=== PATIENT | female | born 1945 | race Caucasian/White ===

== ENCOUNTER → 2016-06-12 | Day surgery (SDC) | payer OTHER ==
[~2016-06-12] VITALS: Ht 162.6 cm; Wt 90.7 kg
[~2016-06-12] MED LIST: ASPIRIN EC81 M1 PO; BYSTOLIC10 M1 PO; DAILY MULTIPLE1 EACH PO; ELIQUIS5 M1 PO; ELIQUIS5 M2 PO; ESCITALOPRAM OX20 MG PO; FLEXERIL 5MG TAB5 MG PO; MELOXICAM15 M1 PO; METFORMIN HCL1000 M1 PO; METFORMIN HCL500 M2 PO; METFORMIN HCL500 M3 PO; SAVELLA PO; SAVELLA50 M1 PO; SIMVASTATIN40 M1 PO; VALSARTAN160 M1 PO; ZOLPIDEM TARTRAT5 M1 PO
--- NOTE | 2016-06-12 11:53 | Operative Report ---
Operative/Inv Procedure Report Surgery Date: 06/12/16 Name of Procedure: Left partial mastectomy with wire localization and sentinel lymph node biopsy Pre-Operative Diagnosis: Left breast cancer, status post neoadjuvant chemotherapy Post-Operative Diagnosis: Same Estimated Blood Loss: less than 50ml Surgeon/Off Track Betting Manager: ANITA ZHAO MD Anesthesia: laryngeal mask airway Specimens: [place] lymph node 1, left lumpectomy, cranial margin, caudal margin, medial margin, lateral margin, deep margin, anterior margin Operative/Procedure Note Note: Patient was brought to the operating room on 06/12/2016 and placed supine on the table. Preoperative lymphoscintigraphy and needle localization were performed and those films were reviewed. She was given 2 g of Ancef in the left breast was prepped and draped in a sterile fashion using ChloraPrep. 3 mL of methylene blue diluted with 2 mL saline was injected in the retroareolar fashion. Local anesthesia 1% lidocaine mixed half percent Marcaine was given and the axilla was approached first. A transverse incision was made in the lower axilla. The axilla was entered and a single hot lymph node was identified and excised. There were no other hot, blue, or palpable lymph nodes in the axilla. Hemostasis adequate, clavipectoral fascia was closed using interrupted Vicryl sutures, and the skin was closed using a running Biosyn subcutaneous color stitch. The breast was then approached. After ministering local anesthesia, a curvilinear incision was made in the periareolar region. The wire was dissected and brought into the incision. The area of concern was grasped using an Allis clamp and dissected. The specimen was removed and marked for orientation using margin map. Intraoperative x-ray confirmed the presence of the clip in the specimen. Margins were taken in the cranial, caudal, medial, lateral, deep, and anterior positions. This was adequate. A 2 x 2 BioSorb Marker was placed area and this was fastened to the adjacent tissue using Maxon sutures. Deep tissue was proximal made using Vicryl sutures. Was closed using running Biosyn subcuticular stitch. Stretchers and sterile dressings were applied, the patient 's transferred to the recovery room in satisfactory condition having tolerated the procedure well.
--- NOTE | 2016-06-12 14:20 | MAMMOGRAPHY REPORT ---
EXAMINATION: MM PREOPERATIVE LOCALIZATION BREAST, LEFT CLINICAL INFORMATION: A 70-year-old female with invasive ductal carcinoma, diagnosed on ultrasound-guided biopsy done on 01/13/2016. Preoperative needle localization is requested. TECHNIQUE: After the details of the procedure, as well as the risks, benefits and alternatives to the procedure, were explained to the patient in detail, and all of her questions were answered, preoperative needle localization was performed. Mammographic imaging of the left breast in the LM projection confirms the presence of a tissue marker (ribbon-shaped metallic clip) at the site of the prior ultrasound-guided biopsy at 1:00, 6 cm from the nipple. The skin of the left breast was then cleansed with sterile solution. Using mammographic guidance, aseptic technique and 2% 6 mL lidocaine for local anesthesia, a 5 cm Vow To Be Chic needle-wire system was advanced into the breast from a lateral approach. Orthogonal views were then obtained. Final adjustments of the needle tip position were made, and the wire deployed. The needle was taken out. The patient tolerated the procedure well, and was discharged from the department of radiology in good stable condition. The images were appropriately labelled. A worksheet was appropriately filled out and was sent with the patient to the OR. IMPRESSION: Successful mammographically-guided preoperative needle localization of the clinically known, biopsy proved invasive ductal carcinoma at 1:00, 6 cm from the nipple within the left breast. EXAMINATION: MM NEEDLE LOCALIZATION SPECIMEN FROM BREAST, LEFT TECHNIQUE: Single radiograph of the excised breast tissue is performed. FINDINGS: The specimen shows the hookwire is delivered intact. The biopsy clip marker and the underlying mass are identified in the specimen IMPRESSION: Successful needle localization of the biopsy-proven invasive ductal carcinoma at 1:00, 6 cm from the nipple within the left breast. Results were called to Dr. Gomez in the operating room at the time of imaging. The histology report is pending.
== END ==
LOC: STS 01:51 → CBW.IIU 08:00 → STS 08:00 → CBW.MAMMO 08:30
DX: C50.912 Malignant neoplasm of unspecified site of left female breast (principal); Z17.1 Estrogen receptor negative status [ER-]; E11.9 Type 2 diabetes mellitus without complications; Z79.84 Long term (current) use of oral hypoglycemic drugs; I10 Essential (primary) hypertension
CPT/HCPCS: 88305; 88307; C9728; J0131; J0690; J2001; J2250

== ENCOUNTER 2016-09-01 13:52 | Inpatient (IN) | payer OTHER ==
[~2016-09-01] VITALS: Ht 162.6 cm; Wt 88.5 kg
[~2016-09-01 13:52] MED LIST changes: -BYSTOLIC10 M1 PO; -ELIQUIS5 M1 PO; -ELIQUIS5 M2 PO; -MELOXICAM15 M1 PO; -METFORMIN HCL1000 M1 PO; -METFORMIN HCL500 M3 PO; -SAVELLA PO
--- NOTE | 2016-09-01 14:00 | NUR ---
70 YEAR OLD FEMALE STATES THAT SHE IS UNDERGOING TREATMENTS FOR L BREAST CANCER AND THAT LAST TREATMENT WAS WEDNESDAY. STARTED NOT FEELING WELL WEDNESDAY, EXERTIONAL SOB, O2 SAT 100% ON RA, COMPLAINS OF FACIAL SWELLING AND SLEEPING ALOT . ALSO COMPLAINS OF L SIDE NECK AND EAR PAIN THAT STARTED SATUDAY. DENIES CP.
--- NOTE | 2016-09-01 14:59 | NUR ---
DR. SCHMIDT TO BEDSIDE FOR EVALUATION.
--- NOTE | 2016-09-01 15:20 | NUR ---
PROVIDING URINE SPEC.
--- NOTE | 2016-09-01 15:44 | RADIOLOGY REPORT ---
EXAMINATION: XR CHEST CLINICAL INFORMATION: Shortness of breath. COMPARISON: Chest x-ray 09/01/2016. CTA of chest 05/07/2016 TECHNIQUE: 2 views of the chest were obtained. FINDINGS: No change position Central port catheter tip in superior vena cava. Lungs are clear. No pulmonary vascular congestion. No infiltrate or pleural effusion. Cardiac and mediastinal contours are normal. Heart size is normal. Multilevel endplate degenerative spurring of dorsal spine. Surgical clips in left anterior chest wall. IMPRESSION: No acute abnormality of chest.
[2016-09-01 16:00] LABS: ABSOLUTE BASOPHIL COUNT 0 /CUMM (0.0-0.2); ABSOLUTE EOSINOPHIL COUNT 0 /CUMM (0.0-0.7); ABSOLUTE GRANULOCYTE CT 7.1 /CUMM (1.4-6.5); ABSOLUTE LYMPH COUNT 0.9 /CUMM (1.2-3.4); ABSOLUTE MONOCYTE COUNT 0.2 /CUMM (0.10-0.60); BASOPHIL % 0.2 % (0.0-2.0); EOSINOPHIL % 0.5 % (0-5); GRANULOCYTE % 85.9 % (42.2-75.2); MEAN CORPUSCULAR HGB CONC 33.5 G/DL (33.0-37.0); MEAN CORPUSCULAR VOLUME 86.6 FL (81.0-99.0); MEAN PLATELET VOLUME 8.6 FL (7.4-10.4); PLATELET COUNT 334 /CUMM (130-400); RBC DISTRIBUTION WIDTH 17.1 % (11.5-14.5); RED BLOOD CELL CT 3.11 /CUMM (4.20-5.40); WHITE BLOOD CELL COUNT 8.3 /CUMM (4.8-10.8)
[2016-09-01] MEDS ORDERED: METFORMIN HCL500 M3 PO (16:31)
[2016-09-01] MEDS ORDERED: SAVELLA PO (16:32)
[2016-09-01] MEDS ORDERED: BYSTOLIC10 M1 PO (16:32)
[2016-09-01] MEDS ORDERED: MELOXICAM15 M1 PO (16:33)
--- NOTE | 2016-09-01 17:02 | ED DYSPNEA/ASTHMA COMPLAINT ---
History of Present Illness General Chief Complaint: General Adult Stated Complaint: SOB, FACIAL SWELLING, BEING TREATED FOR BREAST CA Source: patient, friend Exam Limitations: no limitations Vital Signs & Intake/Output Vital Signs & Intake/Output Vital Signs Date Time Temp Pulse Resp B/P B/P Pulse O2 O2 Flow FiO2 Mean Ox Delivery Rate 09/01 1642 100 18 132/64 97 Room Air 09/01 1357 97.5 106 20 116/78 100 Room Air Allergies Coded Allergies: No Known Allergies (06/08/16) Reconcile Medications Aspirin (Ecotrin*) 81 MG TABLET.DR 1 TAB PO DAILY PROPHO (Reported) Escitalopram Oxalate 20 MG TABLET 1 TAB PO DAILY ANXIETY / DEPRESSION ( Reported) Meloxicam 15 MG TABLET 1 TAB PO DAILY PAIN/INFLAMMATION (Reported) Metformin HCl 500 MG TABLET 1 TAB PO BID DM (Reported) Metformin HCl (Metformin HCl ER) 500 MG TAB.ER.24 1 TAB PO DAILY DM II ( Reported) Milnacipran HCl (Savella) 25 MG TABLET 1 TAB PO BID PAIN (Reported) Multivitamin (Daily Multiple Vitamin) 1 EACH TABLET 1 TAB PO DAILY PROPHO ( Reported) Nebivolol HCl (Bystolic) 10 MG TABLET 1 TAB PO DAILY BP (Reported) Simvastatin (Simvastatin*) 40 MG TABLET 1 TAB PO QPM CHOLESTEROL (Reported) Valsartan 160 MG TABLET 1 TAB PO DAILY HTN (Reported) Zolpidem Tartrate 5 MG TABLET 1 TAB PO QPMP INSOMNIA (Reported) Triage Note: 70 YEAR OLD FEMALE STATES THAT SHE IS UNDERGOING TREATMENTS FOR L BREAST CANCER AND THAT LAST TREATMENT WAS WEDNESDAY. STARTED NOT FEELING WELL WEDNESDAY, EXERTIONAL SOB, O2 SAT 100% ON RA, COMPLAINS OF FACIAL SWELLING AND SLEEPING ALOT . ALSO COMPLAINS OF L SIDE NECK AND EAR PAIN THAT STARTED SATUDAY. DENIES CP. Triage Nurses Notes Reviewed? yes HPI: 70 yo F PMH HTN, HLD, BCA (on chemotherapy) presenting with shortness of breath. Acute onset shortness of breath starting this afternoon while patient was walking/exercising with her friend, safely worse with exertion. ROS (+) for some right upper back pain for the last 3-4 days (worse with movement of neck and right shoulder, nonpleuritic) and intemittent urinary Sx with dysuria and increased frequency for the last month. Denies fevers, chills, chest pain, palpitations, lower extremity swelling or pain, recent immobility or hospitalization hospitalization, abdominal pain, nausea, vomiting, diarrhea, melena, hematochezia, headaches, neck pain, she'll changes or other focal neurologic symptoms. Patient receives chemotherapy for breast cancer once a week on , patient has not had these symptoms previously related to chemotherapy. (LILIAM BRADFORD MD) Past History Travel History Traveled to [place] past 21 day No Medical History Any Pertinent Medical History? see below for history Neurological: NONE EENT: NONE Cardiovascular: NONE Respiratory: NONE Gastrointestinal: NONE Hepatic: NONE Renal: NONE Musculoskeletal: FIBROMYALGIA Psychiatric: NONE Endocrine: NONE Blood Disorders: NONE Cancer(s): breast cancer HEATER HELPER/Reproductive: NONE Surgical History Surgical History: non-contributory Psychosocial History What is your primary language Nepali Tobacco Use: Never used ETOH Use: denies use Illicit Drug Use: denies illicit drug use Family History Hx Contributory? Yes (LILIAM BRADFORD MD) Review of Systems Review of Systems Constitutional: Reports: no symptoms. EENTM: Reports: no symptoms. Respiratory: Reports: short of breath. Denies: cough, stridor, wheezing. Cardiovascular: Denies: chest pain, palpitations, peripheral edema, syncope. GI: Reports: no symptoms. Genitourinary: Reports: no symptoms. Musculoskeletal: Reports: back pain, muscle pain, muscle stiffness. Skin: Reports: no symptoms. Neurological/Psychological: Reports: no symptoms. Hematologic/Endocrine: Reports: no symptoms. Immunologic/Allergic: Reports: no symptoms. All Other Systems: Reviewed and Negative (LILIAM BRADFORD MD) Physical Exam Physical Exam General Appearance: well developed/nourished, no apparent distress, alert, awake Head: atraumatic Eyes: Bilateral: PERRL, EOMI. Ears, Nose, Throat: normal pharynx, normal ENT inspection Neck: normal inspection, full range of motion Respiratory: normal breath sounds, no respiratory distress, lungs clear Cardiovascular: normal peripheral pulses, Tachycardic Peripheral Pulses: 2+ radial (R), 2+ radial (L), 2+ dorsalis pedis (R), 2+ dorsalis pedis (L) Gastrointestinal: normal bowel sounds, soft, non-tender Comments: Pulmonary: Lungs clear to auscultation throughout without adventitious lung sounds, normal work of breathing without respiratory distress Extremities: No appreciable lower extremity edema or tenderness to palpation. Core Measures ACS in differential dx? Yes Severe Sepsis Present: No Septic Shock Present: No (SUZETTE GO,LILIAM) Progress Differential Diagnosis: asthma, AMI, altitude sickness, bronchitis, costochondritis, CHF, COPD, musculoskeletal pain, pericarditis, pulmonary embolism, pneumonia, pneumothorax, rib fracture, unstable angina Plan of Care: Orders Procedure Date/time Status Regular Diet 09/02 B Active Add-on Test (ER Only) 09/01 2137 Active ED Holding Orders 09/01 2129 Active Vital Signs 09/01 2129 Active Code Status 09/01 2129 Active PARTIAL THROMBOPLASTIN TIME 09/01 2056 Complete PROTHROMBIN TIME 09/01 2056 Complete Patient Data 09/01 2050 Active Weight 09/02 2039 Active Admit to inpatient 09/01 2030 Active CULTURE,URINE 09/01 163 Active EKG 09/01 1559 Active URINALYSIS 09/01 1508 Complete TROPONIN LEVEL 09/01 1508 Complete HEPATIC FUNCTION PANEL 09/01 1508 Complete CBC WITHOUT DIFFERENTIAL 09/01 1508 Complete BASIC METABOLIC PANEL 09/01 1508 Complete Intake & Output 09/01 1506 Active Current Medications Sig/Estephania Start time Last Medication Dose Stop Time Status Admin Heparin Sodium 5,000 UNIT .Q1M 09/01 2014 AC 09/01 (Porcine) 2114 N/A 1 UNIT (No Carrier) Heparin Sodium 25,000 UNIT Q24H 09/01 2014 AC 09/01 (Porcine) 2114 (Heparin) Sodium Chloride 500 ML Trimethoprim/ 1 TAB ONCE ONE 09/01 1515 CAN Sulfamethoxazole 09/01 1516 (Bactrim DS) Laboratory Tests 09/01/162058: PT 13.3 H, INR 1.27 H, APTT 26 09/01/16 1630: Urine Color YEL, Urine Clarity HAZY H, Urine pH 5.5, Ur Specific [place] 1.025, Urine Protein 100 H, Urine Ketones NEG, Urine Nitrite NEG, Urine Bilirubin NEG, Urine Urobilinogen 0.2, Ur Leukocyte Esterase SMALL H, Ur Microscopic SEDIMENT EXAMINED, Urine RBC 15-25 H, Urine WBC 15-25 H, Ur Epithelial Cells FEW, Urine Bacteria FEW H, Hyaline Casts RARE H, Urine Mucus FEW, Urine Hemoglobin MOD H , Urine Glucose 250 H 09/01/16 1518: Anion Gap 12, Estimated GFR > 60, BUN/Creatinine Ratio 30.0 H, Glucose 223 H, Calcium 9.6, Total Bilirubin 0.6, Direct Bilirubin 0.3, AST 37 H, ALT 80 H, Alkaline Phosphatase 132 H, Troponin I 0.03, Total Protein 6.0 L, Albumin 3.7, CBC w Diff NO MAN DIFF REQ, RBC 3.11 L, MCV 86.6, MCH 29.0, RDW 17.1 H, MPV 8.6, Gran % 85.9 H, Lymphocytes % 11.2 L, Monocytes % 2.2, Eosinophils % 0.5, Basophils % 0.2, Absolute Granulocytes 7.1 H, Absolute Lymphocytes 0.9 L, Absolute Monocytes 0.2, Absolute Eosinophils 0, Absolute Basophils 0, PUBS MCHC 33.5 Microbiology 09/01 1630 URINE ROUT: Urine Culture - RECD Physician MDM: 70 yo F PMH BCA presenting with acute onset shortness of breath. Tachycardic in the low 100s, otherwise VSS, afebrile, cardiopulmonary exam as above. DDx: Pneumonia, pneumothorax, pleural effusion, pericardial effusion, PE, ACS, chemotherapy therapy side effect. ECG sinus tachycardia, non-ischemic. Troponin negative. BMP with mild hyponatremia 134, BUN minimally elevated, mildly low bicarb at 21, glucose 246, normal anion gap, low concern for DKA. CBC with anemia Hgb 9.1 around baseline, normal platelets, no leukocytosis. Chest x-ray without focal consolidation or airspace disease. UA with 15-20 RBCs and WBCs, some bacteria, given urinary symptoms will treat with ceftriaxone in ED, Keflex if discharged. 1 L normal saline for dehydration on labs, elevated glucose, tachycardia. CTA PE with "Adequate contrast opacification of the pulmonary arterial vasculature, with small emboli identified within segmental and subsegmental branches of the right upper, right lower and left lower lobes. " Given normal BP with no evidence of right heart strain on labs or CT chest, patient stable for treatment at [facility] without transfer to higher level of care. Heparin GTT started after discussion of risks and benefits the patient. Admit to Dr. Hughes. (SUZETTE GO,LILIAM) Initial ED EKG: normal axis (SUZETTE GO,LILIAM) Diagnostic Imaging: Viewed by Me: CT Scan. Discussed w/RAD: CT Scan. Comments: PATIENT: NATALEE SWENSON PRESENT AGE: 70 PATIENT ACCOUNT NO: [id number] : 46 LOCATION: [facility] ORDERING PHYSICIAN: LILIAM BRADFORD MD SERVICE DATE: 09/01/16 EXAM TYPE: CAT - CTA CHEST-PULMONARY EMBOLISM EXAMINATION: CT ANGIOGRAM OF THE CHEST WITH AND WITHOUT CONTRAST (CT PULMONARY ANGIOGRAM FOR PE) CLINICAL INFORMATION: Chest pain. Evaluate for pulmonary embolism. COMPARISON: CTA chest 05/07/2016. CTA chest 11/22/2014. TECHNIQUE: Prior to contrast administration, noncontrast localization images were obtained. Subsequently, multidetector volumetric imaging was performed from the thoracic inlet to below the diaphragms following the administration of 95 mL Optiray 350 intravenous contrast. No contrast reaction reported. Sagittal, coronal, and MIP oblique sagittal reformatted images were obtained on the CT workstation, uploaded to PACS, and reviewed. Total exam dose-length product 557 mGy-cm. FINDINGS: QUALITY OF STUDY/CONTRAST BOLUS: Adequate contrast opacification of the pulmonary arterial vasculature. PULMONARY ARTERIES: Small intraluminal filling defects within segmental and subsegmental branches of the right upper, right lower and left lower lobes, indicative of pulmonary emboli. No large central pulmonary emboli. The pulmonary arteries are normal in caliber. THORACIC AORTA: Normal caliber of the thoracic aorta, without aneurysmal dilatation. LUNG: No focal consolidation, nodules or masses. PLEURA: No pleural effusion or pneumothorax. MEDIASTINUM: Normal heart size. No pericardial effusion. Prominent soft tissue mass within the anterior mediastinum measuring 1.5 x 1.6 cm, not significantly changed relative to a prior examination dated 11/22/2014. No significant hilar adenopathy. No evidence of septal bowing or right heart strain. CHEST WALL/AXILLA: No axillary or internal mammary lymphadenopathy. There are surgical clips within the left breast which may be related to recent left breast biopsy. OSSEOUS STRUCTURES: No acute osseous abnormality. Normal alignment of the thoracolumbar spine. No visible destructive osseous lesions. UPPER ABDOMEN: No acute findings within the upper abdomen. There is reflux of contrast into the hepatic veins and IVC. However, the right atrium and right ventricle are not dilated. IMPRESSION: 1. Adequate contrast opacification of the pulmonary arterial vasculature, with small emboli identified within segmental and subsegmental branches of the right upper, right lower and left lower lobes. Contrast is visualized within the hepatic veins as well as within the IVC. However, there is no dilatation of the right atrium and right ventricle and no straightening of the intraventricular septum to suggest right heart strain. 2. Redemonstrated is a soft tissue mass within the anterior mediastinum measuring 1.5 x 1.6 cm. This nodule does not appear significantly changed relative to a prior examination dated 11/22/2014. It may reflect residual thymic tissue although versus a prominent anterior mediastinal lymph node. This critical result was discussed with Dr. Liliam Bradford at 8:02 PM on 09/01/2016 and it was ascertained that the content and urgency of the report was understood at the time of direct communication. DICTATED BY: KELSEY LYON MD DATE/TIME DICTATED:09/01/161942 VOCATIONAL ED INSTRUCTOR:NANETTE DATE/TIME TRANSCRIBED:09/01/161942 CONFIDENTIAL, DO NOT COPY WITHOUT APPROPRIATE AUTHORIZATION. <Electronically signed in Other Vendor System> SIGNED BY: KELSEY LYON MD 09/01/162005 (WANDA SCHROEDER MD) Departure Departure Disposition: STILL A PATIENT Condition: Stable Clinical Impression Primary Impression: Pulmonary embolism Referrals: DENICE HUGHES MD (PCP/Family) Departure Forms: Customer Survey General Discharge Information Admission Note Spoke With: STEVE ZAMUDIO MD Documentation of Exam: Documentation of any treatments & extenuating circumstances including Concerns Regarding Discharge (functional status, medication knowledge or non-compliance, living conditions, etc.) that warrant an admission rather than observation: [ Patient is a 70-year-old female with a history of breast cancer who presents to the emergency department with acute onset shortness of breath and right upper back pain, tachycardic, found to have acute pulmonary embolism in multiple subsegments of her lungs, she requires admission for initiation of IV anticoagulants and bridging to PO anticoagulants, she requires admission for telemetry and monitoring for arrhythmias related to PE, she requires admission for IV antibiotics and treatment of UTI, she requires admission for ongoing fluid resuscitation for dehydration/hyperglycemia, if discharged without appropriately quite a treatment or inpatient monitoring the patient has a high risk of cardiovascular decompensation related to clots in her lungs, with possible significant morbidity and sudden .] (LILIAM BRADFORD MD) Critical Care Note Critical Care Note Critical Care Time: non-applicable (LILIAM BRADFORD MD)
--- NOTE | 2016-09-01 19:26 | NUR ---
PORT ACCESSED. PT TO CAT SCAN VIA STRETCHER.
--- NOTE | 2016-09-01 20:02 | NUR ---
DR. SCHMIDT TO BEDSIDE TO DISCUSS RESULTS AND POC.
--- NOTE | 2016-09-01 20:06 | CT SCAN REPORT ---
EXAMINATION: CT ANGIOGRAM OF THE CHEST WITH AND WITHOUT CONTRAST (CT PULMONARY ANGIOGRAM FOR PE) CLINICAL INFORMATION: Chest pain. Evaluate for pulmonary embolism. COMPARISON: CTA chest 05/07/2016. CTA chest 11/22/2014. TECHNIQUE: Prior to contrast administration, noncontrast localization images were obtained. Subsequently, multidetector volumetric imaging was performed from the thoracic inlet to below the diaphragms following the administration of 95 mL Optiray 350 intravenous contrast. No contrast reaction reported. Sagittal, coronal, and MIP oblique sagittal reformatted images were obtained on the CT workstation, uploaded to PACS, and reviewed. Total exam dose-length product 557 mGy-cm. FINDINGS: QUALITY OF STUDY/CONTRAST BOLUS: Adequate contrast opacification of the pulmonary arterial vasculature. PULMONARY ARTERIES: Small intraluminal filling defects within segmental and subsegmental branches of the right upper, right lower and left lower lobes, indicative of pulmonary emboli. No large central pulmonary emboli. The pulmonary arteries are normal in caliber. THORACIC AORTA: Normal caliber of the thoracic aorta, without aneurysmal dilatation. LUNG: No focal consolidation, nodules or masses. PLEURA: No pleural effusion or pneumothorax. MEDIASTINUM: Normal heart size. No pericardial effusion. Prominent soft tissue mass within the anterior mediastinum measuring 1.5 x 1.6 cm, not significantly changed relative to a prior examination dated 11/22/2014. No significant hilar adenopathy. No evidence of septal bowing or right heart strain. CHEST WALL/AXILLA: No axillary or internal mammary lymphadenopathy. There are surgical clips within the left breast which may be related to recent left breast biopsy. OSSEOUS STRUCTURES: No acute osseous abnormality. Normal alignment of the thoracolumbar spine. No visible destructive osseous lesions. UPPER ABDOMEN: No acute findings within the upper abdomen. There is reflux of contrast into the hepatic veins and IVC. However, the right atrium and right ventricle are not dilated. IMPRESSION: 1. Adequate contrast opacification of the pulmonary arterial vasculature, with small emboli identified within segmental and subsegmental branches of the right upper, right lower and left lower lobes. Contrast is visualized within the hepatic veins as well as within the IVC. However, there is no dilatation of the right atrium and right ventricle and no straightening of the intraventricular septum to suggest right heart strain. 2. Redemonstrated is a soft tissue mass within the anterior mediastinum measuring 1.5 x 1.6 cm. This nodule does not appear significantly changed relative to a prior examination dated 11/22/2014. It may reflect residual thymic tissue although versus a prominent anterior mediastinal lymph node. This critical result was discussed with Dr. Tanmay Kidd at 8:02 PM on 09/01/2016 and it was ascertained that the content and urgency of the report was understood at the time of direct communication.
--- NOTE | 2016-09-01 21:18 | NUR ---
HEPARIN DRIP INITIATED PER EMAR.
[2016-09-01 21:23] LABS: PT 13.3 SEC (9.4-12.5); PTT 26 SEC (25-37)
--- NOTE | 2016-09-01 23:18 | History & Physical ---
JORGE LUIS SOUZA 09/01/16 2318: General Information and HPI MD Statement: I have seen and personally examined NATALEE SWENSON and documented this H&P. The patient is a 70 year old F who presented with a patient stated chief complaint of Shortness of breath Source of Information: patient Exam Limitations: no limitations History of Present Illness: 70-year-old woman past medical history significant for recently diagnosed breast cancer in December 2015 on weekly chemotherapy 12/01 cycles status post radiation and lumpectomy, recently diagnosed diabetes mellitus, hypertension, fibromyalgia. Came to ED for evaluation of in for sudden onset shortness of breath. Stated after her last treatment of chemotherapy last week she felt weakness, and on Wednesday had facial swelling but did not think anything of it and attributed to chemotherapy swelling subsided. On Wednesday she went for work but she left calf day because she was feeling very tired. Yesterday she experienced sudden onset shortness of breathing while walking a few steps. Denied chest pain, palpitations lower extremity swelling, recent travel. Also reports 3 months of worsening urinary symptoms such as dysuria. She is also has seen a number of doctors including a cable cutter and swager. Denies abdominal pain, flank pain, fever, chills. Allergies/Medications Allergies: Coded Allergies: No Known Allergies (06/08/16) Home Med list Aspirin (Ecotrin*) 81 MG TABLET.DR 1 TAB PO DAILY PROPHO (Reported) Escitalopram Oxalate 20 MG TABLET 1 TAB PO DAILY ANXIETY / DEPRESSION ( Reported) Meloxicam 15 MG TABLET 1 TAB PO DAILY PAIN/INFLAMMATION (Reported) Metformin HCl 500 MG TABLET 1 TAB PO BID DM (Reported) Metformin HCl (Metformin HCl ER) 500 MG TAB.ER.24 1 TAB PO DAILY DM II ( Reported) Milnacipran HCl (Savella) 25 MG TABLET 1 TAB PO BID PAIN (Reported) Multivitamin (Daily Multiple Vitamin) 1 EACH TABLET 1 TAB PO DAILY PROPHO ( Reported) Nebivolol HCl (Bystolic) 10 MG TABLET 1 TAB PO DAILY BP (Reported) Simvastatin (Simvastatin*) 40 MG TABLET 1 TAB PO QPM CHOLESTEROL (Reported) Valsartan 160 MG TABLET 1 TAB PO DAILY HTN (Reported) Zolpidem Tartrate 5 MG TABLET 1 TAB PO QPMP INSOMNIA (Reported) Compliance With Home Meds: GOOD Past History Travel History Traveled to [place] past 21 day No Medical History Neurological: NONE EENT: NONE Cardiovascular: NONE Respiratory: NONE Gastrointestinal: NONE Hepatic: NONE Renal: NONE Musculoskeletal: FIBROMYALGIA Psychiatric: NONE Endocrine: NONE Blood Disorders: NONE Cancer(s): breast cancer GUEST RELATIONS EXECUTIVE/Reproductive: NONE Surgical History Surgical History: non-contributory Past Family/Social History Family History Relations & Conditions if any Relation not specified for: FHx: uterine cancer Psychosocial History Where do you live? Home Smoking Status: Never Smoked ETOH Use: denies use Illicit Drug Use: denies illicit drug use Functional Ability ADLs Independent: dressing, eating, toileting, bathing. Ambulation: independent IADLs Independent: shopping, housework, finances, food prep, telephone, transportation , medication admin. Review of Systems Review of Systems Constitutional: Reports: malaise, weakness. Denies: chills, diaphoresis, fever, unexplained weight loss. Cardiovascular: Denies: chest pain, edema, orthopena, palpitations, peripheral edema, syncope. Respiratory: Denies: cough, hemoptysis, orthopnea, short of breath, sputum production, stridor, wheezing. GI: Denies: abdominal pain, bloating, constipation, diarrhea, distention, bowel incontinence, melena, nausea, bloody stool, changes in stool, vomiting, steatorrhea. Genitourinary: Reports: dysuria. Denies: discharge, frequency, hematuria, hesitation, nocturia , pain, urgency. Exam & Diagnostic Data Last 24 Hrs of Vital Signs/I&O Vital Signs Date Time Temp Pulse Resp B/P B/P Pulse O2 O2 Flow FiO2 Mean Ox Delivery Rate 09/02 0558 98.2 97 17 140/68 96 Room Air 09/02 0237 97.7 99 17 144/79 97 Room Air 09/02 0058 97.5 114 18 150/86 09/01 2328 97.5 114 18 150/86 95 Room Air Room Air 09/01 2048 97.6 104 18 135/64 98 Room Air Room Air 09/01 1642 100 18 132/64 97 Room Air 09/01 1357 97.5 106 20 116/78 100 Room Air Intake & Output 09/02 0800 09/02 0000 09/01 1600 Intake Total 1000 Output Total Balance 1000 Intake, IV 1000 Patient 199 lb 199 lb 199 lb Weight Weight Reported by Patient Reported by Patient Measurement Method Physical Exam General Appearance Alert, Oriented X3, Cooperative, No Acute Distress HEENT Atraumatic, PERRLA, EOMI, Mucous Membr. moist/pink Neck Supple, No thryomegaly Lymphatic Axillary nl, Cervical nl Cardiovascular Regular Rate, Normal S1, Normal S2 Lungs Clear to Auscultation, Normal Air Movement Abdomen Normal Bowel Sounds, Soft, No Tenderness Extremities No Edema Diagnostic Data EKG Results sinus tachy, QTc 460 CXR Results FINDINGS: No change position Central port catheter tip in superior vena cava. Lungs are clear. No pulmonary vascular congestion. No infiltrate or pleural effusion. Cardiac and mediastinal contours are normal. Heart size is normal. Multilevel endplate degenerative spurring of dorsal spine. Surgical clips in left anterior chest wall. IMPRESSION: No acute abnormality of chest. Other Results CTA CHEST-PULMONARY EMBOLISM FINDINGS: QUALITY OF STUDY/CONTRAST BOLUS: Adequate contrast opacification of the pulmonary arterial vasculature. PULMONARY ARTERIES: Small intraluminal filling defects within segmental and subsegmental branches of the right upper, right lower and left lower lobes, indicative of pulmonary emboli. No large central pulmonary emboli. The pulmonary arteries are normal in caliber. THORACIC AORTA: Normal caliber of the thoracic aorta, without aneurysmal dilatation. LUNG: No focal consolidation, nodules or masses. PLEURA: No pleural effusion or pneumothorax. MEDIASTINUM: Normal heart size. No pericardial effusion. Prominent soft tissue mass within the anterior mediastinum measuring 1.5 x 1.6 cm, not significantly changed relative to a prior examination dated 11/22/2014. No significant hilar adenopathy. No evidence of septal bowing or right heart strain. CHEST WALL/AXILLA: No axillary or internal mammary lymphadenopathy. There are surgical clips within the left breast which may be related to recent left breast biopsy. OSSEOUS STRUCTURES: No acute osseous abnormality. Normal alignment of the thoracolumbar spine. No visible destructive osseous lesions. UPPER ABDOMEN: No acute findings within the upper abdomen. There is reflux of contrast into the hepatic veins and IVC. However, the right atrium and right ventricle are not dilated. IMPRESSION: 1. Adequate contrast opacification of the pulmonary arterial vasculature, with small emboli identified within segmental and subsegmental branches of the right upper, right lower and left lower lobes. Contrast is visualized within the hepatic veins as well as within the IVC. However, there is no dilatation of the right atrium and right ventricle and no straightening of the intraventricular septum to suggest right heart strain. 2. Redemonstrated is a soft tissue mass within the anterior mediastinum measuring 1.5 x 1.6 cm. This nodule does not appear significantly changed relative to a prior examination dated 11/22/2014. It may reflect residual thymic tissue although versus a prominent anterior mediastinal lymph node. Assessment/Plan Assessment: 70-year-old woman past medical history significant for recently diagnosed breast cancer in December 2015 on weekly chemotherapy 12/01 cycles status post radiation and lumpectomy, recently diagnosed diabetes mellitus, hypertension, fibromyalgia. Came to ED for evaluation of in for sudden onset shortness of breath. As Ranked By This Provider Problem List: 1. Pulmonary embolism Assessment/Plan Admit to telemetry floor for continuous cardiac monitoring Patient started on IV heparin Follow-up echo 2. Breast cancer Assessment/Plan Dr. Tillman's office informed 3. UTI (urinary tract infection) Assessment/Plan iv ceftriazone 4. DVT prophylaxis 5. Full code status Core Measures/Miscellaneous Acute Coronary Syndrome ACS Diagnosis: No Cerebrovascular Accident CVA/TIA Diagnosis: No Congestive Heart Failure CHF Diagnosis: No VTE (View Protocol) VTE Risk Factors: Age > 40, Cancer/chemo/oth therapy No Mech VTE prophylaxis d/t: No contraindications No VTE Pharm Prophylaxis d/t: No contraindications VTE Diagnosis: Yes VTE Type: Pulmonary Embolism VTE Confirmed by (Test): CT CHEST ANGIOGRAM Sepsis (View Protocol) Severe Sepsis Present: No Septic Shock Septic Shock Present: No Miscellaneous Documentation Attending Case Discussed With: STEVE ZAMUDIO MD Primary Care Physician: DENICE KRISHNA MD Patient sees these Specialists Dr. Tillman Level of Patient Care: Telemetry ENE ARANA 09/02/16 0513: Resident Review Statement Resident Statement: examined this patient, discussed with product marketing intern, discussed with case mgmt, reviewed images Other Findings: 70-year-old woman with recently diagnosed HER-2/keenan breast cancer, status post lumpectomy and sentinel node biopsy, currently on trastuzumab presented to [facility] ED with sudden onset shortness of breath, found to have pulmonary emboli on CTA, admitted to telemetry for observation and IV anticoagulation. Provoked VTE, in the setting of recent malignancy. Continue IV heparin for now. No right heart strain noted on CTA. Obtain 2-D echocardiogram to confirm the findings. May need weight dosed Lovenox for her PE, in the light of her recent cancer diagnosis. Please obtain formal hematology consult for decisions regarding choice of anticoagulation and duration. Urine positive for leukocyte esterase, continue IV ceftriaxone pending results of urine culture. IVF hydration. Continue other medications. Full code. Heart healthy diet. IV heparin as DVT prophylaxis for now. ERENDIRA GO,[facility] 09/02/16 0947: Attending MD Review Statement Attending Statement Attending MD Statement: examined this patient, discuss w/resident/PA/HAND [employer] MAKER, agreed w/resident/PA/HAND [employer] MAKER, reviewed EMR data (avail)
--- NOTE | 2016-09-01 23:32 | NUR ---
PT PLACED IN HOSPITAL BED, MOVED TO ROOM 4. RECIEVED REPORT FROM GÓMEZ CORTEZ. PT REMAINS ON HEPARIN DRIP AT 26MLS/HR. PT EATING BOXED LUNCH, TOLERATING WELL. PT OFFERING NO COMPLAINTS AT THIS TIME. SIDE RAILS UPRIGHT, CALL MALCOLM WITHIN REACH. LIGHTS DIMMED FOR COMFORT.
--- NOTE | 2016-09-02 00:12 | NUR ---
PT REQUESTING NIGHT TIME MEDICATIONS, HOUSE STAFF PAGED
--- NOTE | 2016-09-02 01:00 | NUR ---
PT MEDICATED WITH 50MG COZAAR, 20MG LIPITOR, AND 5MG AMBIEN PER EMAR. PT BP 150/86.
--- NOTE | 2016-09-02 02:12 | NUR ---
PT AMBULATED TO BATHROOM WITH STEADY GAIT NOTED, PT OFFERING NO COMPLAINTS AT THIS TIME. PLACED BACK ON WOOD SHINGLE ROOFER, NSR. WILL CTM.
--- NOTE | 2016-09-02 03:18 | NUR ---
PT REMAINS ASLEEP AT THIS TIME W/ RR NOTED. NO DISTRESS. NSR ON AEROPHYSICS ENGINEER. SIDE RAILS UPRIGHT, CALL MALCOLM WITHIN REACH. WILL CTM
--- NOTE | 2016-09-02 03:41 | NUR ---
PT IPOC IS UP TO DATE AT THIS TIME
--- NOTE | 2016-09-02 04:01 | NUR ---
PT IN SINUS TACH AT 108, NO COMPLAINTS OR DISTRESS AT THIS TIME.
--- NOTE | 2016-09-02 04:29 | NUR ---
PT REMAINS ASLEEP AT THIS TIME W/RR NOTED. NSR ON TEACHER CCLC. HEPARIN DRIP REMAINS AT 26MLS/HR PER EMAR. AUDIBLE SNORING HEARD. SIDE RAILS UPRIGHT. CALL MALCOLM WITHIN REACH. WILL CTM
--- NOTE | 2016-09-02 05:45 | NUR ---
PT AMBULATED TO BATHROOM WITH STEADY GAIT NOTED, NO DISTRESS.
--- NOTE | 2016-09-02 05:56 | NUR ---
EKG IN PROGRESS. BLOOD WORK OBTAINED AND SENT TO LAB -SST,YEISON STEELE FINGERSTICK DONE 224.
--- NOTE | 2016-09-02 05:59 | NUR ---
PT REMAINS NSR/ST ON INTEGRITY CONSULTANT @110. NO COMPLAINTS AT THIS TIME.
[2016-09-02 06:24] LABS: ABSOLUTE BASOPHIL COUNT 0 /CUMM (0.0-0.2); ABSOLUTE EOSINOPHIL COUNT 0.2 /CUMM (0.0-0.7); ABSOLUTE GRANULOCYTE CT 4.7 /CUMM (1.4-6.5); ABSOLUTE LYMPH COUNT 1.5 /CUMM (1.2-3.4); ABSOLUTE MONOCYTE COUNT 0.3 /CUMM (0.10-0.60); BASOPHIL % 0.3 % (0.0-2.0); EOSINOPHIL % 2.5 % (0-5); GRANULOCYTE % 69.6 % (42.2-75.2); HEMATOCRIT 26.3 % (37-47); MEAN CORPUSCULAR HGB 28.7 PG (27.0-31.0); MEAN CORPUSCULAR HGB CONC 33.1 G/DL (33.0-37.0); MEAN CORPUSCULAR VOLUME 86.8 FL (81.0-99.0); MEAN PLATELET VOLUME 8.5 FL (7.4-10.4); PLATELET COUNT 340 /CUMM (130-400); RED BLOOD CELL CT 3.04 /CUMM (4.20-5.40); WHITE BLOOD CELL COUNT 6.8 /CUMM (4.8-10.8)
--- NOTE | 2016-09-02 06:55 | NUR ---
PT REMAINS SINUS TACH AT 106 ON TRAINING AND DEVELOPMENT OFFICER. HEPARIN DRIP AT 26MLS/HR PER EMAR. NO COMPLAINTS AT THIS TIME. WILL CTM.
[2016-09-02 07:28] LABS: PTT 71 SEC (25-37)
--- NOTE | 2016-09-02 07:30 | NUR ---
ASSUMED CARE OF PT AT THIS TIME PT AWAKE, ALERT AND ORIENTED WITH NO COMPLAINTS. STATES SHE SLEPT "OK" AND IS COMFORTABLE AT THIS TIME. DENIES PAIN. DENIES SOB. SINUS TACH ON THE MONITOR, LOW 100'S (100-115). SAT 99% RA. HEPARIN DRIP INFUSING AT MAX DOSE 26 ML/HR. PER OVERNIGHT NURSE, PTT DUE AT 0300 PER PROTOCOL - WAS DRAWN AT 0600, ADDED ON AT 0700. RESULTED AT 71, WHICH REQUIRES NO CHANGE IN DRIP PER PROTOCOL. SPOKE WITH REGINALD ([id number]) WHO STATES OK TO CHECK NEXT PTT IN 12 HOURS FROM EARLIER DRAW WHICH WOULD BE 1800. STATESE PT WILL LIKELY BE ON ORAL ANTICOAGULANTS BY THEN - AWAITING INSURANCE APPROVAL. ALSO, PER REGINALD - NO ALPS NEED TO BE PLACED AT THIS TIME DUE TO HEPARIN DRIP AND PENDING LOWER EXTREMITY US FINGERSTICK 251. MED WITH INSULIN PER MAY. EATING OATMEAL.
[2016-09-02 08:50] VITALS: BP 130/82
--- NOTE | 2016-09-02 08:59 | PN- Housestaff ---
Subjective Follow-up For: Pulmonary embolism Complaints: no complaints Tele-Events Since Last Visit: No events Subjective: No active complaints Review of Systems Constitutional: Denies: chills, fever. EENTM: Denies: visual changes. Cardiovascular: Denies: chest pain, palpitations. Respiratory: Reports: short of breath. Denies: cough. Gastrointestinal: Denies: abdominal pain, nausea, vomiting. Objective Last 24 Hrs of Vital Signs/I&O Vital Signs Date Time Temp Pulse Resp B/P B/P Pulse O2 O2 Flow FiO2 Mean Ox Delivery Rate 09/02 1050 98.8 108 16 131/75 09/02 1049 98.8 108 16 131/75 09/02 0850 98.8 111 18 130/82 99 Room Air 09/02 0832 98.8 111 18 130/82 99 09/02 0558 98.2 97 17 140/68 96 Room Air 09/02 0237 97.7 99 17 144/79 97 Room Air 09/02 0058 97.5 114 18 150/86 09/01 2328 97.5 114 18 150/86 95 Room Air Room Air 09/01 2048 97.6 104 18 135/64 98 Room Air Room Air 09/01 1642 100 18 132/64 97 Room Air 09/01 1357 97.5 106 20 116/78 100 Room Air Intake & Output 09/02 1600 09/02 0800 09/02 0000 Intake Total 26 1000 Output Total 500 Balance 26 -500 1000 Intake, IV 26 1000 Output, Urine 500 Patient 199 lb 199 lb Weight Weight Reported by Patient Reported by Patient Measurement Method Physical Exam General Appearance: Alert, Oriented X3, Cooperative, No Acute Distress HEENT: Atraumatic, PERRLA Neck: No JVD Cardiovascular: Regular Rate, Normal S1, Normal S2, No Murmurs Lungs: Clear to Auscultation, Normal Air Movement Abdomen: Normal Bowel Sounds, Soft, No Tenderness Neurological: Normal Speech, Normal Tone Extremities: No Edema Current Medications: Current Medications Sig/Estephania Start time Last Medication Dose Route Stop Time Status Admin Aspirin Buffered 81 MG DAILY 09/02 1000 AC 09/02 PO 1050 Atorvastatin Calcium 20 MG 1700 09/02 1700 DC PO Atorvastatin Calcium 20 MG 1700 09/02 1700 AC PO Atorvastatin Calcium 20 MG ONCE ONE 09/02 0030 DC 09/02 PO 09/02 0031 0058 Ceftriaxone Sodium 1,000 MG 1800 09/02 1800 CAN Sodium Chloride 100 ML IV Ceftriaxone Sodium 0 .STK-MED ONE 09/01 1936 DC .ROUTE Ceftriaxone Sodium 1,000 MG ONCE ONE 09/01 1800 DC 09/01 IV 09/01 1801 1939 Diclofenac Sodium 1 MIKAL 4 TIMES/DAY PRN 09/01 2330 AC TOP Escitalopram Oxalate 20 MG DAILY 09/02 1000 AC 09/02 PO 1050 Heparin Sodium 0 .STK-MED ONE 09/01 2108 DC (Porcine) .ROUTE Heparin Sodium 5,000 UNIT .Q1M 09/01 2014 AC 09/01 (Porcine) IV PUSH 2115 N/A 1 UNIT Heparin Sodium 25,000 UNIT Q24H 09/01 2014 AC 09/01 (Porcine) IV 2115 Sodium Chloride 500 ML Ibuprofen 600 MG Q6P PRN 09/01 2315 AC PO Insulin Aspart 0 TIDAC 09/02 0800 AC 09/02 SC 1226 Losartan Potassium 50 MG DAILY 09/02 1000 AC 09/02 PO 1050 Losartan Potassium 50 MG ONCE ONE 09/02 0030 DC 09/02 PO 09/02 0031 0058 Metformin HCl 500 MG BID 09/02 1000 CAN PO Milnacipran HCl 25 MG DAILY 09/02 1000 AC 09/02 PO 1050 Multivitamins 1 TAB DAILY 09/02 1000 AC 09/02 Therapeutic PO 1050 Nebivolol 10 MG DAILY 09/02 1000 AC PO Oxycodone/ 1 TAB Q6P PRN 09/01 2315 AC Acetaminophen PO Sodium Chloride 1,000 ML SEE RATE 09/01 2315 DC IV 09/02 1234 Sodium Chloride 1,000 ML BOLUS ONE 09/01 1800 DC 09/01 IV 09/01 1959 1922 Trimethoprim/ 1 TAB ONCE ONE 09/01 1515 CAN Sulfamethoxazole PO 09/01 1516 Zolpidem Tartrate 5 MG AT BEDTIME 09/02 2200 DC PO Zolpidem Tartrate 0 .STK-MED ONE 09/02 0102 DC PO Zolpidem Tartrate 5 MG AT BEDTIME 09/02 0030 AC 09/02 PO 0058 Last 24 Hrs of Lab/Tio Results Last 24 Hrs of Labs/Mics: Laboratory Tests 09/02/16 0554: Anion Gap 9, Estimated GFR > 60, BUN/Creatinine Ratio 21.7, Hemoglobin A1c 7.8 H, Total Bilirubin 0.4, Direct Bilirubin 0.2, AST 26, ALT 62 H, Alkaline Phosphatase 129 H, Total Protein 5.4 L, Albumin 3.2 L, PT 13.0 H, INR 1.24 H, APTT 71 H, CBC w Diff NO MAN DIFF REQ, RBC 3.04 L, MCV 86.8, MCH 28.7, RDW 17.0 H, MPV 8.5, Gran % 69.6, Lymphocytes % 22.7, Monocytes % 4.9, Eosinophils % 2.5, Basophils % 0.3, Absolute Granulocytes 4.7, Absolute Lymphocytes 1.5, Absolute Monocytes 0.3, Absolute Eosinophils 0.2, Absolute Basophils 0, PUBS MCHC 33.1 09/01/16 2059: PT 13.3 H, INR 1.27 H, APTT 26 09/01/16 1630: Urine Color YEL, Urine Clarity HAZY H, Urine pH 5.5, Ur Specific Reading 1.025, Urine Protein 100 H, Urine Ketones NEG, Urine Nitrite NEG, Urine Bilirubin NEG, Urine Urobilinogen 0.2, Ur Leukocyte Esterase SMALL H, Ur Microscopic SEDIMENT EXAMINED, Urine RBC 15-25 H, Urine WBC 15-25 H, Ur Epithelial Cells FEW, Urine Bacteria FEW H, Hyaline Casts RARE H, Urine Mucus FEW, Urine Hemoglobin MOD H , Urine Glucose 250 H 09/01/16 1518: Anion Gap 12, Estimated GFR > 60, BUN/Creatinine Ratio 30.0 H, Glucose 223 H, Calcium 9.6, Total Bilirubin 0.6, Direct Bilirubin 0.3, AST 37 H, ALT 80 H, Alkaline Phosphatase 132 H, Troponin I 0.03, Total Protein 6.0 L, Albumin 3.7, CBC w Diff NO MAN DIFF REQ, RBC 3.11 L, MCV 86.6, MCH 29.0, RDW 17.1 H, MPV 8.6, Gran % 85.9 H, Lymphocytes % 11.2 L, Monocytes % 2.2, Eosinophils % 0.5, Basophils % 0.2, Absolute Granulocytes 7.1 H, Absolute Lymphocytes 0.9 L, Absolute Monocytes 0.2, Absolute Eosinophils 0, Absolute Basophils 0, PUBS MCHC 33.5 Microbiology 09/01 1630 URINE ROUT: Urine Culture - RES Lines/Diet/Fluids Lines: peripheral lines Restraints: none Assessment/Plan Assessment: 70-year-old with history of breast cancer recently diagnosed currently on chemotherapy presented to emergency department with shortness of breath on minimal exertion. Patient is admitted on telemetry so for the management of following problems Pulmonary embolism CAT scan showed small emboli within segmental and subsegmental branches of right upper, right lower and left lower lobes. Doppler ultrasound did not show any evidence of deep vein thrombosis in bilateral lower extremities. Patient is currently on IV heparin we will switch it to oral anticoagulation as suggested by hematology/oncology. Echocardiogram to rule out right heart strain pending Case discussed with rn case manager about novel oral anticoagulation medications if the insurance can cover these medications Once patient will be switched to by mouth anticoagulation patient will remain on that for at least 6 months. Patient is currently on IV heparin for DVT prophylaxis Patient is full code Patient is on heart healthy diet Patient is on pain pathway Problem List: 1. Breast cancer 2. Pulmonary embolism Pain Ratin Pain Location: NA Pain Goal: Pain 4 or less Pain Plan: Continue with current pain medications Tomorrow's Labs & Rationales: no labs needed DVT/Prophylaxis: pharmacological
--- NOTE | 2016-09-02 09:03 | NUR ---
IPOC UPDATED/MAINTAINED
--- NOTE | 2016-09-02 09:31 | NUR ---
PT GIVEN PERSONAL HYGIENE PRODUCTS WASHING UP AND BRUSHING TEETH - INDEPENDENTLY REMAINS WITHOUT ANY COMPLAINTS
--- NOTE | 2016-09-02 09:47 | PN- Att Addend ---
Attending Addendum Attending Brief Note Patient reports shortness of breath with minimal exertion. She does not have any other symptoms. General Appearance: Alert, No Acute Distress Skin: Grossly normal HEENT: PEERLA Neck: Supple, No JVD Cardiovascular: Regular Rate, Normal S1, Normal S2, No Murmurs Lungs: Clear to Auscultation, Normal Air Movement Abdomen: Normal Bowel Sounds, Soft, No Tenderness Neurological: Normal Speech, Strength at 5/5 X4 Ext, Cranial Nerves 3-12 NL, Reflexes 2+ Extremities: No Clubbing, No Cyanosis, No Edema Vascular: Normal Pulses Assessment 70-year-old with history of breast cancer recently diagnosed currently on chemotherapy with intervention to cure presenting with shortness of breath with minimal exertion. CAT scan suggested small emboli within segmental and subsegmental branches of right upper, right lower and left lower lobes. There is no CT findings of right heart strain. She is currently on IV antibiotics for UTI and urine cultures are negative. Plan Continue heparin drip Echocardiogram Discontinue IV antibiotics Check hemoglobin A1c Hold oral hypoglycemics and continue insulin sliding scale Continue other home medications Current Medications Sig/Estephania Start time Last Medication Dose Route Stop Time Status Admin Aspirin Buffered 81 MG DAILY 09/02 1000 AC PO Atorvastatin Calcium 20 MG 1700 09/02 1700 DC PO Atorvastatin Calcium 20 MG 1700 09/02 1700 AC PO Atorvastatin Calcium 20 MG ONCE ONE 09/02 0030 DC 09/02 PO 09/02 0031 0058 Ceftriaxone Sodium 1,000 MG 1800 09/02 1800 AC Sodium Chloride 100 ML IV Ceftriaxone Sodium 0 .STK-MED ONE 09/01 1936 DC .ROUTE Ceftriaxone Sodium 1,000 MG ONCE ONE 09/01 1800 DC 09/01 IV 09/01 1801 1939 Diclofenac Sodium 1 MIKAL 4 TIMES/DAY PRN 09/01 2330 AC TOP Escitalopram Oxalate 20 MG DAILY 09/02 1000 AC PO Heparin Sodium 0 .STK-MED ONE 09/01 2108 DC (Porcine) .ROUTE Heparin Sodium 5,000 UNIT .Q1M 09/01 2014 AC 09/01 (Porcine) IV PUSH 2115 N/A 1 UNIT Heparin Sodium 25,000 UNIT Q24H 09/01 2014 AC 09/01 (Porcine) IV 211 Sodium Chloride 500 ML Ibuprofen 600 MG Q6P PRN 09/01 2315 AC PO Insulin Aspart 0 TIDAC 09/02 0800 AC 09/02 SC 0844 Losartan Potassium 50 MG DAILY 09/02 1000 AC PO Losartan Potassium 50 MG ONCE ONE 09/02 0030 DC 09/02 PO 09/02 0031 0058 Metformin HCl 500 MG BID 09/02 1000 CAN PO Milnacipran HCl 25 MG DAILY 09/02 1000 AC PO Multivitamins 1 TAB DAILY 09/02 1000 AC Therapeutic PO Nebivolol 10 MG DAILY 09/02 1000 AC PO Oxycodone/ 1 TAB Q6P PRN 09/01 2315 AC Acetaminophen PO Sodium Chloride 1,000 ML SEE RATE 09/01 2315 AC IV 09/02 1234 Sodium Chloride 1,000 ML BOLUS ONE 09/01 1800 DC 09/01 IV 09/01 1959 1922 Trimethoprim/ 1 TAB ONCE ONE 09/01 1515 CAN Sulfamethoxazole PO 09/01 1516 Zolpidem Tartrate 5 MG AT BEDTIME 09/02 2200 DC PO Zolpidem Tartrate 0 .STK-MED ONE 09/02 0102 DC PO Zolpidem Tartrate 5 MG AT BEDTIME 09/02 0030 AC 09/02 PO 0058 Laboratory Tests 09/02 09/01 0554 2059 Chemistry Sodium (137 - 145 mmol/L) 138 Potassium (3.5 - 5.1 mmol/L) 4.0 Chloride (98 - 107 mmol/L) 104 Carbon Dioxide (22 - 30 mmol/L) 24 Anion Gap (5 - 16) 9 BUN (7 - 17 mg/dL) 13 Creatinine (0.5 - 1.0 mg/dL) 0.6 Estimated GFR (>60 ml/min) > 60 BUN/Creatinine Ratio (7 - 25 %) 21.7 Total Bilirubin (0.2 - 1.3 mg/dL) 0.4 Direct Bilirubin (< 0.4 mg/dL) 0.2 AST (14 - 36 U/L) 26 ALT (9 - 52 U/L) 62 H Alkaline Phosphatase (<127 U/L) 129 H Total Protein (6.3 - 8.2 g/dL) 5.4 L Albumin (3.5 - 5.0 g/dL) 3.2 L Coagulation PT (9.4 - 12.5 SEC) 13.0 H 13.3 H INR (0.90 - 1.19) 1.24 H 1.27 H APTT (25 - 37 SEC) 71 H 26 Hematology CBC w Diff NO MAN DIFF REQ WBC (4.8 - 10.8 /CUMM) 6.8 RBC (4.20 - 5.40 /CUMM) 3.04 L Hgb (12.0 - 16.0 G/DL) 8.7 L Hct (37 - 47 %) 26.3 L MCV (81.0 - 99.0 FL) 86.8 MCH (27.0 - 31.0 PG) 28.7 RDW (11.5 - 14.5 %) 17.0 H Plt Count (130 - 400 /CUMM) 340 MPV (7.4 - 10.4 FL) 8.5 Gran % (42.2 - 75.2 %) 69.6 Lymphocytes % (20.5 - 51.1 %) 22.7 Monocytes % (1.7 - 9.3 %) 4.9 Eosinophils % (0 - 5 %) 2.5 Basophils % (0.0 - 2.0 %) 0.3 Absolute Granulocytes (1.4 - 6.5 /CUMM) 4.7 Absolute Lymphocytes (1.2 - 3.4 /CUMM) 1.5 Absolute Monocytes (0.10 - 0.60 /CUMM) 0.3 Absolute Eosinophils (0.0 - 0.7 /CUMM) 0.2 Absolute Basophils (0.0 - 0.2 /CUMM) 0 PUBS MCHC (33.0 - 37.0 G/DL) 33.1 09/01 09/01 1630 1518 Chemistry Sodium (137 - 145 mmol/L) 134 L Potassium (3.5 - 5.1 mmol/L) 4.4 Chloride (98 - 107 mmol/L) 101 Carbon Dioxide (22 - 30 mmol/L) 21 L Anion Gap (5 - 16) 12 BUN (7 - 17 mg/dL) 18 H Creatinine (0.5 - 1.0 mg/dL) 0.6 Estimated GFR (>60 ml/min) > 60 BUN/Creatinine Ratio (7 - 25 %) 30.0 H Glucose (65 - 99 mg/dL) 223 H Calcium (8.4 - 10.2 mg/dL) 9.6 Total Bilirubin (0.2 - 1.3 mg/dL) 0.6 Direct Bilirubin (< 0.4 mg/dL) 0.3 AST (14 - 36 U/L) 37 H ALT (9 - 52 U/L) 80 H Alkaline Phosphatase (<127 U/L) 132 H Troponin I (< 0.11 ng/ml) 0.03 Total Protein (6.3 - 8.2 g/dL) 6.0 L Albumin (3.5 - 5.0 g/dL) 3.7 Hematology CBC w Diff NO MAN DIFF REQ WBC (4.8 - 10.8 /CUMM) 8.3 RBC (4.20 - 5.40 /CUMM) 3.11 L Hgb (12.0 - 16.0 G/DL) 9.0 L Hct (37 - 47 %) 27.0 L MCV (81.0 - 99.0 FL) 86.6 MCH (27.0 - 31.0 PG) 29.0 RDW (11.5 - 14.5 %) 17.1 H Plt Count (130 - 400 /CUMM) 334 MPV (7.4 - 10.4 FL) 8.6 Gran % (42.2 - 75.2 %) 85.9 H Lymphocytes % (20.5 - 51.1 %) 11.2 L Monocytes % (1.7 - 9.3 %) 2.2 Eosinophils % (0 - 5 %) 0.5 Basophils % (0.0 - 2.0 %) 0.2 Absolute Granulocytes (1.4 - 6.5 /CUMM) 7.1 H Absolute Lymphocytes (1.2 - 3.4 /CUMM) 0.9 L Absolute Monocytes (0.10 - 0.60 /CUMM) 0.2 Absolute Eosinophils (0.0 - 0.7 /CUMM) 0 Absolute Basophils (0.0 - 0.2 /CUMM) 0 PUBS MCHC (33.0 - 37.0 G/DL) 33.5 Urines Urine Color (YEL,AMB,STR) YEL Urine Clarity (CLEAR) HAZY H Urine pH (5.0 - 8.0) 5.5 Ur Specific [place] (1.001 - 1.035) 1.025 Urine Protein (NEG,<30 MG/DL) 100 H Urine Ketones (NEG) NEG Urine Nitrite (NEG) NEG Urine Bilirubin (NEG) NEG Urine Urobilinogen (0.1 - 1.0 EU/dl) 0.2 Ur Leukocyte Esterase (NEG) SMALL H Ur Microscopic SEDIMENT EXAMINED Urine RBC (0 - 5 /HPF) 15-25 H Urine WBC (0 - 2 /HPF) 15-25 H Ur Epithelial Cells (NONE,FEW) FEW Urine Bacteria (NEG/NONE) FEW H Hyaline Casts (0/LPF) RARE H Urine Mucus (FEW,NONE) FEW Urine Hemoglobin (NEG) MOD H Urine Glucose (N MG/DL) 250 H Vital Signs Date Time Temp Pulse Resp B/P B/P Pulse O2 O2 Flow FiO2 Mean Ox Delivery Rate 09/02 0850 98.8 111 18 130/82 99 Room Air 09/02 0832 98.8 111 18 130/82 99 09/02 0558 98.2 97 17 140/68 96 Room Air 09/02 0237 97.7 99 17 144/79 97 Room Air 09/02 0058 97.5 114 18 150/86 09/01 2328 97.5 114 18 150/86 95 Room Air Room Air 09/01 2048 97.6 104 18 135/64 98 Room Air Room Air 09/01 1642 100 18 132/64 97 Room Air 09/01 1357 97.5 106 20 116/78 100 Room Air
--- NOTE | 2016-09-02 09:47 | Admission Certification ---
Admission Certification Certification Statement - As attending physician, I certify that at the time of - admission, based on clinical presentation, severity of - symptoms, need for further diagnostic testing and - therapeutic interventions, and risk of adverse outcomes - without in-hospital treatment, in my clinical assessment, - this patient requires an acute hospital stay for a minimum - of two nights or longer. I have also considered psychsocial - factors such as support system, advanced age, financial - issues, cognitive issues, and failed out-patient treatments, - past re-admission history, safety of patient, and lack of - compliance as applicable. Specific rationale supporting this admission is: Acute PE
--- NOTE | 2016-09-02 09:51 | NUR ---
US AT BEDSIDE
--- NOTE | 2016-09-02 10:25 | Cons- Oncology ---
General Information and HPI Consulting Request Date of Consult: 09/02/16 Requested By: STEVE ZAMUDIO MD Reason for Consult: Breast cancer, pulmonary emboli Source of Information: patient Exam Limitations: no limitations History of Present Illness: Mr. Rubin is a 70-year-old female with stage IA HER2 postive breast cancer status partial mastectomy and AC chemotherapy and currently on paclitaxel and trastuzumab last on 08/27/2016 who presented to the hospital after found to have worsening shortness of breath with exertion. This symptoms started yesterday. She called the cancer center and was sent to the ED for evaluation. Over the past week, she has felt more fatigue and tired. She had left facial swelling but has improved. She denies any fever or chills. She has no nausea or vomiting. She denies any leg swelling. She still has some dysuria. In the ED, CTA was done and noted small emboli identified within segmental and subsegmental branches of the right upper, right lower and left lower lobes. She was also found to be in sinus tachycardia. She was started on heparin drip. She is feeling find right now. She denies any new symptoms. Allergies/Medications Allergies: Coded Allergies: No Known Allergies (06/08/16) Home Med List: Aspirin (Ecotrin*) 81 MG TABLET.DR 1 TAB PO DAILY PROPHO (Reported) Escitalopram Oxalate 20 MG TABLET 1 TAB PO DAILY ANXIETY / DEPRESSION ( Reported) Meloxicam 15 MG TABLET 1 TAB PO DAILY PAIN/INFLAMMATION (Reported) Metformin HCl 500 MG TABLET 1 TAB PO BID DM (Reported) Metformin HCl (Metformin HCl ER) 500 MG TAB.ER.24 1 TAB PO DAILY DM II ( Reported) Milnacipran HCl (Savella) 25 MG TABLET 1 TAB PO BID PAIN (Reported) Multivitamin (Daily Multiple Vitamin) 1 EACH TABLET 1 TAB PO DAILY PROPHO ( Reported) Nebivolol HCl (Bystolic) 10 MG TABLET 1 TAB PO DAILY BP (Reported) Simvastatin (Simvastatin*) 40 MG TABLET 1 TAB PO QPM CHOLESTEROL (Reported) Valsartan 160 MG TABLET 1 TAB PO DAILY HTN (Reported) Zolpidem Tartrate 5 MG TABLET 1 TAB PO QPMP INSOMNIA (Reported) Current Medications: Current Medications Sig/Estephania Start time Last Medication Dose Route Stop Time Status Admin Aspirin Buffered 81 MG DAILY 09/02 1000 AC PO Atorvastatin Calcium 20 MG 1700 09/02 1700 DC PO Atorvastatin Calcium 20 MG 1700 09/02 1700 AC PO Atorvastatin Calcium 20 MG ONCE ONE 09/02 0030 DC 09/02 PO 09/02 0031 0058 Ceftriaxone Sodium 1,000 MG 1800 09/02 1800 AC Sodium Chloride 100 ML IV Ceftriaxone Sodium 0 .STK-MED ONE 09/01 1936 DC .ROUTE Ceftriaxone Sodium 1,000 MG ONCE ONE 09/01 1800 DC 09/01 IV 09/01 1801 1939 Diclofenac Sodium 1 MIKAL 4 TIMES/DAY PRN 09/01 2330 AC TOP Escitalopram Oxalate 20 MG DAILY 09/02 1000 AC PO Heparin Sodium 0 .STK-MED ONE 09/01 2108 DC (Porcine) .ROUTE Heparin Sodium 5,000 UNIT .Q1M 09/01 2014 AC 09/01 (Porcine) IV PUSH 2115 N/A 1 UNIT Heparin Sodium 25,000 UNIT Q24H 09/01 2014 AC 09/01 (Porcine) IV 2115 Sodium Chloride 500 ML Ibuprofen 600 MG Q6P PRN 09/01 2315 AC PO Insulin Aspart 0 TIDAC 09/02 0800 AC SC Losartan Potassium 50 MG DAILY 09/02 1000 AC PO Losartan Potassium 50 MG ONCE ONE 09/02 0030 DC 09/02 PO 09/02 0031 0058 Metformin HCl 500 MG BID 09/02 1000 CAN PO Milnacipran HCl 25 MG DAILY 09/02 1000 AC PO Multivitamins 1 TAB DAILY 09/02 1000 AC Therapeutic PO Nebivolol 10 MG DAILY 09/02 1000 AC PO Oxycodone/ 1 TAB Q6P PRN 09/01 2315 AC Acetaminophen PO Sodium Chloride 1,000 ML SEE RATE 09/01 2315 AC IV 09/02 1234 Sodium Chloride 1,000 ML BOLUS ONE 09/01 1800 DC 09/01 IV 09/01 1959 1922 Trimethoprim/ 1 TAB ONCE ONE 09/01 1515 CAN Sulfamethoxazole PO 09/01 1516 Zolpidem Tartrate 5 MG AT BEDTIME 09/02 2200 DC PO Zolpidem Tartrate 0 .STK-MED ONE 09/02 0102 DC PO Zolpidem Tartrate 5 MG AT BEDTIME 09/02 0030 AC 09/02 PO 0058 Review of Systems Review of Systems Constitutional: Reports: malaise. Denies: chills, fever. Cardiovascular: Reports: palpitations. Denies: chest pain, peripheral edema. Respiratory: Denies: hemoptysis, short of breath. GI: Reports: nausea. Denies: abdominal pain. Genitourinary: Reports: dysuria. Musculoskeletal: Denies: back pain. Neurological/Psychological: Reports: anxiety. Hematologic/Endocrine: Denies: bruising, bleeding. All Other Systems: Reviewed and Negative Past History Travel History Traveled to [place] past 21 day No Medical History Neurological: NONE EENT: NONE Cardiovascular: NONE Respiratory: NONE Gastrointestinal: NONE Hepatic: NONE Renal: NONE Musculoskeletal: FIBROMYALGIA Psychiatric: NONE Endocrine: NONE Blood Disorders: NONE Cancer(s): breast cancer MANAGER MACHINE/Reproductive: NONE Surgical History Surgical History: non-contributory Family History Relations & Conditions If Any: Relation not specified for: FHx: uterine cancer Psychosocial History Where Do You Live? Home Smoking Status: Never Smoked ETOH Use: denies use Illicit Drug Use: denies illicit drug use Functional Ability ADLs Independent: dressing, eating, toileting, bathing. Ambulation: independent IADLs Independent: shopping, housework, finances, food prep, telephone, transportation , medication admin. Exam & Diagnostic Data Vital Signs and I&O Vital Signs Date Time Temp Pulse Resp B/P B/P Pulse O2 O2 Flow FiO2 Mean Ox Delivery Rate 09/02 0832 98.8 111 18 130/82 99 09/02 0558 98.2 97 17 140/68 96 Room Air 09/02 0237 97.7 99 17 144/79 97 Room Air 09/02 0058 97.5 114 18 150/86 09/01 2328 97.5 114 18 150/86 95 Room Air Room Air 09/01 2048 97.6 104 18 135/64 98 Room Air Room Air 09/01 1642 100 18 132/64 97 Room Air 09/01 1357 97.5 106 20 116/78 100 Room Air Intake & Output 09/02 1600 09/02 0800 09/02 0000 Intake Total 1000 Output Total 500 Balance -500 1000 Intake, IV 1000 Output, Urine 500 Patient 90.265 kg 90.265 kg Weight Weight Reported by Patient Reported by Patient Measurement Method Physical Exam General Appearance: no apparent distress, alert, awake Head: normal appearance Eyes: Bilateral: PERRL, EOMI. Respiratory: normal breath sounds, chest non-tender, no respiratory distress Cardiovascular: tachycardia Gastrointestinal: normal bowel sounds, soft, non-tender, no organomegaly Extremities: normal inspection, no edema Skin: intact Lymphatic: no anterior cervical kori Last 48 Hours of Lab Results: Laboratory Tests 09/02 09/01 0570 1707 Chemistry Sodium (137 - 145 mmol/L) 138 Potassium (3.5 - 5.1 mmol/L) 4.0 Chloride (98 - 107 mmol/L) 104 Carbon Dioxide (22 - 30 mmol/L) 24 Anion Gap (5 - 16) 9 BUN (7 - 17 mg/dL) 13 Creatinine (0.5 - 1.0 mg/dL) 0.6 Estimated GFR (>60 ml/min) > 60 BUN/Creatinine Ratio (7 - 25 %) 21.7 Total Bilirubin (0.2 - 1.3 mg/dL) 0.4 Direct Bilirubin (< 0.4 mg/dL) 0.2 AST (14 - 36 U/L) 26 ALT (9 - 52 U/L) 62 H Alkaline Phosphatase (<127 U/L) 129 H Total Protein (6.3 - 8.2 g/dL) 5.4 L Albumin (3.5 - 5.0 g/dL) 3.2 L Coagulation PT (9.4 - 12.5 SEC) 13.0 H 13.3 H INR (0.90 - 1.19) 1.24 H 1.27 H APTT (25 - 37 SEC) 71 H 26 Hematology CBC w Diff NO MAN DIFF REQ WBC (4.8 - 10.8 /CUMM) 6.8 RBC (4.20 - 5.40 /CUMM) 3.04 L Hgb (12.0 - 16.0 G/DL) 8.7 L Hct (37 - 47 %) 26.3 L MCV (81.0 - 99.0 FL) 86.8 MCH (27.0 - 31.0 PG) 28.7 RDW (11.5 - 14.5 %) 17.0 H Plt Count (130 - 400 /CUMM) 340 MPV (7.4 - 10.4 FL) 8.5 Gran % (42.2 - 75.2 %) 69.6 Lymphocytes % (20.5 - 51.1 %) 22.7 Monocytes % (1.7 - 9.3 %) 4.9 Eosinophils % (0 - 5 %) 2.5 Basophils % (0.0 - 2.0 %) 0.3 Absolute Granulocytes (1.4 - 6.5 /CUMM) 4.7 Absolute Lymphocytes (1.2 - 3.4 /CUMM) 1.5 Absolute Monocytes (0.10 - 0.60 /CUMM) 0.3 Absolute Eosinophils (0.0 - 0.7 /CUMM) 0.2 Absolute Basophils (0.0 - 0.2 /CUMM) 0 PUBS MCHC (33.0 - 37.0 G/DL) 33.1 09/01 09/01 1630 1518 Chemistry Sodium (137 - 145 mmol/L) 134 L Potassium (3.5 - 5.1 mmol/L) 4.4 Chloride (98 - 107 mmol/L) 101 Carbon Dioxide (22 - 30 mmol/L) 21 L Anion Gap (5 - 16) 12 BUN (7 - 17 mg/dL) 18 H Creatinine (0.5 - 1.0 mg/dL) 0.6 Estimated GFR (>60 ml/min) > 60 BUN/Creatinine Ratio (7 - 25 %) 30.0 H Glucose (65 - 99 mg/dL) 223 H Calcium (8.4 - 10.2 mg/dL) 9.6 Total Bilirubin (0.2 - 1.3 mg/dL) 0.6 Direct Bilirubin (< 0.4 mg/dL) 0.3 AST (14 - 36 U/L) 37 H ALT (9 - 52 U/L) 80 H Alkaline Phosphatase (<127 U/L) 132 H Troponin I (< 0.11 ng/ml) 0.03 Total Protein (6.3 - 8.2 g/dL) 6.0 L Albumin (3.5 - 5.0 g/dL) 3.7 Hematology CBC w Diff NO MAN DIFF REQ WBC (4.8 - 10.8 /CUMM) 8.3 RBC (4.20 - 5.40 /CUMM) 3.11 L Hgb (12.0 - 16.0 G/DL) 9.0 L Hct (37 - 47 %) 27.0 L MCV (81.0 - 99.0 FL) 86.6 MCH (27.0 - 31.0 PG) 29.0 RDW (11.5 - 14.5 %) 17.1 H Plt Count (130 - 400 /CUMM) 334 MPV (7.4 - 10.4 FL) 8.6 Gran % (42.2 - 75.2 %) 85.9 H Lymphocytes % (20.5 - 51.1 %) 11.2 L Monocytes % (1.7 - 9.3 %) 2.2 Eosinophils % (0 - 5 %) 0.5 Basophils % (0.0 - 2.0 %) 0.2 Absolute Granulocytes (1.4 - 6.5 /CUMM) 7.1 H Absolute Lymphocytes (1.2 - 3.4 /CUMM) 0.9 L Absolute Monocytes (0.10 - 0.60 /CUMM) 0.2 Absolute Eosinophils (0.0 - 0.7 /CUMM) 0 Absolute Basophils (0.0 - 0.2 /CUMM) 0 PUBS MCHC (33.0 - 37.0 G/DL) 33.5 Urines Urine Color (YEL,AMB,STR) YEL Urine Clarity (CLEAR) HAZY H Urine pH (5.0 - 8.0) 5.5 Ur Specific [place] (1.001 - 1.035) 1.025 Urine Protein (NEG,<30 MG/DL) 100 H Urine Ketones (NEG) NEG Urine Nitrite (NEG) NEG Urine Bilirubin (NEG) NEG Urine Urobilinogen (0.1 - 1.0 EU/dl) 0.2 Ur Leukocyte Esterase (NEG) SMALL H Ur Microscopic SEDIMENT EXAMINED Urine RBC (0 - 5 /HPF) 15-25 H Urine WBC (0 - 2 /HPF) 15-25 H Ur Epithelial Cells (NONE,FEW) FEW Urine Bacteria (NEG/NONE) FEW H Hyaline Casts (0/LPF) RARE H Urine Mucus (FEW,NONE) FEW Urine Hemoglobin (NEG) MOD H Urine Glucose (N MG/DL) 250 H Imaging/Other Studies: CTA chest 09/01/2016: 1. Adequate contrast opacification of the pulmonary arterial vasculature, with small emboli identified within segmental and subsegmental branches of the right upper, right lower and left lower lobes. Contrast is visualized within the hepatic veins as well as within the IVC. However, there is no dilatation of the right atrium and right ventricle and no straightening of the intraventricular septum to suggest right heart strain. 2. Redemonstrated is a soft tissue mass within the anterior mediastinum measuring 1.5 x 1.6 cm. This nodule does not appear significantly changed relative to a prior examination dated 11/22/2014. It may reflect residual thymic tissue although versus a prominent anterior mediastinal lymph node. This critical result was discussed with Dr. Tanmay Kidd at 8:02 PM on 2016 and it was ascertained that the content and urgency of the report was understood at the time of direct communication. Assessment/Plan Assessment: Ms. Rubin is 70-year-old with stage IA left breast cancer who presented to the hospital with shortness of breath and noted to have bilateral pulmonary emboli. She is currently getting paclitaxel with trastuzumab therapy. She is due for week 8 of 12 of her therapy. Mediastinum has a stable 1.5 x 1.6 cm nodule which has been unchanged since 2014. Given her cancer history and on active therapy, she is at risk for thrombosis. LMWH is usually the therapeutic choice for pulmonary emboli in patient with malignancy. It will be difficult for maintaining this for a long period as an outpatient. She does not like the idea of injection. NOAC is an option. She can be on any one of the NOAC pending coverage. She will need at least 6 months of therapy. She should have work up for DVT of the LE. She should have echocardiogram given tachycardia. Recommendations: 1. Check echocardiogram 2. Check lower extremity US 3. Start NOAC (dabigatran vs apixaban vs rivaroxaban) 4. Need at least 6 months of therapy Problem List: 1. Pulmonary embolism 2. Breast cancer Other Findings/Comments: Please [phone] with any questions/concerns. Consult Acknowledgment - Thank you for your consult request.
--- NOTE | 2016-09-02 10:32 | ULTRASOUND REPORT ---
EXAMINATION: US TRIPLEX OF LOWER EXTREMITIES, BILATERAL CLINICAL INFORMATION: Pulmonary embolism. Shortness of breath. COMPARISON: None TECHNIQUE: Color-flow triplex imaging with spectral analysis and compression Doppler were performed on the lower extremities. FINDINGS: Respiratory variation and normal compression are noted throughout the lower extremities. The visualized common femoral vein, superficial femoral vein, profunda femoral vein, popliteal vein and midcalf peroneal and posterior tibial venous segments show no evidence of deep venous thrombosis. There is no Otto's cyst. IMPRESSION: Normal triplex scan without evidence of deep venous thrombosis involving the lower extremities.
--- NOTE | 2016-09-02 10:49 | NUR ---
MED WITH PO DAILY MEDS PER MAR. PT REFUSING BYSTOLIC STATING SHE TAKES IT AT NIGHT. REMAINS WITHOUT ANY ADDITIONAL COMPLAINTS OR NEEDS.
--- NOTE | 2016-09-02 11:48 | NUR ---
09/02 CASE MGMT- SPOKE WITH DR Kirsty LEMUS REGARDING STARTING PT ON ELIQUIS AND WOULD LIKE TO SEE IF COVERED. CALL PLACED TO PHARMACY AND WILL NEED PRESCRIPTION AND INSURANCE CARD BROUGHT TO PHARMACY TO RUN INSURANCE AND SEE IF ANYTHING COVERED. CALL PLACED TO DR Kirsty LEMUS AWARE WILL NEED PRESCRIPTION FIRST. AWAITING PRESCRIPTION. CASE MGMT WILL CONTINUE TO FOLLOW.
--- NOTE | 2016-09-02 12:08 | NUR ---
SPOKE WITH ANIKA IN [facility]. LUNCH TO BE DELIVERED SHORTLY
--- NOTE | 2016-09-02 12:12 | NUR ---
MESSAGE LEFT IN ECHO FOR ETA OF TEST PT INFORMED OF SAME
--- NOTE | 2016-09-02 12:26 | NUR ---
FINGERSTICK 183 COVERED WITH 1UNIT PER SLIDING SCALE PT EATING LUNCH WITH NO COMPLAINTS
--- NOTE | 2016-09-02 14:23 | NUR ---
CONTINUES TO REST WITH NO COMPLAINTS. AWAITING ECHO AND DISPOSITION. REMAINS NORMAL SINUS/SINUS TACH WITH RATE LOW 100'S. HEPARIN CONTINUES TO INFUSE @ 26ML/HR.
[2016-09-02 14:36] VITALS: BP 113/76
--- NOTE | 2016-09-02 14:36 | NUR ---
PER REGINALD (X035) HE WILL BE DOWN IN TEN MINUTES TO WORK WITH CASE MANAGEMENT REGARDING PRESCRIPTION FOR ORAL ANTICOAGULANTS AND POSSIBLE D/C. PT INFORMED OF SAME. CONTINUES TO OFFER NO COMPLAINTS.
--- NOTE | 2016-09-02 14:46 | NUR ---
PT NOW MOST LIKELY NOT BEING D/LA NENA PER REGINALD. PT INFORMED. HOUSE STAFF TO COME TALK TO HER.
--- NOTE | 2016-09-02 14:49 | NUR ---
HOUSE STAFF AT THE BEDSIDE
--- NOTE | 2016-09-02 15:00 | NUR ---
PT HAS BED 144-15
--- NOTE | 2016-09-02 15:01 | NUR ---
09/02 CASE MGMT- PRESCRIPTIONS FROM DR ROBYN LEMUS BROUGHT TO [facility] TO SEE WHICH IS COVERED/ WHICH IS LESS EXPENSIVE FOR PT WELL YUE AN ELIQUIS $10 CO-PAY CARD. SPOKE WITH ОЛЬГА PHARMACIST AT [facility]. STATES PT WOULD HAVE A CO-PAY OF $20.00 UNLESS WE USED THE $10.00 CO-PAY CARD FROM ELIQUIS. ОЛЬГА HAS PRESCRIPTION FOR ELIQUIS AND AWARE WILL HAVE PT ACTIVATE CARD SOON POSSIBLE. 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 [place] AWARE WELL. PER DR ROBYN LEMUS PT WILL BE STARTING MEDICATION ELIQUIS TOMORROW.
--- NOTE | 2016-09-02 15:16 | NUR ---
REPORT GIVEN TO GÓMEZ SINGH
--- NOTE | 2016-09-02 15:51 | NUR ---
PATIENT A/O X'S 4. AMBULATES TO THE BR W/O DIFFICULTY. OFFERS NO C/O AT THIS TIME HEPARIN GTT CONTINUES AT 10MCG/MIN.
[2016-09-02 17:59] VITALS: BP 130/72
[2016-09-02 19:53] LABS: PTT 65 SEC (25-37)
--- NOTE | 2016-09-02 21:58 | ECHOCARDIOGRAM REPORT ---
NATALEE SWENSON Age: 70 : 1945 Gender: F Exam Date: 09/02/2016 19:53 Exam Location: [facility] Ht (in): 64 Wt (lb): 199 BSA: 2.06 BP: 140 / 68 Ordering Physician: ENE ARANA MD Referring Physician: ENE ARANA MD Technologist: Saritha Morton STANLEY Room Number: 171 Indications: ACUTE PULMONARY EMBOLISM Rhythm: Sinus Technical Quality: fair FINDINGS Left Ventricle Normal size left ventricle. Left ventricular wall thickness mildly increased. Borderline normal left ventricular ejection fraction estimated at 50-55%. Hypokinetic inferior wall. Right Ventricle Normal right ventricular size and function. Right Atrium Normal right atrial size. Left Atrium Moderate left atrial dilatation. Mitral Valve Mitral valve normal in structure and function. Moderate mitral regurgitation. Aortic Valve Aortic valve is normal in structure and function. Tricuspid Valve Tricuspid valve is normal in structure and function. Trace to mild tricuspid regurgitation. Right ventricular systolic pressure estimated to be within the normal range at 18 mmHg. Pulmonic Valve Pulmonic valve not well visualized, grossly normal. Pericardium No pericardial effusion. Great Vessels Normal size aortic root. CONCLUSIONS Borderline normal left ventricular systolic function with mild concentric hypertrophy.Suggestion of inferior wall hypokinesia. Moderate Mitral Regurgitation. Moderate Left atrial enlargement. No significant Pulmonary hypertension. Oleg Griffin M.D. (Electronically Signed) Final Date: 02 September 2016 21:58 MEASUREMENTS (Male / Female) Normal Values 2D ECHO LV Diastolic Diameter PLAX 5.1 cm 4.2 - 5.9 / 3.9 - 5.3 cm LV Systolic Diameter PLAX 3.8 cm 2.1 - 4.0 cm LV Fractional Shortening PLAX 25.5 % 25 - 46 % LV Ejection Fraction 2D Teich 50.0 % IVS Diastolic Thickness 1.3 cm LVPW Diastolic Thickness 1.3 cm LV Relative Wall Thickness 0.5 RV Internal Dim ED PLAX 2.6 cm 1.9 - 3.8 cm LVOT Diameter 1.9 cm Aortic Root Diameter 2.5 cm LA Systolic Diameter LX 5.0 cm 3.0 - 4.0 / 2.7 - 3.8 cm LA Volume 59.0 cm 18 - 58 / 22 - 52 cm Ascending Aorta Diameter 3.0 cm DOPPLER AV Peak Velocity 169.0 cm/s AV Peak Gradient 11.4 mmHg AV Mean Velocity 105.0 cm/s AV Mean Gradient 5.0 mmHg AV Velocity Time Integral 25.8 cm LVOT Peak Velocity 114.0 cm/s LVOT Peak Gradient 5.2 mmHg LVOT Mean Velocity 78.6 cm/s LVOT Mean Gradient 3.0 mmHg LVOT Velocity Time Integral 20.2 cm LVOT Stroke Volume 57.3 cm AV Area Cont Eq vti 2.2 cm AV Area Cont Eq pk 1.9 cm MV Peak Velocity 134.0 cm/s MV Peak Gradient 7.2 mmHg MV Mean Velocity 73.0 cm/s MV Mean Gradient 3.0 mmHg Mitral E Point Velocity 115.0 cm/s Mitral A Point Velocity 115.0 cm/s Mitral E to A Ratio 1.0 MV PHT Velocity 136.0 cm/s MV Deceleration [place] 562.0 cm/s MV Pressure Half Time 72.6 ms MV Area PHT 3.0 cm MV Deceleration Time 206.0 ms TR Peak Velocity 134.0 cm/s TR Peak Gradient 7.2 mmHg Right Atrial Pressure 10.0 mmHg Pulmonary Artery Systolic Pressu 17.2 mmHg Right Ventricular Systolic Press 17.2 mmHg PV Peak Velocity 112.0 cm/s PV Peak Gradient 5.0 mmHg PV Mean Velocity 74.7 cm/s PV Mean Gradient 3.0 mmHg PV Velocity Time Integral 19.9 cm LV E' Lateral Velocity 7.3 cm/s Mitral E to LV E' Lateral Ratio 15.7 LV E' Septal Velocity 5.8 cm/s Mitral E to LV E' Septal Ratio 20.0
[2016-09-02 23:00] VITALS: BP 124/88
--- NOTE | 2016-09-03 07:39 | PN- Housestaff ---
Subjective Follow-up For: Pulmonary embolism Complaints: no complaints Subjective: No active complaints Review of Systems Constitutional: Denies: chills, fever. EENTM: Denies: visual changes. Cardiovascular: Denies: chest pain, palpitations. Respiratory: Denies: cough, short of breath. Gastrointestinal: Denies: abdominal pain. Objective Last 24 Hrs of Vital Signs/I&O Vital Signs Date Time Temp Pulse Resp B/P B/P Pulse O2 O2 Flow FiO2 Mean Ox Delivery Rate 09/03 1011 124/80 09/03 0826 98.3 97 16 118/82 97 Room Air 09/02 2300 98.2 112 18 124/88 95 Room Air 09/02 2227 112 124/88 09/02 2153 Room Air Room Air 09/02 1759 98.6 108 18 130/72 99 Room Air 09/02 1436 97.9 111 18 113/76 96 Room Air 09/02 1435 97.9 111 18 113/76 96 Room Air Intake & Output 09/03 1600 09/03 0800 09/03 0000 Intake Total 448 704 Output Total Balance 448 704 Intake, IV 208 104 Intake, Oral 240 600 Patient 195 lb Weight Weight Standing Scale Measurement Method Physical Exam General Appearance: Alert, Oriented X3, Cooperative, No Acute Distress HEENT: Atraumatic Neck: Supple, No JVD Cardiovascular: Regular Rate, Normal S1, Normal S2 Lungs: Clear to Auscultation, Normal Air Movement Abdomen: Normal Bowel Sounds, Soft, No Tenderness Neurological: Normal Speech, Normal Tone, Sensation Intact Extremities: No Clubbing, No Cyanosis, No Edema Vascular: Normal Pulses Current Medications: Current Medications Sig/Estephania Start time Last Medication Dose Route Stop Time Status Admin Apixaban 10 MG BID 09/03 1039 AC 09/03 PO 1120 Aspirin Buffered 81 MG DAILY 09/02 1000 AC 09/03 PO 1010 Atorvastatin Calcium 20 MG 1700 09/02 1700 AC 09/02 PO 2227 Diclofenac Sodium 1 MIKAL 4 TIMES/DAY PRN 09/01 2330 AC TOP Escitalopram Oxalate 20 MG DAILY 09/02 1000 AC 09/03 PO 1010 Heparin Sodium 5,000 UNIT .Q1M 09/01 2014 AC 09/01 (Porcine) IV PUSH 2115 N/A 1 UNIT Heparin Sodium 25,000 UNIT Q24H 09/01 2014 AC 09/01 (Porcine) IV 2115 Sodium Chloride 500 ML Ibuprofen 600 MG Q6P PRN 09/01 2315 AC 09/03 PO 1154 Insulin Aspart 0 TIDAC 09/02 0800 AC 09/03 SC 0912 Losartan Potassium 50 MG DAILY 09/02 1000 AC 09/03 PO 1011 Milnacipran HCl 25 MG DAILY 09/02 1000 AC 09/03 PO 1010 Multivitamins 1 TAB DAILY 09/02 1000 AC 09/03 Therapeutic PO 1010 Nebivolol 10 MG AT BEDTIME 09/02 2200 AC 09/02 PO 2227 Nebivolol 10 MG DAILY 09/02 1000 DC PO Oxycodone/ 1 TAB Q6P PRN 09/01 2315 AC Acetaminophen PO Zolpidem Tartrate 5 MG AT BEDTIME 09/02 0030 AC 09/02 PO 2227 Last 24 Hrs of Lab/Tio Results Last 24 Hrs of Labs/Mics: Laboratory Tests 09/03/16 0736: APTT 70 H 09/02/16 1830: APTT 65 H Lines/Diet/Fluids Restraints: none Assessment/Plan Assessment: 70-year-old with history of breast cancer recently diagnosed currently on chemotherapy presented to emergency department with shortness of breath on minimal exertion. Patient is admitted on telemetry so for the management of following problems Pulmonary embolism CAT scan showed small emboli within segmental and subsegmental branches of right upper, right lower and left lower lobes. Doppler ultrasound did not show any evidence of deep vein thrombosis in bilateral lower extremities. Patient is currently on IV heparin we will switch it to oral anticoagulation as suggested by hematology/oncology. Echocardiogram to rule out right heart strain done and showed Normal size left ventricle. Left ventricular wall thickness mildly increased. Borderline normal left ventricular ejection fraction estimated at 50-55%. Hypokinetic inferior wall. Oral anticoagulation medications eliquis approved Eliquis 10 mg twice daily for 7 days followed by 5 mg twice daily for 6 months Once patient will be switched to by mouth anticoagulation patient will remain on that for at least 6 months. Patient is currently on IV heparin for DVT prophylaxis Patient is full code Patient is on heart healthy diet Patient is on pain pathway Problem List: 1. Pulmonary embolism Pain Ratin Pain Location: NA Pain Goal: Pain 4 or less Pain Plan: continue with current pain medications Tomorrow's Labs & Rationales: None
--- NOTE | 2016-09-03 08:08 | PN- Oncology ---
Subjective Subjective: She is doing about the same. She has not ambulated much. She has no fever or chills. She has no bleeding issue with the heparin. She had US of the LE and echocardiogram done yesterday. Review of Systems Constitutional: Reports: malaise. Denies: chills, fever. Cardiovascular: Denies: chest pain. Respiratory: Reports: short of breath. Denies: hemoptysis. Gastrointestinal: Denies: abdominal pain. Hematologic/Endocrine: Reports: bruising. Denies: bleeding. All Other Systems: Reviewed and Negative Objective Vital Signs and I&Os Vital Signs Date Time Temp Pulse Resp B/P B/P Pulse O2 O2 Flow FiO2 Mean Ox Delivery Rate 09/02 2300 98.2 112 18 124/88 95 Room Air 09/02 2227 112 124/88 09/02 2153 Room Air Room Air 09/02 1759 98.6 108 18 130/72 99 Room Air 09/02 1436 97.9 111 18 113/76 96 Room Air 09/02 1435 97.9 111 18 113/76 96 Room Air 09/02 1050 98.8 108 16 131/75 09/02 1049 98.8 108 16 131/75 09/02 0850 98.8 111 18 130/82 99 Room Air 09/02 0832 98.8 111 18 130/82 99 Intake & Output 09/03 1600 09/03 0800 15 0000 09/02 1600 09/02 0800 09/02 0000 Intake Total 448 690 73 8951 Output Total 500 Balance 448 704 26 -500 1000 Intake, IV 208 768 93 9694 Intake, Oral 240 600 Output, Urine 500 Patient 88.451 kg 90.265 kg 90.265 kg Weight Weight Standing Scale Reported by Patient Reported by Patient Measurement Method Physical Exam: General Appearance: no apparent distress, alert, awake Respiratory: normal breath sounds, chest non-tender, no respiratory distress Cardiovascular: tachycardia Gastrointestinal: normal bowel sounds, soft, non-tender, no organomegaly Extremities: normal inspection, no edema Skin: intact Current Medications: Current Medications Sig/Estephania Start time Last Medication Dose Route Stop Time Status Admin Aspirin Buffered 81 MG DAILY 09/02 1000 AC 09/02 PO 1050 Atorvastatin Calcium 20 MG 1700 09/02 1700 AC 09/02 PO 2227 Ceftriaxone Sodium 1,000 MG 1800 09/02 1800 CAN Sodium Chloride 100 ML IV Diclofenac Sodium 1 MIKAL 4 TIMES/DAY PRN 09/01 2330 AC TOP Escitalopram Oxalate 20 MG DAILY 09/02 1000 AC 09/02 PO 1050 Heparin Sodium 5,000 UNIT .Q1M 09/01 2014 AC 09/01 (Porcine) IV PUSH 2115 N/A 1 UNIT Heparin Sodium 25,000 UNIT Q24H 09/01 2014 AC 09/01 (Porcine) IV 2115 Sodium Chloride 500 ML Ibuprofen 600 MG Q6P PRN 09/01 2315 AC PO Insulin Aspart 0 TIDAC 09/02 0800 AC 09/02 SC 1706 Losartan Potassium 50 MG DAILY 09/02 1000 AC 09/02 PO 1050 Milnacipran HCl 25 MG DAILY 09/02 1000 AC 09/02 PO 1050 Multivitamins 1 TAB DAILY 09/02 1000 AC 09/02 Therapeutic PO 1050 Nebivolol 10 MG AT BEDTIME 09/02 2200 AC 09/02 PO 2227 Nebivolol 10 MG DAILY 09/02 1000 DC PO Oxycodone/ 1 TAB Q6P PRN 09/01 2315 AC Acetaminophen PO Sodium Chloride 1,000 ML SEE RATE 09/01 2315 DC IV 09/02 1234 Zolpidem Tartrate 5 MG AT BEDTIME 09/02 0030 AC 09/02 PO 2227 Results Last 24 Hours of Lab Results: Laboratory Tests 09/03 09/02 0736 1830 Coagulation APTT (25 - 37 SEC) Pending 65 H Recent Imaging Studies: Echocardiogram 09/02/2016: Borderline normal left ventricular systolic function (50-55%) with mild concentric hypertrophy.Suggestion of inferior wall hypokinesia. Moderate Mitral Regurgitation. Moderate Left atrial enlargement. No significant Pulmonary hypertension. Venous doppler study 09/02/2016: Normal triplex scan without evidence of deep venous thrombosis involving the lower extremities. Assessment/Plan Assessment/Recommendations: Ms. Rubin is 70-year-old with stage IA left breast cancer who presented to the hospital with shortness of breath and noted to have bilateral pulmonary emboli. She is currently getting paclitaxel with trastuzumab therapy weekly. She is due for week 8 of 12 of her therapy. Mediastinum has a stable 1.5 x 1.6 cm nodule which has been unchanged since 2014. Her insurance will cover apixaban. She will be started on this on discharge. She is doing well. She will need to ambulate to check if she requires oxygen with exertion. Echocardiogram is slightly decreased which may be related to pulmonary embolism versus trastuzumab. She will likely need repeat one in the next 1-2 months. Recommendations: 1. Follow up in 1 week for chemotherapy 2. Start NOAC: apixaban 3. Evaluate oxygen saturation with exertion 4. will need at least 6 months of therapy Please call [phone] with any questions or concerns Problem List: 1. Pulmonary embolism 2. Breast cancer
[2016-09-03 08:26] VITALS: BP 118/82
--- NOTE | 2016-09-03 09:16 | PN- Att Addend ---
Attending Addendum Attending Brief Note Patient remains asymptomatic at rest. She is not requiring oxygen. General Appearance: Alert, No Acute Distress Skin: Grossly normal HEENT: [place] Neck: Supple, No JVD Cardiovascular: Regular Rate, Normal S1, Normal S2, No Murmurs Lungs: Clear to Auscultation, Normal Air Movement Abdomen: Normal Bowel Sounds, Soft, No Tenderness Neurological: Normal Speech, Strength at 5/5 X4 Ext, Cranial Nerves 3-12 NL, Reflexes 2+ Extremities: No Clubbing, No Cyanosis, No Edema Vascular: Normal Pulses Assessment 70-year-old with history of breast cancer recently diagnosed currently on chemotherapy with intention to cure presenting with shortness of breath with minimal exertion. CAT scan suggested small emboli within segmental and subsegmental branches of right upper, right lower and left lower lobes. Echocardiogram suggested inferior wall hypokinesia with mild ejection fraction. We must rule out ischemic causes although it's possible it could be secondary to chemotherapy and very less likely PE. We'll involve cardiology. Hemoglobin A1c 7.8. Plan Cardiology evaluation Ambulate patient and check oxygen saturation Transition to [facility] We'll increase metformin to 1000 mg twice daily upon discharge continue insulin sliding scale Continue other home medications Current Medications Sig/Estephania Start time Last Medication Dose Route Stop Time Status Admin Aspirin Buffered 81 MG DAILY 09/02 1000 AC 09/02 PO 1050 Atorvastatin Calcium 20 MG 1700 09/02 1700 AC 09/02 PO 2227 Ceftriaxone Sodium 1,000 MG 1800 09/02 1800 CAN Sodium Chloride 100 ML IV Diclofenac Sodium 1 MIKAL 4 TIMES/DAY PRN 09/01 2330 AC TOP Escitalopram Oxalate 20 MG DAILY 09/02 1000 AC 09/02 PO 1050 Heparin Sodium 5,000 UNIT .Q1M 09/01 (Porcine) IV PUSH 2115 N/A 1 UNIT Heparin Sodium 25,000 UNIT Q24H 09/01 (Porcine) IV 2115 Sodium Chloride 500 ML Ibuprofen 600 MG Q6P PRN 09/01 2315 AC PO Insulin Aspart 0 TIDAC 09/02 0800 AC 09/03 SC 0912 Losartan Potassium 50 MG DAILY 09/02 1000 AC 09/02 PO 1050 Milnacipran HCl 25 MG DAILY 09/02 1000 AC 09/02 PO 1050 Multivitamins 1 TAB DAILY 09/02 1000 AC 09/02 Therapeutic PO 1050 Nebivolol 10 MG AT BEDTIME 09/02 2200 AC 09/02 PO 2227 Nebivolol 10 MG DAILY 09/02 1000 DC PO Oxycodone/ 1 TAB Q6P PRN 09/01 2315 AC Acetaminophen PO Sodium Chloride 1,000 ML SEE RATE 09/01 2315 DC IV 09/02 1234 Zolpidem Tartrate 5 MG AT BEDTIME 09/02 0030 AC 09/02 PO 2227 Laboratory Tests 09/03 09/02 0736 1830 Coagulation APTT (25 - 37 SEC) Pending 65 H Vital Signs Date Time Temp Pulse Resp B/P B/P Pulse O2 O2 Flow FiO2 Mean Ox Delivery Rate 09/03 0826 98.3 97 16 118/82 97 Room Air 09/02 2300 98.2 112 18 124/88 95 Room Air 09/02 2227 112 124/88 09/02 2153 Room Air Room Air 09/02 1759 98.6 108 18 130/72 99 Room Air 09/02 1436 97.9 111 18 113/76 96 Room Air 09/02 1435 97.9 111 18 113/76 96 Room Air 09/02 1050 98.8 108 16 131/75 09/02 1049 98.8 108 16 131/75
[2016-09-03 09:25] LABS: PTT 70 SEC (25-37)
--- NOTE | 2016-09-03 10:08 | Patient Discharge Instructions ---
Discharge Instructions General Discharge Information You were seen/treated for: pulmonary embolism Special Instructions: Follow-up primary care doctor in a week after discharge. Follow-up with Oncologist, ELISE RIVERA MD on after discharge Follow-up with cargo inspector Dr. Oleg Leblanc in a week after discharge Diet Continue normal diet: Yes Acute Coronary Syndrome Inclusion Criteria At DC or during hospital stay patient has or had the following: ACS DIAGNOSIS No Discharge Core Measures Meds if any: Prescribed or Continued at Discharge Meds if any: NOT Prescribed or Continued at Discharge Congestive Heart Failure Inclusion Criteria At DC or during hospital stay patient has or had the following: CHF DIAGNOSIS No Discharge Core Measures Meds if any: Prescribed or Continued at Discharge Meds if any: NOT Prescribed or Continued at Discharge Cerebrovascular accident Inclusion Criteria At DC or during hospital stay patient has or had the following: CVA/TIA Diagnosis No Discharge Core Measures Meds if any: Prescribed or Continued at Discharge Meds if any: NOT Prescribed or Continued at Discharge Venous thromboembolism Inclusion Criteria VTE Diagnosis No VTE Type NONE VTE Confirmed by (Test) NONE Discharge Core Measures - Per Current guidelines, there needs to be overlap - treatment for the first 5 days of Warfarin therapy. - If discharged on Warfarin prior to 5 days of - overlap therapy, the patient will need to be - assessed for post discharge needs including - *Post discharge parental anticoagulation - *Warfarin and/or parental anticoagulation education - *Follow up date to check INR post discharge At least 5 days overlap therapy as Inpatient No Meds if any: Prescribed or Continued at Discharge Note: Overlap Therapy is Warfarin and Anticoagulant Meds if any: NOT Prescribed or Continued at Discharge
[2016-09-03 10:11] VITALS: BP 124/80
[2016-09-03] MEDS ORDERED: ELIQUIS5 M2 PO ×4 (10:15→12:09)
[2016-09-03] MEDS ORDERED: ELIQUIS5 M1 PO ×4 (10:17→12:51)
[2016-09-03] MEDS ORDERED: METFORMIN HCL1000 M1 PO ×2 (10:41→10:44)
== END 2016-09-03 14:17 | DRG 176 ==
LOC: ERH 13:52 → 1NO 20:31 → ERHI 20:31 → ENRESERV 09-02 14:34 → ENTRNSPT 09-02 17:18 → 1NO 09-02 17:48 → CMPTRNSPT 09-02 18:11 → 1NO 09-03 07:43 → ENPENDDIS 09-03 10:39 → 1NO 09-03 14:17
PROVIDERS: Internal Medicine Hematology & Oncology; Student in an Organized Health Care Education/Training Program; ADMIT Internal Medicine
DX: I26.99 Other pulmonary embolism without acute cor pulmonale (principal); I10 Essential (primary) hypertension; E11.9 Type 2 diabetes mellitus without complications; M79.7 Fibromyalgia; Z85.3 Personal history of malignant neoplasm of breast
CPT/HCPCS: 1NP; ERO; 36415; 81001; 82436; 87086; 93005; 93010; 93306; 93970; 96374; J0696; J1644

== ENCOUNTER 2016-09-10 10:16 | Inpatient (IN) | payer OTHER ==
[~2016-09-10] VITALS: Ht 162.6 cm; Wt 88.7 kg
[~2016-09-10 10:16] MED LIST changes: +BYSTOLIC10 M1 PO; +ELIQUIS5 M1 PO; +ELIQUIS5 M2 PO; +MELOXICAM15 M1 PO; +METFORMIN HCL1000 M1 PO; +METFORMIN HCL500 M3 PO; +SAVELLA PO
--- NOTE | 2016-09-10 10:22 | NUR ---
PT [facility]. STATES SHE WAS RECENTLY DX WITH BREAST CANCER. WAS ADMITTED FOR PE RECENTLY WELL. PT WAS SUPPOSED TO HAVE CHEMO TODAY BUT WAS UNABLE TO PERFORM. PT HAS INCREASED SOB, ARRIVED 100% ON RA, DESATTED TO 90% WHILE SPEAKING WITH PHYSICIAN. REPORTED THAT SHE WAS TACHY AND PRESYNCOPAL FROM [facility]. ALSO THAT PT HAS NEW LEG SWELLING AND HEMATURIA. IS CURRENTLY ON ELIQUIS. DR ARANGO TO EVAL. NSR ON CM. PORT IS ACCESSED FROM [facility].
--- NOTE | 2016-09-10 10:28 | NUR ---
MD NBA CUEVASAL
--- NOTE | 2016-09-10 10:37 | ED GENERAL ADULT ---
History of Present Illness General Chief Complaint: General Adult Stated Complaint: [facility]A FROM [facility] - SOB, R/O PE Source: patient, old records, EMS, PCP Exam Limitations: no limitations Vital Signs & Intake/Output Vital Signs & Intake/Output Vital Signs Date Time Temp Pulse Resp B/P B/P Pulse O2 O2 Flow FiO2 Mean Ox Delivery Rate 09/10 1513 94 Room Air 09/10 1319 97.7 98 18 134/63 98 09/10 1020 97.3 109 18 180/82 99 Room Air Allergies Coded Allergies: No Known Allergies (06/08/16) Reconcile Medications Apixaban (Eliquis) 5 MG TABLET 2 TAB PO BID PE . Apixaban (Eliquis) 5 MG TABLET 1 TAB PO BID PE .START THIS MEDICATION ON 09/10/16 Aspirin (Ecotrin*) 81 MG TABLET.DR 1 TAB PO DAILY heart health (Reported) Escitalopram Oxalate 20 MG TABLET 1 TAB PO DAILY ANXIETY / DEPRESSION ( Reported) Meloxicam 15 MG TABLET 1 TAB PO DAILY PAIN/INFLAMMATION (Reported) Metformin HCl 1,000 MG TABLET 1 TAB PO BID DM . Milnacipran HCl (Savella) 25 MG TABLET 1 TAB PO BID PAIN (Reported) Multivitamin (Daily Multiple Vitamin) 1 EACH TABLET 1 TAB PO DAILY supplement (Reported) Nebivolol HCl (Bystolic) 10 MG TABLET 1 TAB PO DAILY BP (Reported) Simvastatin (Simvastatin*) 40 MG TABLET 1 TAB PO QPM CHOLESTEROL (Reported) Valsartan 160 MG TABLET 1 TAB PO DAILY HTN (Reported) Zolpidem Tartrate 5 MG TABLET 1 TAB PO QPMP INSOMNIA (Reported) Triage Nurses Notes Reviewed? yes HPI: PT SENT OVER FROM THE [facility] FOR EVALUATION OF INCREASING AMADOR. PT ADMITTED 2 WEEKS AGO FOR A PE AND HAS BEEN ON XARELTO SINCE. SINCE LAST WEEK SHE HAS HAD INCREASING AMADOR TO THE POINT THAT SHE CAN'T WALK ACROSS THE ROOM WITHOUT HAVING TO STOP. SHE DENIES ANY ORTHOPNEA. SHE DENIES ANY CHEST PAIN OR PALPITATIONS. HER RA AMBULATORY SAT WAS 91% AT HER DOCTOR'S OFFICE TODAY. Past History Travel History Traveled to [place] past 21 day No Medical History Any Pertinent Medical History? 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 No Review of Systems Review of Systems Constitutional: Reports: no symptoms. EENTM: Reports: no symptoms. Respiratory: Reports: see HPI, short of breath. Cardiovascular: Reports: no symptoms. GI: Reports: no symptoms. Genitourinary: Reports: no symptoms. Musculoskeletal: Reports: no symptoms. Skin: Reports: no symptoms. Neurological/Psychological: Reports: no symptoms. Hematologic/Endocrine: Reports: no symptoms. Immunologic/Allergic: Reports: no symptoms. All Other Systems: Reviewed and Negative Physical Exam Physical Exam General Appearance: well developed/nourished, alert, awake, anxious, severe distress Head: atraumatic, normal appearance Eyes: Bilateral: PERRL, EOMI. Ears, Nose, Throat: normal pharynx, normal ENT inspection, hearing grossly normal Neck: normal inspection, supple, full range of motion Respiratory: normal breath sounds, chest non-tender, lungs clear, respiratory distress Cardiovascular: regular rate/rhythm, normal peripheral pulses Gastrointestinal: normal bowel sounds, soft, non-tender, no organomegaly Back: normal inspection, normal range of motion Extremities: normal inspection, normal capillary refill, normal range of motion, no edema Neurologic/Psych: no motor/sensory deficits, awake, alert, oriented x 3, normal mood/affect Skin: intact, normal color, warm/dry Lymphatic: no anterior cervical kori Core Measures ACS in differential dx? Yes CVA/TIA Diagnosis: No Severe Sepsis Present: No Septic Shock Present: No Progress Differential Diagnoses I considered the following diagnoses in my evaluation of the patient: [WORSENING PE, HEART STRAIN, ANEMIA] Plan of Care: Orders Procedure Date/time Status Add-on Test (ER Only) 09/10 1513 Active B-TYPE NATRIURETIC PEP (BNP) 09/10 1044 Active Telemetry/Refrigeration Houseman 09/10 1036 Active URINALYSIS 09/10 1036 Active TROPONIN LEVEL 09/10 1036 Active COMPREHENSIVE METABOLIC PANEL 09/10 1036 Active CBC WITHOUT DIFFERENTIAL 09/10 1036 Complete TYPE & SCREEN (NOT X-MATCH) 09/10 1036 Complete EKG 09/10 1020 Active Current Medications Sig/Estephania Start time Last Medication Dose Stop Time Status Admin Furosemide 40 MG ONCE ONE 09/10 1515 UNVr (Lasix) 09/10 1516 Laboratory Tests 09/10/16 1044: Anion Gap 11, Estimated GFR > 60, BUN/Creatinine Ratio 25.0, Glucose 207 H, Calcium 9.6, Total Bilirubin 0.7, AST 46 H, ALT 96 H, Alkaline Phosphatase 201 H, Troponin I 0.02, Asq-D-Uhqrehfrsvj Pept Pending, Total Protein 5.7 L, Albumin 3.7, Globulin 2.0, Albumin/Globulin Ratio 1.9, CBC w Diff NO MAN DIFF REQ, RBC 3.16 L, MCV 87.6, MCH 28.9, RDW 18.4 H, MPV 8.7, Gran % 62.5, Lymphocytes % 28.2, Monocytes % 7.3, Eosinophils % 1.7, Basophils % 0.3, Absolute Granulocytes 5.1, Absolute Lymphocytes 2.3, Absolute Monocytes 0.6, Absolute Eosinophils 0.1, Absolute Basophils 0, PUBS MCHC 33.0 Diagnostic Imaging: Viewed by Me: CT Scan. Discussed w/RAD: CT Scan. Radiology Impression: PATIENT: NATALEE SWENSON PRESENT AGE: 70 PATIENT ACCOUNT NO: [id number] : 46 LOCATION: [facility] ORDERING PHYSICIAN: KIM ARANGO MD SERVICE DATE: 09/10/16 EXAM TYPE: CAT - CTA CHEST-PULMONARY EMBOLISM EXAMINATION: CT ANGIOGRAM CHEST WITHOUT AND WITH CONTRAST (CT PULMONARY ANGIOGRAM FOR PE) CLINICAL INFORMATION: Known small pulmonary emboli, increased shortness of breath and dyspnea on exertion. COMPARISON: CTA chest 09/01/2016. TECHNIQUE: Prior to contrast administration, noncontrast localization images were obtained. Subsequently, multidetector volumetric imaging was performed from the thoracic inlet to below the diaphragms following the administration of 95 mL Optiray 350 intravenous contrast. No contrast reaction reported. Sagittal, coronal, and MIP oblique sagittal reformatted images were obtained on the CT workstation, uploaded to PACS, and reviewed. TOTAL EXAM DLP: 439.25 mGy-cm. FINDINGS: QUALITY OF STUDY/CONTRAST BOLUS: Satisfactory PULMONARY ARTERIES: There are residual small filling defects within the right lower lobe segmental and subsegmental pulmonary arteries and in the left lower lobe segmental pulmonary arteries. The appearance is not significantly changed compared with the prior exam; no increasing or new filling defects are identified. THORACIC AORTA: No aneurysm or dissection. LUNG: Patchy areas of ground-glass opacity in both lungs may reflect a combination of mild edema and atelectasis. PLEURA: New small bilateral pleural effusions. MEDIASTINUM: Normal heart size. No pericardial effusion. The 1.6 x 1.5 cm anterior mediastinal soft tissue nodule (2, 124/434) is unchanged from prior exams. No evidence of septal bowing or right heart strain. CHEST WALL/AXILLA: No axillary lymphadenopathy. Surgical clips in the left breast. There is a right chest port in place. OSSEOUS STRUCTURES: No acute or suspicious osseous abnormality. UPPER ABDOMEN: Unremarkable. There is reflux of contrast into the hepatic veins. This is similar to the prior exam. There are no signs of right heart strain. The right atrium and right ventricle are not dilated. No septal bowing is identified. IMPRESSION: 1. Residual bilateral lower lobe pulmonary emboli, not significantly changed compared with the prior exam. While there is contrast visualized within the hepatic veins and IVC, there is no septal bowing or signs of right heart strain. 2. Unchanged soft tissue nodule in the anterior mediastinum measuring 1.6 x 1.5 cm. 3. New small bilateral pleural effusions. VTE: Positive DICTATED BY: BRYCE BOWERS MD DATE/TIME DICTATED:09/10/161341 MEMBERSHIP SECRETARY:NANETTE DATE/TIME TRANSCRIBED:09/10/161341 CONFIDENTIAL, DO NOT COPY WITHOUT APPROPRIATE AUTHORIZATION. <Electronically signed in Other Vendor System> SIGNED BY: BRYCE BOWERS MD. 09/10/16 1433 Initial ED EKG: NSR, nonspecific ST T wave chg Prior EKG: unchanged Rhythm Strip: normal sinus rhythm Comments: HER O2 SAT IS 100% ON RA WHILE AT REST BUT DROPS TO 94% WITH JUST TALKING. PT HAS BEEN UPDATED ON LAB AND CT RESULTS. WILL DISCUSS WITH PULMONARY. PT'S SYMTPOMS ARE MORE CONSISTENT WITH CHF. HER LFT'S ARE ELEVATED AND SHE HAS B/L LE EDEMA. HER LAST EF WAS 55%. D/W DR. KEENAN. Departure Departure Disposition: STILL A PATIENT Condition: Guarded Clinical Impression Primary Impression: CHF (congestive heart failure) Referrals: DENICE KRISHNA MD (PCP/Family) Departure Forms: Customer Survey General Discharge Information Admission Note Spoke With: DENICE KRISHNA MD Documentation of Exam: Documentation of any treatments & extenuating circumstances including Concerns Regarding Discharge (functional status, medication knowledge or non-compliance, living conditions, etc.) that warrant an admission rather than observation: [ TELE MONITORING, IV LASIX, CARDIOLOGY EVAL, SERIAL ENZYMES.] Critical Care Note Critical Care Note Critical Care Time: mins: (45 MIN)
[2016-09-10 11:13] LABS: ABSOLUTE BASOPHIL COUNT 0 /CUMM (0.0-0.2); ABSOLUTE EOSINOPHIL COUNT 0.1 /CUMM (0.0-0.7); ABSOLUTE GRANULOCYTE CT 5.1 /CUMM (1.4-6.5); ABSOLUTE LYMPH COUNT 2.3 /CUMM (1.2-3.4); ABSOLUTE MONOCYTE COUNT 0.6 /CUMM (0.10-0.60); BASOPHIL % 0.3 % (0.0-2.0); EOSINOPHIL % 1.7 % (0-5); GRANULOCYTE % 62.5 % (42.2-75.2); HEMATOCRIT 27.6 % (37-47); MEAN CORPUSCULAR HGB 28.9 PG (27.0-31.0); MEAN CORPUSCULAR VOLUME 87.6 FL (81.0-99.0); MEAN PLATELET VOLUME 8.7 FL (7.4-10.4); PLATELET COUNT 335 /CUMM (130-400); RBC DISTRIBUTION WIDTH 18.4 % (11.5-14.5); RED BLOOD CELL CT 3.16 /CUMM (4.20-5.40); WHITE BLOOD CELL COUNT 8.2 /CUMM (4.8-10.8)
--- NOTE | 2016-09-10 12:02 | NUR ---
PT TO CAT
--- NOTE | 2016-09-10 12:32 | NUR ---
CONFIRMED WITH [facility]ER [facility]ENTER STAFF, THAT PORT THAT WAS ACCESSED TODAY IS NOT A POWER PORT NEEDLE. NEW 20G IV EST TO RT FOREARM.
--- NOTE | 2016-09-10 12:50 | NUR ---
PT TO CAT.
--- NOTE | 2016-09-10 13:14 | NUR ---
PT BACK FROM CT
--- NOTE | 2016-09-10 14:33 | CT SCAN REPORT ---
EXAMINATION: CT ANGIOGRAM CHEST WITHOUT AND WITH CONTRAST (CT PULMONARY ANGIOGRAM FOR PE) CLINICAL INFORMATION: Known small pulmonary emboli, increased shortness of breath and dyspnea on exertion. COMPARISON: CTA chest 09/01/2016. TECHNIQUE: Prior to contrast administration, noncontrast localization images were obtained. Subsequently, multidetector volumetric imaging was performed from the thoracic inlet to below the diaphragms following the administration of 95 mL Optiray 350 intravenous contrast. No contrast reaction reported. Sagittal, coronal, and MIP oblique sagittal reformatted images were obtained on the CT workstation, uploaded to PACS, and reviewed. TOTAL EXAM DLP: 439.25 mGy-cm. FINDINGS: QUALITY OF STUDY/CONTRAST BOLUS: Satisfactory PULMONARY ARTERIES: There are residual small filling defects within the right lower lobe segmental and subsegmental pulmonary arteries and in the left lower lobe segmental pulmonary arteries. The appearance is not significantly changed compared with the prior exam; no increasing or new filling defects are identified. THORACIC AORTA: No aneurysm or dissection. LUNG: Patchy areas of ground-glass opacity in both lungs may reflect a combination of mild edema and atelectasis. PLEURA: New small bilateral pleural effusions. MEDIASTINUM: Normal heart size. No pericardial effusion. The 1.6 x 1.5 cm anterior mediastinal soft tissue nodule (2, 124/434) is unchanged from prior exams. No evidence of septal bowing or right heart strain. CHEST WALL/AXILLA: No axillary lymphadenopathy. Surgical clips in the left breast. There is a right chest port in place. OSSEOUS STRUCTURES: No acute or suspicious osseous abnormality. UPPER ABDOMEN: Unremarkable. There is reflux of contrast into the hepatic veins. This is similar to the prior exam. There are no signs of right heart strain. The right atrium and right ventricle are not dilated. No septal bowing is identified. IMPRESSION: 1. Residual bilateral lower lobe pulmonary emboli, not significantly changed compared with the prior exam. While there is contrast visualized within the hepatic veins and IVC, there is no septal bowing or signs of right heart strain. 2. Unchanged soft tissue nodule in the anterior mediastinum measuring 1.6 x 1.5 cm. 3. New small bilateral pleural effusions. VTE: Positive
--- NOTE | 2016-09-10 15:22 | NUR ---
ASSUMED CARE OF PT. RECIEVED REPORT FROM JOELLE Byrd
--- NOTE | 2016-09-10 15:39 | NUR ---
MEDICATED WITH IV LASIX. PT DENIES SOB OR ANY DISCOMFORT AT PRESENT. CALL [facility] WITHIN REACH. PT ENCOURAGED TO CALL FOR ASSIST TO BR.
--- NOTE | 2016-09-10 16:18 | History & Physical ---
PRETTY KOHLER MD 09/10/16 4288: General Information and HPI History of Present Illness: 70 year old woman with past medical history of fibromyalgia, non-insulin dependent diabetes mellitus, and breast cancer seen for evaluation of worsening shortness of breath. Patient was recently hospitalized at [facility] from 09/01/16 - 09/03/16 where she was diagnosed with a pulmonary embolism and discharged to home on Eliquis. She reports that since discharge she has had mild baseline shortness of breath with 4 or 5 episodes of profound shortness of breath secondary to exertion with associated lightheadedness/dizziness and lower extremity swelling. She was seen by her oncologist today at her previously scheduled appointment whom refferred the patient to the [place] [facility] given her obvious shortness of breath. She otherwise denies any blurred/double vision, lightheadedness/dizziness, headache, fever, chills, chest pain/discomfort, cough, nausea, vomiting, diarrhea, abdominal pain, urinary discomfort, constipation, or new numbness/ tingling. Allergies/Medications Allergies: Coded Allergies: No Known Allergies (06/08/16) Home Med list Apixaban (Eliquis) 5 MG TABLET 2 TAB PO BID PE . Apixaban (Eliquis) 5 MG TABLET 1 TAB PO BID PE .START THIS MEDICATION ON 09/10/16 Aspirin (Ecotrin*) 81 MG TABLET.DR 1 TAB PO DAILY heart health (Reported) Escitalopram Oxalate 20 MG TABLET 1 TAB PO DAILY ANXIETY / DEPRESSION ( Reported) Meloxicam 15 MG TABLET 1 TAB PO DAILY PAIN/INFLAMMATION (Reported) Metformin HCl 1,000 MG TABLET 1 TAB PO BID DM . Milnacipran HCl (Savella) 25 MG TABLET 1 TAB PO BID PAIN (Reported) Multivitamin (Daily Multiple Vitamin) 1 EACH TABLET 1 TAB PO DAILY supplement (Reported) Nebivolol HCl (Bystolic) 10 MG TABLET 1 TAB PO DAILY BP (Reported) Simvastatin (Simvastatin*) 40 MG TABLET 1 TAB PO QPM CHOLESTEROL (Reported) Valsartan 160 MG TABLET 1 TAB PO DAILY HTN (Reported) Zolpidem Tartrate 5 MG TABLET 1 TAB PO QPMP INSOMNIA (Reported) Past History Travel History Traveled to [place] past 21 day No Medical History Neurological: NONE EENT: NONE Cardiovascular: NONE Respiratory: NONE Gastrointestinal: NONE Hepatic: NONE Renal: NONE Musculoskeletal: FIBROMYALGIA Psychiatric: NONE Endocrine: diabetes Blood Disorders: NONE Cancer(s): breast cancer PAP[employer] BOX C[employer]TER/Reproductive: NONE Surgical History Surgical History: non-contributory Past Family/Social History Family History Relations & Conditions if any Relation not specified for: FHx: uterine cancer Psychosocial History ETOH Use: occasional use Illicit Drug Use: denies illicit drug use Functional Ability ADLs Independent: dressing, eating, toileting, bathing. Ambulation: independent IADLs Independent: shopping, housework, finances, food prep, telephone, transportation , medication admin. Review of Systems Review of Systems Constitutional: Reports: see HPI. Exam & Diagnostic Data Last 24 Hrs of Vital Signs/I&O Vital Signs Date Time Temp Pulse Resp B/P B/P Pulse O2 O2 Flow FiO2 Mean Ox Delivery Rate 09/10 1704 97.5 106 18 126/63 97 09/10 1522 95 16 140/63 97 Room Air 09/10 1513 94 Room Air 09/10 1319 97.7 98 18 134/63 98 09/10 1020 97.3 109 18 180/82 99 Room Air Intake & Output 09/10 1600 09/10 0800 09/10 0000 Intake Total Output Total Balance Patient 92.533 kg Weight Weight Reported by Patient Measurement Method Physical Exam General Appearance Alert, Oriented X3, Cooperative, No Acute Distress HEENT Atraumatic, EOMI, Mucous Membr. moist/pink Neck Supple, No JVD Cardiovascular Regular Rate, Normal S1, Normal S2, No Murmurs Lungs Normal Air Movement, scant bibasilar crackles Abdomen Normal Bowel Sounds, Soft, No Tenderness, No Hepatospenomegaly, No Masses Neurological Normal Speech, Normal Tone, Cranial Nerves 3-12 NL Extremities No Clubbing, No Cyanosis, Normal Pulses, Trace bilateral lower extremity edema Vascular Normal Pulses, Pulses Symmetrical Diagnostic Data EKG Results NSR HR 94 NJ 152 QTc 476 Other Results SERVICE DATE: 09/10/16 EXAM TYPE: CAT - CTA CHEST-PULMONARY EMBOLISM IMPRESSION: 1. Residual bilateral lower lobe pulmonary emboli, not significantly changed compared with the prior exam. While there is contrast visualized within the hepatic veins and IVC, there is no septal bowing or signs of right heart strain. 2. Unchanged soft tissue nodule in the anterior mediastinum measuring 1.6 x 1.5 cm. 3. New small bilateral pleural effusions. VTE: Positive Assessment/Plan Assessment: 70 year old woman with history of breast cancer, fibromyalgia, and non-insulin dependent diabetes mellitus seen for persistent/worsening shortness of breath since she was recently discharged from [facility] on 09/03/16 after being diagnosed with a bilateral pulmonary embolism and discharged to home on Eliquis. #Bilateral pulmonary embolism #New pleural effusions #Breast Cancer #Fibromyalgia #Depression Patient reports that she has had worsening symptoms of shortness of breath since her recent hospital discharge, especially upon ambulation. Vital Signs in the ED were unremarkable; except for her oxygenation with exertion. Physical examination only demonstrated trace lower extremity edema and was otherwise unremarkable. CBC/BMP/LFTs within normal limits, BNP 1170, troponin 0.02. CTA- stable appearing bilateral pulmonary embolism with new bilateral pleural effusions. Given per persistent symptoms and new lower extremity swelling it appears patient is having clinically evident heart failure most likely secondary to her known bilateral pulmonary emboli. Patient was given intravenous lasix and admitted to the telemetry floor for further evaluation and cardiology consultation. -Telemetry -Supplemental oxygen, goal >92%, titrate as tolerated -TRC with albuterol PRN -Troponin/EKG x3 -Aspirin 81mg PO Daily -Eliquis 5mg PO BID -Atorvastatin 20mg PO Daily -Lasix 40mg IV Daily -Lexapro 20mg PO Daily -Savella 25mg PO BID -Nebivolol 10mg PO Daily -Losartan 50mg PO Daily -Echocardiogram -Cardiology consult -Heme/Onc consult Non-insulin Dependent Diabetes Mellitus -Accuchecks TIDAC/HS -Hold oral hypoglycemics -Novolog SSI Pain Plan-Acetaminophen, Toradol Diet-Regular Diet DVT PPx-Eliquis Code Status-FULL CODE As Ranked By This Provider Problem List: 1. Pulmonary embolism Core Measures/Miscellaneous Acute Coronary Syndrome ACS Diagnosis: No Cerebrovascular Accident CVA/TIA Diagnosis: No Congestive Heart Failure CHF Diagnosis: No VTE (View Protocol) VTE Risk Factors: Acute medical illness, Age > 40, Cancer/chemo/oth therapy, CHF or Resp failure, Obesity No [facility] VTE prophylaxis d/t: No contraindications No VTE Pharm Prophylaxis d/t: No contraindications VTE Diagnosis: Yes VTE Type: Pulmonary Embolism VTE Confirmed by (Test): CT CHEST ANGIOGRAM Sepsis (View Protocol) Severe Sepsis Present: No Septic Shock Septic Shock Present: No Miscellaneous Documentation Attending Case Discussed With: [facility] Primary Care Physician: DENICE HUGHES MD Patient sees these Specialists Dr. Abdon Barnes Level of Patient Care: Telemetry Consults Needed: 1 Consulting Specialty: Cardiology Consults Needed: 2 Consulting Specialty: Hematology/Oncology TRISTAN REZA 09/10/16 1644: Resident Review Statement Resident Statement: examined this patient, discussed with internal specialist, agreed with internal specialist Other Findings: Patient is a 70-year-old woman with a past medical history significant for stage IA HER2 postive breast cancer status partial mastectomy and AC chemotherapy and currently on paclitaxel and trastuzumab last on 08/27/2016, recently admitted 09/01 for pulmonary embolism was discharged on elliquis presented to the ED for the evaluation of worsening shortness of breath. Patient mentioned that since the time of discharge from the hospital last week she has been having spells of exertional shortness of breath associated with sweating and dizziness/lightheadedness, never have the symptoms before. Denied any loss of consciousness/chest pain/palpitations nausea or vomiting. Her symptoms have been getting worse. Patient was seen at Dr. Hughes's office this Wednesday for the similar complaints and was referred to see the test borer helper Dr. Fox tomorrow. Since last night she has also noticed lower extremity swelling as well .Today she was at the cancer center for her chemotherapy, seen by Dr. Tillman. On ambulation at the Center she became really short of breath(ambulatory sats were 91% and she was sent to the ED for further evaluation). Patient denied any recent sick contacts/recent travels. Denied any abdominal discomfort or urinary complaints. In the ED patient was found to be in mild to moderate respiratory distress(even on rest), labs were evident for elevated proBNP and CTA was consistent with small bilateral pleural effusions with Residual bilateral lower lobe pulmonary emboli, not significantly changed compared with the prior exam. , patient was given 1 time dose of IV Lasix 40 mg, that resulted in improvement of her symptoms. ED course Vital admission to be 97.3, pulse 109, respiratory rate 18, blood pressure 180/ 82 saturating more than 96% on room air. Examination General Appearance: Alert, mild Distress Skin: Grossly normal HEENT: PEERLA Neck: Supple, No JVD Cardiovascular: Regular Rate, Normal S1, Normal S2, No Murmurs Lungs: Clear to Auscultation, with some crackles Abdomen: Normal Bowel Sounds, Soft, No Tenderness Neurological: Normal Speech, Strength at 5/5 X4 Ext, Cranial Nerves 3-12 NL, Reflexes 2+ Extremities: Trace bilateral lower activity edema Vascular: Normal Pulses Pertinent labs on admission: Normal WBC count, H&H low at 9.1/27.6, normal sodium and potassium slightly elevated AST 46, ALT 96, elevated blood glucose level : 206, elevated proBNP 1170. First set of troponin is negative with the EKG done in the ED showed normal sinus rhythm for R-wave progression. Urinalysis pending CTA chest was done in the ED that showed: Residual bilateral lower lobe pulmonary emboli, not significantly changed compared with the prior exam. While there is contrast visualized within the hepatic veins and IVC, there is no septal bowing or signs of right heart strain. Unchanged soft tissue nodule in the anterior mediastinum measuring 1.6 x 1.5 cm. New small bilateral pleural effusions. Assessment and plan: Patient is a 70-year-old woman with a past medical history significant for stage IA HER2 postive breast cancer status partial mastectomy and AC chemotherapy and currently on paclitaxel and trastuzumab last on 08/27/2016, recently admitted 09/01 for pulmonary embolism was discharged on xeralto presented to the ED for the evaluation of worsening shortness of breath for the last 2 weeks, previously exertional now even at rest associated with sweating and dizziness. Lab findings and imagings are consistent with possible acute heart failure( elevated proBNP a new small bilateral pleural effusions(not mentioned on the previous CTA), secondary due to b/l PE. Plan: * Admit the patient to telemetry floor. * Patient already received one-time dose of Lasix in the ED that resulted in improvement of her symptoms will continue with IV Lasix for now. * Obtain cardiology consult * Echo cardiogram done recently on 09/02/2016 showed borderline normal left ventricular systolic function (EF 50-55% )with mild concentric hypertrophy.Suggestion of inferior wall hypokinesia. Moderate Mitral Regurgitation. Moderate Left atrial enlargement. No significant Pulmonary hypertension. * We will not repeat echo for now , pending cardiolgy evaluation. * We will do serial troponins and EKGs to rule out any underlying ACS. * Oxygen as needed to keep saturations above 92% * TRC as needed * Watch for any hemodynamic instability. 2. History of recently diagnosed primary embolism * Continue home dose of elliquis 5 mg twice a day. 3 history of hypertension and hyperlipidemia: * Continue home medications including simvastatin, Bystolic, valsartan. 4. History of diabetes mellitus * Hold metformin * We'll start the patient on NovoLog sliding scale * Accu-Cheks. 5. History of chronic back pain: * Continue home dose of Savella 6. history of anxiety and depression * Continue home medications including Zoloft and Lexapro Severe pain controlled with IV Toradol DVT prophylaxis with elliquis Patient is full code [facility] 09/11/16 0915: Attending MD Review Statement Attending Statement Attending MD Statement: examined this patient, discuss w/resident/PA/FLOORWORKER LASTING, agreed w/resident/PA/FLOORWORKER LASTING, reviewed EMR data (avail)
--- NOTE | 2016-09-10 16:57 | NUR ---
BED 178
--- NOTE | 2016-09-10 17:38 | NUR ---
REPORT CALLED TO CHIN ON TELE UNIT
[2016-09-10 18:41] VITALS: BP 122/82
[2016-09-11 00:30] VITALS: BP 132/84
--- NOTE | 2016-09-11 05:43 | PN- Housestaff ---
Subjective Follow-up For: Bilateral Pulmonary embolism Pleural Effusions Hypoxia Tele-Events Since Last Visit: NSR HR 95-100 PVCs Subjective: Patient seen and examined. She is seen sitting upright in bed resting comfortably. She appears to be in no acute distress. She reports feeling much better today stating that her chest no longer has a 'heavy' feeling when she lies flat. She also believes that the swelling in her lower extremities has dramatically improved. She does admit to some mild persistent shortness of breath, but otherwise feels well with no new subjective complaints. Additionally she denies any lightheadedness/dizziness, headache, fever, chills, chest pain/discomfort, palpitations, cough, nausea, vomiting, diarrhea. Review of Systems Constitutional: Reports: see HPI. Objective Last 24 Hrs of Vital Signs/I&O Vital Signs Date Time Temp Pulse Resp B/P B/P Pulse O2 O2 Flow FiO2 Mean Ox Delivery Rate 09/11 0756 98.7 100 124/90 97 Room Air 09/11 0030 98.2 98 18 132/84 97 Room Air 09/11 0000 98 Room Air 09/10 1841 98.6 95 16 122/82 98 Room Air 09/10 1704 97.5 106 18 126/63 97 09/10 1522 95 16 140/63 97 Room Air 09/10 1513 94 Room Air 09/10 1319 97.7 98 18 134/63 98 09/10 1020 97.3 109 18 180/82 99 Room Air Intake & Output 09/11 1600 09/11 0800 09/11 0000 Intake Total 250 240 Output Total 300 Balance 250 -60 Intake, Oral 250 240 Output, Urine 300 Patient 88.677 kg Weight Weight Chair scale Measurement Method Physical Exam General Appearance: Alert, Oriented X3, Cooperative, No Acute Distress Other Physical Findings: General- well developed, well nourished elderly woman in no acute distress HEENT- NCAT, PERRL, EOMI, anicteric sclera, moist mucous membranes Neck- Supple, no NVD Chest- S1, S2 w/o m/g/r; RRR Lung- Normal airflow, scant right sided basilar crackles Abdomen- Soft, nontender, nondistended, bowel sounds intact Neuro- Awake and alert, CN II-XII grossly intact Ext- normal pulses, no cyanosis/clubbing/edema Current Medications: Current Medications Sig/Estephania Start time Last Medication Dose Route Stop Time Status Admin Acetaminophen 650 MG Q6P PRN 09/10 1600 AC 09/10 PO 2026 Apixaban 5 MG BID 09/10 2199 AC 09/10 PO 213 Aspirin Buffered 81 MG DAILY 09/11 1000 AC PO Atorvastatin Calcium 20 MG 1700 09/10 1700 AC 09/10 PO 2024 Escitalopram Oxalate 20 MG DAILY 09/11 1000 AC PO Furosemide 40 MG DAILY 09/11 1000 AC IV Furosemide 0 .STK-MED ONE 09/10 1532 DC IV Furosemide 40 MG ONCE ONE 09/10 1515 DC 09/10 IV 09/10 1516 1539 Insulin Aspart 0 TIDAC 09/10 1700 AC 09/11 SC 0834 Ketorolac 15 MG Q6P PRN 09/10 1600 AC Tromethamine IV Losartan Potassium 50 MG DAILY 09/11 1000 AC PO Milnacipran HCl 25 MG BID 09/10 2200 AC 09/10 PO 2134 Nebivolol 10 MG AT BEDTIME 09/11 2199 AC PO Nebivolol 10 MG DAILY 09/11 1000 DC PO Oxycodone HCl 5 MG Q6P PRN 09/10 1600 DC PO Zolpidem Tartrate 5 MG AT BEDTIME NEED.. 09/10 2199 AC 09/10 PO 2354 Last 24 Hrs of Lab/Tio Results Last 24 Hrs of Labs/Mics: Laboratory Tests 09/11/16 0435: Anion Gap 7, Estimated GFR > 60, BUN/Creatinine Ratio 17.1, CBC w Diff NO MAN DIFF REQ, RBC 2.93 L, MCV 85.5, MCH 28.7, RDW 18.4 H, MPV 8.4, Gran % 65.5, Lymphocytes % 22.6, Monocytes % 7.4, Eosinophils % 3.8, Basophils % 0.7, Absolute Granulocytes 3.4, Absolute Lymphocytes 1.2, Absolute Monocytes 0.4, Absolute Eosinophils 0.2, Absolute Basophils 0, PUBS MCHC 33.6 09/10/16 2350: Troponin I 0.03 09/10/16 1645: Troponin I 0.03 09/10/16 1530: Urine Color YEL, Urine Clarity CLDY H, Urine pH 6.0, Ur Specific [place] 1.010, Urine Protein 100 H, Urine Ketones NEG, Urine Nitrite NEG, Urine Bilirubin NEG@ ICTO, Urine Urobilinogen 0.2, Ur Leukocyte Esterase TRACE H, Ur Microscopic SEDIMENT EXAMINED, Urine RBC PACKD H, Urine WBC 3-5 H, Ur Epithelial Cells RARE, Urine Bacteria MANY H, Urine Mucus RARE, Urine Hemoglobin LARGE H, Urine Glucose NEG 09/10/16 1044: Anion Gap 11, Estimated GFR > 60, BUN/Creatinine Ratio 25.0, Glucose 207 H, Calcium 9.6, Total Bilirubin 0.7, AST 46 H, ALT 96 H, Alkaline Phosphatase 201 H, Troponin I 0.02, Zrn-J-Feosnhzyfih Pept 1170 H, Total Protein 5.7 L, Albumin 3.7, Globulin 2.0, Albumin/Globulin Ratio 1.9, CBC w Diff NO MAN DIFF REQ, RBC 3.16 L, MCV 87.6, MCH 28.9, RDW 18.4 H, MPV 8.7, Gran % 62.5, Lymphocytes % 28.2, Monocytes % 7.3, Eosinophils % 1.7, Basophils % 0.3, Absolute Granulocytes 5.1, Absolute Lymphocytes 2.3, Absolute Monocytes 0.6, Absolute Eosinophils 0.1, Absolute Basophils 0, PUBS MCHC 33.0 Assessment/Plan Assessment: 70 year old woman with history of breast cancer, fibromyalgia, and non-insulin dependent diabetes mellitus seen for persistent/worsening shortness of breath since she was recently discharged from [facility] on 09/03/16 after being diagnosed with a bilateral pulmonary embolism and discharged to home on Eliquis. #Bilateral pulmonary embolism #New pleural effusions #Breast Cancer #Fibromyalgia #Depression Patient reports that she has had worsening symptoms of shortness of breath since her recent hospital discharge, especially upon ambulation. Vital Signs in the ED were unremarkable; except for her oxygenation with exertion. Physical examination only demonstrated trace lower extremity edema and was otherwise unremarkable. CBC/BMP/LFTs within normal limits, BNP 1170, troponin 0.02. CTA- stable appearing bilateral pulmonary embolism with new bilateral pleural effusions. Given per persistent symptoms and new lower extremity swelling it appears patient is having clinically evident heart failure most likely secondary to her known bilateral pulmonary emboli. Patient was given intravenous lasix and admitted to the telemetry floor for further evaluation and cardiology consultation. Patient reported dramatic improvement in her shortness of breath and lower extremity swelling and receiving intravenous lasix. Patient's shortness of breath improved and patient was saturating adequately on room air. She is dishcharged to home with a prescription for oral lasix and instruction to follow up with Dr. Hughes as an outpatient in one week. -Telemetry -Supplemental oxygen, goal >92%, titrate as tolerated -TRC with albuterol PRN -Troponin/EKG x3 -Aspirin 81mg PO Daily -Eliquis 5mg PO BID -Atorvastatin 20mg PO Daily -Lasix 40mg IV Daily -Lexapro 20mg PO Daily -Savella 25mg PO BID -Nebivolol 10mg PO Daily -Losartan 50mg PO Daily -Echocardiogram -Cardiology consult -Heme/Onc consult Non-insulin Dependent Diabetes Mellitus -Accuchecks TIDAC/HS -Hold oral hypoglycemics -Novolog SSI Pain Plan-Acetaminophen, Toradol Diet-Regular Diet DVT PPx-Eliquis Code Status-FULL CODE Problem List: 1. Breast cancer 2. Pulmonary embolism Pain Ratin Pain Location: None Pain Goal: Remain pain free Pain Plan: See assessment Tomorrow's Labs & Rationales: BEP-lasix Consulting Request: Consulting Specialty: Hematology/Oncology
[2016-09-11 07:56] VITALS: BP 124/90
[2016-09-11 08:03] LABS: ABSOLUTE BASOPHIL COUNT 0 /CUMM (0.0-0.2); ABSOLUTE EOSINOPHIL COUNT 0.2 /CUMM (0.0-0.7); ABSOLUTE GRANULOCYTE CT 3.4 /CUMM (1.4-6.5); ABSOLUTE LYMPH COUNT 1.2 /CUMM (1.2-3.4); ABSOLUTE MONOCYTE COUNT 0.4 /CUMM (0.10-0.60); BASOPHIL % 0.7 % (0.0-2.0); EOSINOPHIL % 3.8 % (0-5); GRANULOCYTE % 65.5 % (42.2-75.2); HEMATOCRIT 25.1 % (37-47); MEAN CORPUSCULAR HGB 28.7 PG (27.0-31.0); MEAN CORPUSCULAR HGB CONC 33.6 G/DL (33.0-37.0); MEAN CORPUSCULAR VOLUME 85.5 FL (81.0-99.0); MEAN PLATELET VOLUME 8.4 FL (7.4-10.4); PLATELET COUNT 270 /CUMM (130-400); RBC DISTRIBUTION WIDTH 18.4 % (11.5-14.5); RED BLOOD CELL CT 2.93 /CUMM (4.20-5.40); WHITE BLOOD CELL COUNT 5.2 /CUMM (4.8-10.8)
--- NOTE | 2016-09-11 09:12 | Admission Certification ---
Admission Certification Certification Statement - As attending physician, I certify that at the time of - admission, based on clinical presentation, severity of - symptoms, need for further diagnostic testing and - therapeutic interventions, and risk of adverse outcomes - without in-hospital treatment, in my clinical assessment, - this patient requires an acute hospital stay for a minimum - of two nights or longer. I have also considered psychsocial - factors such as support system, advanced age, financial - issues, cognitive issues, and failed out-patient treatments, - past re-admission history, safety of patient, and lack of - compliance as applicable. Specific rationale supporting this admission is: Shortness of breath, PE, CHF
--- NOTE | 2016-09-11 09:15 | PN- Att Addend ---
Attending Addendum Attending Brief Note Patient reports improved breathing this morning and lower extremity edema improved with Lasix. General Appearance: Alert, No Acute Distress Skin: Grossly normal HEENT: PEERLA Neck: Supple, No JVD Cardiovascular: Regular Rate, Normal S1, Normal S2, No Murmurs Lungs: Clear to Auscultation, Normal Air Movement Abdomen: Normal Bowel Sounds, Soft, No Tenderness Neurological: Normal Speech, Strength at 5/5 X4 Ext, Cranial Nerves 3-12 NL, Reflexes 2+ Extremities: No Clubbing, No Cyanosis, No Edema Vascular: Normal Pulses Assessment 70-year-old female with history of fiber myalgia, diabetes and recently diagnosed breast cancer on chemotherapy. She was hospitalized recently for multiple small PE for which she was started on Eliquis and discharged home. She returns with complaints of shortness of breath with minimal exertion and drop in oxygen saturation. Repeat CTA suggests similar clot burden with new bilateral small pleural effusion. Patient has responded to IV Lasix overnight. Echo is pending at this point. We will continue to diuresis and she symptomatically improved. Plan Continue IV diuresis Follow echocardiogram Ambulate patient and check oxygen saturation Follow cardiology recommendations Continue other home medications and Eliquis Current Medications Sig/Estephania Start time Last Medication Dose Route Stop Time Status Admin Acetaminophen 650 MG Q6P PRN 09/10 1600 AC 09/10 PO 2026 Apixaban 5 MG BID 09/10 2199 AC 09/10 PO 2134 Aspirin Buffered 81 MG DAILY 09/11 1000 AC PO Atorvastatin Calcium 20 MG 1700 09/10 1700 AC 09/10 PO 202 Escitalopram Oxalate 20 MG DAILY 09/11 1000 AC PO Furosemide 40 MG DAILY 09/11 1000 AC IV Furosemide 0 .STK-MED ONE 09/10 1532 DC IV Furosemide 40 MG ONCE ONE 09/10 1515 DC 09/10 IV 09/10 1516 1539 Insulin Aspart 0 TIDAC 09/10 1700 AC 09/11 SC 0834 Ketorolac 15 MG Q6P PRN 09/10 1600 AC Tromethamine IV Losartan Potassium 50 MG DAILY 09/11 1000 AC PO Milnacipran HCl 25 MG BID 09/10 2200 AC 09/10 PO 2134 Nebivolol 10 MG AT BEDTIME 09/11 2200 AC PO Nebivolol 10 MG DAILY 09/11 1000 DC PO Oxycodone HCl 5 MG Q6P PRN 09/10 1600 DC PO Zolpidem Tartrate 5 MG AT BEDTIME NEED.. 09/10 2200 AC 09/10 PO 2355 Laboratory Tests 09/11 09/10 09/10 0435 2350 1645 Chemistry Sodium (137 - 145 mmol/L) 138 Potassium (3.5 - 5.1 mmol/L) 3.7 Chloride (98 - 107 mmol/L) 100 Carbon Dioxide (22 - 30 mmol/L) 31 H Anion Gap (5 - 16) 7 BUN (7 - 17 mg/dL) 12 Creatinine (0.5 - 1.0 mg/dL) 0.7 Estimated GFR (>60 ml/min) > 60 BUN/Creatinine Ratio (7 - 25 %) 17.1 Troponin I (< 0.11 ng/ml) 0.03 0.03 Hematology CBC w Diff NO MAN DIFF REQ WBC (4.8 - 10.8 /CUMM) 5.2 RBC (4.20 - 5.40 /CUMM) 2.93 L Hgb (12.0 - 16.0 G/DL) 8.4 L Hct (37 - 47 %) 25.1 L MCV (81.0 - 99.0 FL) 85.5 MCH (27.0 - 31.0 PG) 28.7 RDW (11.5 - 14.5 %) 18.4 H Plt Count (130 - 400 /CUMM) 270 MPV (7.4 - 10.4 FL) 8.4 Gran % (42.2 - 75.2 %) 65.5 Lymphocytes % (20.5 - 51.1 %) 22.6 Monocytes % (1.7 - 9.3 %) 7.4 Eosinophils % (0 - 5 %) 3.8 Basophils % (0.0 - 2.0 %) 0.7 Absolute Granulocytes (1.4 - 6.5 /CUMM) 3.4 Absolute Lymphocytes (1.2 - 3.4 /CUMM) 1.2 Absolute Monocytes (0.10 - 0.60 /CUMM) 0.4 Absolute Eosinophils (0.0 - 0.7 /CUMM) 0.2 Absolute Basophils (0.0 - 0.2 /CUMM) 0 PUBS MCHC (33.0 - 37.0 G/DL) 33.6 09/10 09/10 1530 1044 Chemistry Sodium (137 - 145 mmol/L) 137 Potassium (3.5 - 5.1 mmol/L) 4.1 Chloride (98 - 107 mmol/L) 101 Carbon Dioxide (22 - 30 mmol/L) 25 Anion Gap (5 - 16) 11 BUN (7 - 17 mg/dL) 15 Creatinine (0.5 - 1.0 mg/dL) 0.6 Estimated GFR (>60 ml/min) > 60 BUN/Creatinine Ratio (7 - 25 %) 25.0 Glucose (65 - 99 mg/dL) 207 H Calcium (8.4 - 10.2 mg/dL) 9.6 Total Bilirubin (0.2 - 1.3 mg/dL) 0.7 AST (14 - 36 U/L) 46 H ALT (9 - 52 U/L) 96 H Alkaline Phosphatase (<127 U/L) 201 H Troponin I (< 0.11 ng/ml) 0.02 Luv-M-Scbmueulzhf Pept (<125 pg/mL) 1170 H Total Protein (6.3 - 8.2 g/dL) 5.7 L Albumin (3.5 - 5.0 g/dL) 3.7 Globulin (1.9 - 4.2 gm/dL) 2.0 Albumin/Globulin Ratio (1.1 - 2.2 %) 1.9 Hematology CBC w Diff NO MAN DIFF REQ WBC (4.8 - 10.8 /CUMM) 8.2 RBC (4.20 - 5.40 /CUMM) 3.16 L Hgb (12.0 - 16.0 G/DL) 9.1 L Hct (37 - 47 %) 27.6 L MCV (81.0 - 99.0 FL) 87.6 MCH (27.0 - 31.0 PG) 28.9 RDW (11.5 - 14.5 %) 18.4 H Plt Count (130 - 400 /CUMM) 335 MPV (7.4 - 10.4 FL) 8.7 Gran % (42.2 - 75.2 %) 62.5 Lymphocytes % (20.5 - 51.1 %) 28.2 Monocytes % (1.7 - 9.3 %) 7.3 Eosinophils % (0 - 5 %) 1.7 Basophils % (0.0 - 2.0 %) 0.3 Absolute Granulocytes (1.4 - 6.5 /CUMM) 5.1 Absolute Lymphocytes (1.2 - 3.4 /CUMM) 2.3 Absolute Monocytes (0.10 - 0.60 /CUMM) 0.6 Absolute Eosinophils (0.0 - 0.7 /CUMM) 0.1 Absolute Basophils (0.0 - 0.2 /CUMM) 0 PUBS MCHC (33.0 - 37.0 G/DL) 33.0 Urines Urine Color (YEL,AMB,STR) YEL Urine Clarity (CLEAR) CLDY H Urine pH (5.0 - 8.0) 6.0 Ur Specific [place] (1.001 - 1.035) 1.010 Urine Protein (NEG,<30 MG/DL) 100 H Urine Ketones (NEG) NEG Urine Nitrite (NEG) NEG Urine Bilirubin (NEG) NEG@ICTO Urine Urobilinogen (0.1 - 1.0 EU/dl) 0.2 Ur Leukocyte Esterase (NEG) TRACE H Ur Microscopic SEDIMENT EXAMINED Urine RBC (0 - 5 /HPF) PACKD H Urine WBC (0 - 2 /HPF) 3-5 H Ur Epithelial Cells (NONE,FEW) RARE Urine Bacteria (NEG/NONE) MANY H Urine Mucus (FEW,NONE) RARE Urine Hemoglobin (NEG) LARGE H Urine Glucose (N MG/DL) NEG Vital Signs Date Time Temp Pulse Resp B/P B/P Pulse O2 O2 Flow FiO2 Mean Ox Delivery Rate 09/11 0756 98.7 100 124/90 97 Room Air 09/11 0030 98.2 98 18 132/84 97 Room Air 09/11 0000 98 Room Air 09/10 1841 98.6 95 16 122/82 98 Room Air 09/10 1704 97.5 106 18 126/63 97 09/10 1522 95 16 140/63 97 Room Air 09/10 1513 94 Room Air 09/10 1319 97.7 98 18 134/63 98 09/10 1020 97.3 109 18 180/82 99 Room Air
[2016-09-11 10:13] VITALS: BP 124/90
--- NOTE | 2016-09-11 10:58 | ECHOCARDIOGRAM REPORT ---
NATALEE SWENSON Age: 70 : 1945 Gender: F Exam Date: 09/10/2016 19:43 Exam Location: [address] [facility] Ht (in): 64 Wt (lb): 204 BSA: 2.08 BP: 126 / 63 Ordering Physician: TRISTAN REZA MD Referring Physician: Oleg Griffin MD Technologist: Saritha Morton STANLEY Room Number: [id number] Indications: CARDIOMYOPATHY Rhythm: Technical Quality: adequate FINDINGS Left Ventricle Normal LV chamber size and wall thickness. The estimated LVEF is 45-50%. There is mild global hypokinesis with mild to moderate inferolateral wall hypokinesis. Right Ventricle Suboptimally visualized right ventricle; however, grossly within normal limits Right Atrium Normal appearing right atrium Left Atrium Mildly dilated left atrium Mitral Valve Mild mitral annular calcification. There is poor leaflet coaptation with moderate mitral regurgitation. Aortic Valve Mildly sclerotic aortic valve leaflets with adequate leaflet opening. There is trace to mild aortic insufficiency. Tricuspid Valve Grossly normal appearing tricuspid valvular leaflets with mild tricuspid regurgitation. The estimated PA systolic pressure is 35 mmHg Pulmonic Valve Grossly normal appearing pulmonic valvular leaflet structure and function Pericardium Normal. Pericardium Great Vessels Normal great vessels CONCLUSIONS Normal LV chamber size and wall thickness. The estimated LVEF is 45-50%. There is mild global hypokinesis with mild to moderate inferolateral wall hypokinesis. Mild mitral annular calcification. There is poor leaflet coaptation with moderate mitral regurgitation. There is trace to mild aortic insufficiency. Mild tricuspid regurgitation. The estimated PA systolic pressure is 35 mmHg. James Scott M.D. (Electronically Signed) Final Date: 11 September 2016 10:57 MEASUREMENTS (Male / Female) Normal Values 2D ECHO LV Diastolic Diameter PLAX 5.5 cm 4.2 - 5.9 / 3.9 - 5.3 cm LV Systolic Diameter PLAX 4.1 cm 2.1 - 4.0 cm LV Fractional Shortening PLAX 25.5 % 25 - 46 % LV Ejection Fraction 2D Teich 49.7 % IVS Diastolic Thickness 1.1 cm LVPW Diastolic Thickness 1.1 cm LV Relative Wall Thickness 0.4 RV Internal Dim ED PLAX 3.0 cm 1.9 - 3.8 cm LVOT Diameter 1.9 cm Aortic Root Diameter 2.4 cm LA Systolic Diameter LX 4.6 cm 3.0 - 4.0 / 2.7 - 3.8 cm LA Volume 71.0 cm 18 - 58 / 22 - 52 cm Ascending Aorta Diameter 3.1 cm DOPPLER AV Peak Velocity 159.0 cm/s AV Peak Gradient 10.1 mmHg AV Mean Velocity 105.0 cm/s AV Mean Gradient 5.0 mmHg AV Velocity Time Integral 26.9 cm LVOT Peak Velocity 123.0 cm/s LVOT Peak Gradient 6.1 mmHg LVOT Mean Velocity 77.5 cm/s LVOT Mean Gradient 3.0 mmHg LVOT Velocity Time Integral 22.1 cm LVOT Stroke Volume 62.7 cm AV Area Cont Eq vti 2.3 cm AV Area Cont Eq pk 2.2 cm MV Peak Velocity 121.0 cm/s MV Peak Gradient 5.9 mmHg MV Mean Velocity 77.3 cm/s MV Mean Gradient 3.0 mmHg Mitral E Point Velocity 126.0 cm/s Mitral A Point Velocity 93.2 cm/s Mitral E to A Ratio 1.4 MV PHT Velocity 129.0 cm/s MV Deceleration Mason 592.0 cm/s MV Pressure Half Time 65.4 ms MV Area PHT 3.4 cm MV Deceleration Time 224.0 ms MR Peak Velocity 480.0 cm/s MR Peak Gradient 92.2 mmHg MR ERO PISA 0.1 cm MR Regurgitant Volume PISA 20.4 cm TR Peak Velocity 249.0 cm/s TR Peak Gradient 24.8 mmHg Right Atrial Pressure 10.0 mmHg Pulmonary Artery Systolic Pressu 34.8 mmHg Right Ventricular Systolic Press 34.8 mmHg PV Peak Velocity 101.0 cm/s PV Peak Gradient 4.1 mmHg PV Mean Velocity 73.0 cm/s PV Mean Gradient 2.0 mmHg PV Velocity Time Integral 19.0 cm LV E' Lateral Velocity 11.9 cm/s Mitral E to LV E' Lateral Ratio 10.6 LV E' Septal Velocity 7.1 cm/s Mitral E to LV E' Septal Ratio 17.7
--- NOTE | 2016-09-11 11:27 | Cons- Oncology ---
General Information and HPI Consulting Request Date of Consult: 09/11/16 Requested By: DENICE KRISHNA MD Reason for Consult: breast cancer, dyspnea Source of Information: patient Exam Limitations: no limitations History of Present Illness: Ms. Rubin is a 70-year-old female with hypertension, hyperlipidemia, fibromyalgia, diabetes mellitus, and stage IB breast cancer s/p 4 cycles of AC, partial mastectomy, and currently on paclitaxel with trastuzumab who presented to the hospital after being seen in clinic for week 8 of 12 for her chemotherapy. In the clinic she has had significant dyspnea and fatigue with minimal exertion. She has presyncopal symptoms with short ambulation. She reports that she has severe blurry vision with short ambulation. She has new lower extremity edema. Her oxygen saturation was checked today by me. She has saturation in the high 90s at rest but goes down to low 90s with minimal exertion. She get tachycardic and tachypnic. Due to her severe symptoms, I will held therapy and sent her to the hospital for evaluation. She was evaluated in the ED. CTA did not demonstrate worsening of thrombosis. She was noted to have new pleural effusion. She had elevate BNP. She was given a dose of IV furosemide and had some improvement. She feels a little better today. Allergies/Medications Allergies: Coded Allergies: No Known Allergies (06/08/16) Home Med List: Apixaban (Eliquis) 5 MG TABLET 2 TAB PO BID PE . Apixaban (Eliquis) 5 MG TABLET 1 TAB PO BID PE .START THIS MEDICATION ON 09/10/16 Aspirin (Ecotrin*) 81 MG TABLET.DR 1 TAB PO DAILY heart health (Reported) Escitalopram Oxalate 20 MG TABLET 1 TAB PO DAILY ANXIETY / DEPRESSION ( Reported) Meloxicam 15 MG TABLET 1 TAB PO DAILY PAIN/INFLAMMATION (Reported) Metformin HCl 1,000 MG TABLET 1 TAB PO BID DM . Milnacipran HCl (Savella) 25 MG TABLET 1 TAB PO BID PAIN (Reported) Multivitamin (Daily Multiple Vitamin) 1 EACH TABLET 1 TAB PO DAILY supplement (Reported) Nebivolol HCl (Bystolic) 10 MG TABLET 1 TAB PO DAILY BP (Reported) Simvastatin (Simvastatin*) 40 MG TABLET 1 TAB PO QPM CHOLESTEROL (Reported) Valsartan 160 MG TABLET 1 TAB PO DAILY HTN (Reported) Zolpidem Tartrate 5 MG TABLET 1 TAB PO QPMP INSOMNIA (Reported) Current Medications: Current Medications Sig/Estephania Start time Last Medication Dose Route Stop Time Status Admin Acetaminophen 650 MG Q6P PRN 09/10 1600 AC 09/10 PO 2026 Apixaban 5 MG BID 09/10 2200 AC 09/10 PO 213 Aspirin Buffered 81 MG DAILY 09/11 1000 AC PO Atorvastatin Calcium 20 MG 1700 09/10 1700 AC 09/10 PO 202 Escitalopram Oxalate 20 MG DAILY 09/11 1000 AC PO Furosemide 40 MG DAILY 09/11 1000 AC IV Furosemide 0 .STK-MED ONE 09/10 1532 DC IV Furosemide 40 MG ONCE ONE 09/10 1515 DC 09/10 IV 09/10 1516 1539 Insulin Aspart 0 TIDAC 09/10 1700 AC 09/11 SC 0834 Ketorolac 15 MG Q6P PRN 09/10 1600 AC Tromethamine IV Losartan Potassium 50 MG DAILY 09/11 1000 AC PO Milnacipran HCl 25 MG BID 09/10 2200 AC 09/10 PO 2134 Nebivolol 10 MG AT BEDTIME 09/11 2200 AC PO Nebivolol 10 MG DAILY 09/11 1000 DC PO Oxycodone HCl 5 MG Q6P PRN 09/10 1600 DC PO Zolpidem Tartrate 5 MG AT BEDTIME NEED.. 09/10 2200 AC 09/10 PO 2355 Review of Systems Review of Systems Constitutional: Reports: malaise, weakness. Denies: chills, diaphoresis, fever. Cardiovascular: Reports: orthopena, palpitations, peripheral edema. Denies: chest pain. Respiratory: Reports: orthopnea, short of breath. Denies: cough, hemoptysis. GI: Reports: diarrhea. Denies: abdominal pain. Genitourinary: Reports: dysuria, frequency, hematuria. Musculoskeletal: Reports: back pain. Skin: Denies: rash. Neurological/Psychological: Reports: anxiety. 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 Home Smoking Status: Never Smoked ETOH Use: occasional use Illicit Drug Use: denies illicit drug use Functional Ability ADLs Independent: dressing, eating, toileting, bathing. Ambulation: independent IADLs Independent: shopping, housework, finances, food prep, telephone, transportation , medication admin. Exam & Diagnostic Data Vital Signs and I&O Vital Signs Date Time Temp Pulse Resp B/P B/P Pulse O2 O2 Flow FiO2 Mean Ox Delivery Rate 09/11 0756 98.7 100 124/90 97 Room Air 09/11 0030 98.2 98 18 132/84 97 Room Air 09/11 0000 98 Room Air 09/10 1841 98.6 95 16 122/82 98 Room Air 09/10 1704 97.5 106 18 126/63 97 09/10 1522 95 16 140/63 97 Room Air 09/10 1513 94 Room Air 09/10 1319 97.7 98 18 134/63 98 Intake & Output 09/11 1600 09/11 0800 09/11 0000 Intake Total 250 240 Output Total 300 Balance 250 -60 Intake, Oral 250 240 Output, Urine 300 Patient 88.677 kg Weight Weight Chair scale Measurement Method Physical Exam General Appearance: well developed/nourished, no apparent distress, alert, awake , comfortable Head: atraumatic Ears, Nose, Throat: normal pharynx Respiratory: normal breath sounds, chest non-tender, decreased breath sounds ( RLL), crackles Cardiovascular: tachycardia Gastrointestinal: normal bowel sounds, soft, non-tender Extremities: pedal edema Neurologic/Psych: awake, alert, oriented x 3 Lymphatic: no anterior cervical kori Last 48 Hours of Lab Results: Laboratory Tests 09/11 09/10 09/10 0435 2350 1645 Chemistry Sodium (137 - 145 mmol/L) 138 Potassium (3.5 - 5.1 mmol/L) 3.7 Chloride (98 - 107 mmol/L) 100 Carbon Dioxide (22 - 30 mmol/L) 31 H Anion Gap (5 - 16) 7 BUN (7 - 17 mg/dL) 12 Creatinine (0.5 - 1.0 mg/dL) 0.7 Estimated GFR (>60 ml/min) > 60 BUN/Creatinine Ratio (7 - 25 %) 17.1 Troponin I (< 0.11 ng/ml) 0.03 0.03 Hematology CBC w Diff NO MAN DIFF REQ WBC (4.8 - 10.8 /CUMM) 5.2 RBC (4.20 - 5.40 /CUMM) 2.93 L Hgb (12.0 - 16.0 G/DL) 8.4 L Hct (37 - 47 %) 25.1 L MCV (81.0 - 99.0 FL) 85.5 MCH (27.0 - 31.0 PG) 28.7 RDW (11.5 - 14.5 %) 18.4 H Plt Count (130 - 400 /CUMM) 270 MPV (7.4 - 10.4 FL) 8.4 Gran % (42.2 - 75.2 %) 65.5 Lymphocytes % (20.5 - 51.1 %) 22.6 Monocytes % (1.7 - 9.3 %) 7.4 Eosinophils % (0 - 5 %) 3.8 Basophils % (0.0 - 2.0 %) 0.7 Absolute Granulocytes (1.4 - 6.5 /CUMM) 3.4 Absolute Lymphocytes (1.2 - 3.4 /CUMM) 1.2 Absolute Monocytes (0.10 - 0.60 /CUMM) 0.4 Absolute Eosinophils (0.0 - 0.7 /CUMM) 0.2 Absolute Basophils (0.0 - 0.2 /CUMM) 0 PUBS MCHC (33.0 - 37.0 G/DL) 33.6 09/10 09/10 1530 1044 Chemistry Sodium (137 - 145 mmol/L) 137 Potassium (3.5 - 5.1 mmol/L) 4.1 Chloride (98 - 107 mmol/L) 101 Carbon Dioxide (22 - 30 mmol/L) 25 Anion Gap (5 - 16) 11 BUN (7 - 17 mg/dL) 15 Creatinine (0.5 - 1.0 mg/dL) 0.6 Estimated GFR (>60 ml/min) > 60 BUN/Creatinine Ratio (7 - 25 %) 25.0 Glucose (65 - 99 mg/dL) 207 H Calcium (8.4 - 10.2 mg/dL) 9.6 Total Bilirubin (0.2 - 1.3 mg/dL) 0.7 AST (14 - 36 U/L) 46 H ALT (9 - 52 U/L) 96 H Alkaline Phosphatase (<127 U/L) 201 H Troponin I (< 0.11 ng/ml) 0.02 Diz-P-Ecrkvkcyxlc Pept (<125 pg/mL) 1170 H Total Protein (6.3 - 8.2 g/dL) 5.7 L Albumin (3.5 - 5.0 g/dL) 3.7 Globulin (1.9 - 4.2 gm/dL) 2.0 Albumin/Globulin Ratio (1.1 - 2.2 %) 1.9 Hematology CBC w Diff NO MAN DIFF REQ WBC (4.8 - 10.8 /CUMM) 8.2 RBC (4.20 - 5.40 /CUMM) 3.16 L Hgb (12.0 - 16.0 G/DL) 9.1 L Hct (37 - 47 %) 27.6 L MCV (81.0 - 99.0 FL) 87.6 MCH (27.0 - 31.0 PG) 28.9 RDW (11.5 - 14.5 %) 18.4 H Plt Count (130 - 400 /CUMM) 335 MPV (7.4 - 10.4 FL) 8.7 Gran % (42.2 - 75.2 %) 62.5 Lymphocytes % (20.5 - 51.1 %) 28.2 Monocytes % (1.7 - 9.3 %) 7.3 Eosinophils % (0 - 5 %) 1.7 Basophils % (0.0 - 2.0 %) 0.3 Absolute Granulocytes (1.4 - 6.5 /CUMM) 5.1 Absolute Lymphocytes (1.2 - 3.4 /CUMM) 2.3 Absolute Monocytes (0.10 - 0.60 /CUMM) 0.6 Absolute Eosinophils (0.0 - 0.7 /CUMM) 0.1 Absolute Basophils (0.0 - 0.2 /CUMM) 0 PUBS MCHC (33.0 - 37.0 G/DL) 33.0 Urines Urine Color (YEL,AMB,STR) YEL Urine Clarity (CLEAR) CLDY H Urine pH (5.0 - 8.0) 6.0 Ur Specific [place] (1.001 - 1.035) 1.010 Urine Protein (NEG,<30 MG/DL) 100 H Urine Ketones (NEG) NEG Urine Nitrite (NEG) NEG Urine Bilirubin (NEG) NEG@ICTO Urine Urobilinogen (0.1 - 1.0 EU/dl) 0.2 Ur Leukocyte Esterase (NEG) TRACE H Ur Microscopic SEDIMENT EXAMINED Urine RBC (0 - 5 /HPF) PACKD H Urine WBC (0 - 2 /HPF) 3-5 H Ur Epithelial Cells (NONE,FEW) RARE Urine Bacteria (NEG/NONE) MANY H Urine Mucus (FEW,NONE) RARE Urine Hemoglobin (NEG) LARGE H Urine Glucose (N MG/DL) NEG Imaging/Other Studies: CTA chest 09/10/2016: 1. Residual bilateral lower lobe pulmonary emboli, not significantly changed compared with the prior exam. While there is contrast visualized within the hepatic veins and IVC, there is no septal bowing or signs of right heart strain. 2. Unchanged soft tissue nodule in the anterior mediastinum measuring 1.6 x 1.5 cm. 3. New small bilateral pleural effusions. Assessment/Plan Assessment: Ms. Rubin is a 70-year-old female with hypertension, hyperlipidemia, fibromyalgia, diabetes mellitus, and stage IB breast cancer s/p 4 cycles of AC, partial mastectomy, and currently on paclitaxel with trastuzumab who presented to the hospital after being seen in clinic for week 8 of 12 for her chemotherapy. In the clinic she has had significant dyspnea and fatigue with minimal exertion. She has presyncopal symptoms with short ambulation. She reports that she has severe blurry vision with short ambulation. She has new lower extremity edema. Her oxygen saturation was checked today by me. She has saturation in the high 90s at rest but goes down to low 90s with minimal exertion. She get tachycardic and tachypnic. Due to her severe symptoms, I will held therapy and sent her to the hospital for evaluation. Since hospitalization, CTA is negative for new thrombosis or worsening thrombosis. She has elevated BNP and lower extremity edema. She has some pleural effusion. These are concerning for CHF. She is on trastuzumab which has been known to cause cardiotoxicity. She also received adriamycin. Cardiology is seeing patient. Her symptoms seem to be out of proportion to her EF from last echocardiogram. She may need repeat echocardiogram. She may need to discontinue trastuzumab and remain only on paclitaxel. I will continue to follow her closely. She may need to evaluate the chest mass but this has been stable for years. She may need further dedicated imaging. Recommendations: 1. Cardiology evaluation 2. Echocardiogram 3. Continue apixaban 4. Follow up next week for chemotherapy Problem List: 1. Pulmonary embolism 2. Breast cancer 3. CHF (congestive heart failure) Other Findings/Comments: Please call [phone] with any questions or concerns. Consult Acknowledgment - Thank you for your consult request.
[2016-09-11] MEDS ORDERED: LASIX40 M1 PO ×2 (11:28→14:49)
--- NOTE | 2016-09-11 11:31 | Patient Discharge Instructions ---
Discharge Instructions General Discharge Information Special Instructions: Follow up with your primary care provider in one week after discharge. Take Lasix as directed. Continue to take Eliquis 5mg one tablet by mouth twice a day as previously directed. Continue all your other home medications. Follow up with cardiology after discharge for further evaluation of your heart function. A referral has been made. Acute Coronary Syndrome Inclusion Criteria At DC or during hospital stay patient has or had the following: ACS DIAGNOSIS No Discharge Core Measures Meds if any: Prescribed or Continued at Discharge Meds if any: NOT Prescribed or Continued at Discharge Congestive Heart Failure Inclusion Criteria At DC or during hospital stay patient has or had the following: CHF DIAGNOSIS No Discharge Core Measures Meds if any: Prescribed or Continued at Discharge Meds if any: NOT Prescribed or Continued at Discharge Cerebrovascular accident Inclusion Criteria At DC or during hospital stay patient has or had the following: CVA/TIA Diagnosis No Discharge Core Measures Meds if any: Prescribed or Continued at Discharge Meds if any: NOT Prescribed or Continued at Discharge Venous thromboembolism Inclusion Criteria VTE Diagnosis No VTE Type NONE VTE Confirmed by (Test) NONE Discharge Core Measures - Per Current guidelines, there needs to be overlap - treatment for the first 5 days of Warfarin therapy. - If discharged on Warfarin prior to 5 days of - overlap therapy, the patient will need to be - assessed for post discharge needs including - *Post discharge parental anticoagulation - *Warfarin and/or parental anticoagulation education - *Follow up date to check INR post discharge At least 5 days overlap therapy as Inpatient No Meds if any: Prescribed or Continued at Discharge Note: Overlap Therapy is Warfarin and Anticoagulant Meds if any: NOT Prescribed or Continued at Discharge
--- NOTE | 2016-09-11 11:41 | Cons- Cardiology ---
General Information and HPI Consulting Request Date of Consult: 09/11/16 Requested By: DENICE KRISHNA MD Reason for Consult: Dyspnea, congestive heart failure Source of Information: patient, old records Exam Limitations: no limitations History of Present Illness: The patient is a 70-year-old woman with a past medical history of diabetes mellitus, breast cancer (currently undergoing chemotherapy treatment), and a recent admission to our hospital one week ago for a pulmonary embolism ( discharged on Eliquis). He presents with worsening dyspnea and lower extremity edema. The patient states having continued symptoms of dyspnea with mild exertion following her recent discharge. Symptoms have been progressive in nature and she has as well noted increasing pedal edema with an increased weight gain of approximately 5 pounds on the night prior to arrival. There has been no symptoms of palpitations nor chest pains. She describes being able to perform a proximally 6 minutes of physical activity on a regular basis without chest pain On arrival, a repeat chest CT demonstrated no significant change in her perfusion pattern from a prior pulmonary embolism. There was new bilateral pleural effusions seen. An initial BNP was elevated at 1100. The patient had an echocardiogram which demonstrated a mild cardiomyopathy and moderate mitral regurgitation. Allergies/Medications Allergies: Coded Allergies: No Known Allergies (06/08/16) Home Med List: Apixaban (Eliquis) 5 MG TABLET 2 TAB PO BID PE . Apixaban (Eliquis) 5 MG TABLET 1 TAB PO BID PE .START THIS MEDICATION ON 09/10/16 Aspirin (Ecotrin*) 81 MG TABLET.DR 1 TAB PO DAILY heart health (Reported) Escitalopram Oxalate 20 MG TABLET 1 TAB PO DAILY ANXIETY / DEPRESSION ( Reported) Meloxicam 15 MG TABLET 1 TAB PO DAILY PAIN/INFLAMMATION (Reported) Metformin HCl 1,000 MG TABLET 1 TAB PO BID DM . Milnacipran HCl (Savella) 25 MG TABLET 1 TAB PO BID PAIN (Reported) Multivitamin (Daily Multiple Vitamin) 1 EACH TABLET 1 TAB PO DAILY supplement (Reported) Nebivolol HCl (Bystolic) 10 MG TABLET 1 TAB PO DAILY BP (Reported) Simvastatin (Simvastatin*) 40 MG TABLET 1 TAB PO QPM CHOLESTEROL (Reported) Valsartan 160 MG TABLET 1 TAB PO DAILY HTN (Reported) Zolpidem Tartrate 5 MG TABLET 1 TAB PO QPMP INSOMNIA (Reported) Current Medications: Current Medications Sig/[place] Start time Last Medication Dose Route Stop Time Status Admin Acetaminophen 650 MG Q6P PRN 09/10 1600 AC 09/10 PO 2027 Apixaban 5 MG BID 09/10 2200 AC 09/11 PO 1013 Aspirin Buffered 81 MG DAILY 09/11 1000 AC 09/11 PO 1012 Atorvastatin Calcium 20 MG 1700 09/10 1700 AC 09/10 PO 202 Escitalopram Oxalate 20 MG DAILY 09/11 1000 AC 09/11 PO 1012 Furosemide 40 MG DAILY 09/11 1000 AC 09/11 IV 1014 Furosemide 0 .STK-MED ONE 09/10 1532 DC IV Furosemide 40 MG ONCE ONE 09/10 1515 DC 09/10 IV 09/10 1516 1539 Insulin Aspart 0 TIDAC 09/10 1700 AC 09/11 SC 0834 Ketorolac 15 MG Q6P PRN 09/10 1600 AC Tromethamine IV Losartan Potassium 50 MG DAILY 09/11 1000 AC 09/11 PO 1013 Milnacipran HCl 25 MG BID 09/10 2200 AC 09/11 PO 1116 Nebivolol 10 MG AT BEDTIME 09/11 2200 AC PO Nebivolol 10 MG DAILY 09/11 1000 DC PO Oxycodone HCl 5 MG Q6P PRN 09/10 1600 DC PO Zolpidem Tartrate 5 MG AT BEDTIME NEED.. 09/10 2200 AC 09/10 PO 2355 Review of Systems Review of Systems: The review of systems is negative for chest pains, palpitations nor lightheadedness. The remainder of the 14 point review of systems is noncontributory with the exception of above. 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 Home Smoking Status: Never Smoked ETOH Use: occasional use Illicit Drug Use: denies illicit drug use Functional Ability ADLs Independent: dressing, eating, toileting, bathing. Ambulation: independent IADLs Independent: shopping, housework, finances, food prep, telephone, transportation , medication admin. Exam & Diagnostic Data Vital Signs and I&O Vital Signs Date Time Temp Pulse Resp B/P B/P Pulse O2 O2 Flow FiO2 Mean Ox Delivery Rate 09/11 1013 124/90 09/11 0756 98.7 100 124/90 97 Room Air 09/11 0030 98.2 98 18 132/84 97 Room Air 09/11 0000 98 Room Air 09/10 1841 98.6 95 16 122/82 98 Room Air 09/10 1704 97.5 106 18 126/63 97 09/10 1522 95 16 140/63 97 Room Air 09/10 1513 94 Room Air 09/10 1319 97.7 98 18 134/63 98 Intake & Output 09/11 1600 09/11 0800 09/11 0000 09/10 1600 09/10 0800 09/10 0000 Intake Total 250 240 Output Total 300 Balance 250 -60 Intake, Oral 250 240 Output, Urine 300 Patient 195 lb 204 lb Weight Weight Chair scale Reported by Patient Measurement Method Physical Exam: General: Nontoxic, no apparent distress. HEENT: Sclera and conjunctiva within normal limits, without xanthelasmas. Neck: Carotids 2+ without bruits. Respiratory: Scattered rhonchi and rales, air movement is good, without accessory respiratory muscle use. Heart: Regular rate and rhythm, 3/6 systolic ejection murmur at the left sternal border, without JVD. Abdomen: Soft, nontender, no masses, normoactive bowel sounds. Extremities: Without clubbing, cyanosis, proximally 1 mm of pitting edema in both lower extremities to the mid tibial region. Neuro: Nonfocal exam, strength, 5 out of 5 Skin: Within normal limits without lesions. Psych: Mood and affect: Normal Labs/Tio Results: Laboratory Tests 09/11 09/10 09/10 0435 2350 1645 Chemistry Sodium (137 - 145 mmol/L) 138 Potassium (3.5 - 5.1 mmol/L) 3.7 Chloride (98 - 107 mmol/L) 100 Carbon Dioxide (22 - 30 mmol/L) 31 H Anion Gap (5 - 16) 7 BUN (7 - 17 mg/dL) 12 Creatinine (0.5 - 1.0 mg/dL) 0.7 Estimated GFR (>60 ml/min) > 60 BUN/Creatinine Ratio (7 - 25 %) 17.1 Troponin I (< 0.11 ng/ml) 0.03 0.03 Hematology CBC w Diff NO MAN DIFF REQ WBC (4.8 - 10.8 /CUMM) 5.2 RBC (4.20 - 5.40 /CUMM) 2.93 L Hgb (12.0 - 16.0 G/DL) 8.4 L Hct (37 - 47 %) 25.1 L MCV (81.0 - 99.0 FL) 85.5 MCH (27.0 - 31.0 PG) 28.7 RDW (11.5 - 14.5 %) 18.4 H Plt Count (130 - 400 /CUMM) 270 MPV (7.4 - 10.4 FL) 8.4 Gran % (42.2 - 75.2 %) 65.5 Lymphocytes % (20.5 - 51.1 %) 22.6 Monocytes % (1.7 - 9.3 %) 7.4 Eosinophils % (0 - 5 %) 3.8 Basophils % (0.0 - 2.0 %) 0.7 Absolute Granulocytes (1.4 - 6.5 /CUMM) 3.4 Absolute Lymphocytes (1.2 - 3.4 /CUMM) 1.2 Absolute Monocytes (0.10 - 0.60 /CUMM) 0.4 Absolute Eosinophils (0.0 - 0.7 /CUMM) 0.2 Absolute Basophils (0.0 - 0.2 /CUMM) 0 PUBS MCHC (33.0 - 37.0 G/DL) 33.6 /22 09/10 1530 1044 Chemistry Sodium (137 - 145 mmol/L) 137 Potassium (3.5 - 5.1 mmol/L) 4.1 Chloride (98 - 107 mmol/L) 101 Carbon Dioxide (22 - 30 mmol/L) 25 Anion Gap (5 - 16) 11 BUN (7 - 17 mg/dL) 15 Creatinine (0.5 - 1.0 mg/dL) 0.6 Estimated GFR (>60 ml/min) > 60 BUN/Creatinine Ratio (7 - 25 %) 25.0 Glucose (65 - 99 mg/dL) 207 H Calcium (8.4 - 10.2 mg/dL) 9.6 Total Bilirubin (0.2 - 1.3 mg/dL) 0.7 AST (14 - 36 U/L) 46 H ALT (9 - 52 U/L) 96 H Alkaline Phosphatase (<127 U/L) 201 H Troponin I (< 0.11 ng/ml) 0.02 Cvg-P-Irmyamxhjfr Pept (<125 pg/mL) 1170 H Total Protein (6.3 - 8.2 g/dL) 5.7 L Albumin (3.5 - 5.0 g/dL) 3.7 Globulin (1.9 - 4.2 gm/dL) 2.0 Albumin/Globulin Ratio (1.1 - 2.2 %) 1.9 Hematology CBC w Diff NO MAN DIFF REQ WBC (4.8 - 10.8 /CUMM) 8.2 RBC (4.20 - 5.40 /CUMM) 3.16 L Hgb (12.0 - 16.0 G/DL) 9.1 L Hct (37 - 47 %) 27.6 L MCV (81.0 - 99.0 FL) 87.6 MCH (27.0 - 31.0 PG) 28.9 RDW (11.5 - 14.5 %) 18.4 H Plt Count (130 - 400 /CUMM) 335 MPV (7.4 - 10.4 FL) 8.7 Gran % (42.2 - 75.2 %) 62.5 Lymphocytes % (20.5 - 51.1 %) 28.2 Monocytes % (1.7 - 9.3 %) 7.3 Eosinophils % (0 - 5 %) 1.7 Basophils % (0.0 - 2.0 %) 0.3 Absolute Granulocytes (1.4 - 6.5 /CUMM) 5.1 Absolute Lymphocytes (1.2 - 3.4 /CUMM) 2.3 Absolute Monocytes (0.10 - 0.60 /CUMM) 0.6 Absolute Eosinophils (0.0 - 0.7 /CUMM) 0.1 Absolute Basophils (0.0 - 0.2 /CUMM) 0 PUBS MCHC (33.0 - 37.0 G/DL) 33.0 Urines Urine Color (YEL,AMB,STR) YEL Urine Clarity (CLEAR) CLDY H Urine pH (5.0 - 8.0) 6.0 Ur Specific [place] (1.001 - 1.035) 1.010 Urine Protein (NEG,<30 MG/DL) 100 H Urine Ketones (NEG) NEG Urine Nitrite (NEG) NEG Urine Bilirubin (NEG) NEG@ICTO Urine Urobilinogen (0.1 - 1.0 EU/dl) 0.2 Ur Leukocyte Esterase (NEG) TRACE H Ur Microscopic SEDIMENT EXAMINED Urine RBC (0 - 5 /HPF) PACKD H Urine WBC (0 - 2 /HPF) 3-5 H Ur Epithelial Cells (NONE,FEW) RARE Urine Bacteria (NEG/NONE) MANY H Urine Mucus (FEW,NONE) RARE Urine Hemoglobin (NEG) LARGE H Urine Glucose (N MG/DL) NEG Assessment/Plan Assessment/Plan 70-year-old woman with a past medical history of diabetes mellitus, breast cancer (currently undergoing chemotherapy treatment), and a recent admission to our hospital one week ago for a pulmonary embolism (discharged on Eliquis). He presents with worsening dyspnea and lower extremity edema. An initial BNP was elevated at 1100, echocardiogram demonstrated a mild cardiomyopathy and moderate mitral regurgitation. Acute congestive heart failure: The patient likely has multifactorial etiologies for her dyspnea; however, as well as acute congestive heart failure from an overall diastolic dysfunction. At this time, continue to diurese her with Lasix. We will continue her regimen of beta blockade as well as angiotensin receptor blockers. A further workup of her cardiomyopathy will be undertaken, and further recommendations regarding her mitral regurgitation will be made following further evaluation. Mitral regurgitation: The patient has evidence of mitral regurgitation of moderate degree. This may be secondary to her underlying cardiomyopathy. Cardiomyopathy: The patient has a mild cardiomyopathy of unclear etiology. She'll require nuclear stress testing to exclude a potential underlying ischemic etiology (may be performed as an outpatient). The possibility of this being present secondary to nonischemic etiologies including chemotherapy exist as well. We will follow this closely and attempt to maximize her medical regimen of beta blockade and angiotensin receptor blockers. Breasts CA: Continue treatment as per oncology. We will follow her LV function. Thank you for allowing us to participate in the care of your patient. Please do not hesitate to contact us further with any questions. Sincerely, James Scott MD [facility] Consult Acknowledgment - Thank you for your consult request.
== END 2016-09-11 15:20 | DRG 293 ==
LOC: ERH 10:16 → 1NO 15:29 → ERHI 15:29 → ENRESERV 16:47 → ENTRNSPT 17:43 → 1NO 18:15 → CMPTRNSPT 18:18 → 1NO 23:24
PROVIDERS: Emergency Medicine; Student in an Organized Health Care Education/Training Program; ADMIT Internal Medicine
DX: I11.0 Hypertensive heart disease with heart failure (principal); I42.9 Cardiomyopathy, unspecified; C50.912 Malignant neoplasm of unspecified site of left female breast; Z92.21 Personal history of antineoplastic chemotherapy; E78.5 Hyperlipidemia, unspecified; M79.7 Fibromyalgia; E11.9 Type 2 diabetes mellitus without complications; Z79.84 Long term (current) use of oral hypoglycemic drugs; F41.9 Anxiety disorder, unspecified; Z86.711 Personal history of pulmonary embolism; Z79.01 Long term (current) use of anticoagulants; I34.0 Nonrheumatic mitral (valve) insufficiency; I50.31 Acute diastolic (congestive) heart failure; R09.02 Hypoxemia; I49.3 Ventricular premature depolarization
CPT/HCPCS: 1NP; 81001; 82436; 93005; 93010; 93306; 96374; J1940

== ENCOUNTER 2016-09-20 17:50 | Emergency (ER) | payer OTHER ==
[~2016-09-20] VITALS: Ht 162.6 cm; Wt 87.1 kg
[~2016-09-20 17:50] MED LIST changes: +LASIX40 M1 PO
[2016-09-20 18:25] LABS: ABSOLUTE BASOPHIL COUNT 0 /CUMM (0.0-0.2); ABSOLUTE EOSINOPHIL COUNT 0.1 /CUMM (0.0-0.7); ABSOLUTE GRANULOCYTE CT 4.9 /CUMM (1.4-6.5); ABSOLUTE LYMPH COUNT 1.6 /CUMM (1.2-3.4); ABSOLUTE MONOCYTE COUNT 0.1 /CUMM (0.10-0.60); BASOPHIL % 0.3 % (0.0-2.0); EOSINOPHIL % 1.8 % (0-5); GRANULOCYTE % 72.2 % (42.2-75.2); HEMATOCRIT 29.6 % (37-47); MEAN CORPUSCULAR HGB 28.9 PG (27.0-31.0); MEAN CORPUSCULAR HGB CONC 33.2 G/DL (33.0-37.0); MEAN CORPUSCULAR VOLUME 87.1 FL (81.0-99.0); MEAN PLATELET VOLUME 8.9 FL (7.4-10.4); PLATELET COUNT 327 /CUMM (130-400); WHITE BLOOD CELL COUNT 6.7 /CUMM (4.8-10.8)
--- NOTE | 2016-09-20 18:40 | ED CARDIAC/CP/PALPITATIONS ---
History of Present Illness General Chief Complaint: Dyspnea (COPD, CHF, Other) Stated Complaint: PT IS SOB AND PRESSURE IN THE CHEST Source: patient, family, old records Exam Limitations: no limitations Vital Signs & Intake/Output Vital Signs & Intake/Output Vital Signs Date Time Temp Pulse Resp B/P B/P Pulse O2 O2 Flow FiO2 Mean Ox Delivery Rate 09/20 2256 97.3 88 16 106/53 Room Air 09/20 2016 97.1 99 18 116/72 100 Room Air 09/20 1840 98 Room Air 09/20 1804 97.3 92 20 119/75 99 Room Air Room Air Allergies Coded Allergies: No Known Allergies (06/08/16) Reconcile Medications Apixaban (Eliquis) 5 MG TABLET 1 TAB PO BID PE .START THIS MEDICATION ON 09/10/16 Aspirin (Ecotrin*) 81 MG TABLET. 1 TAB PO DAILY heart health (Reported) Escitalopram Oxalate 20 MG TABLET 1 TAB PO DAILY ANXIETY / DEPRESSION ( Reported) Furosemide (Lasix) 20 MG TABLET 1 TAB PO DAILY DIURETIC (Reported) Meloxicam 15 MG TABLET 1 TAB PO DAILY PAIN/INFLAMMATION (Reported) Metformin HCl 1,000 MG TABLET 1 TAB PO BID DM . Metoprolol Succinate (Unknown Strength) TAB (Unknown Dose) PO DAILY HEART/BP (Reported) Milnacipran HCl (Savella) 25 MG TABLET 1 TAB PO BID PAIN (Reported) Multivitamin (Daily Multiple Vitamin) 1 EACH TABLET 1 TAB PO DAILY supplement (Reported) Nebivolol HCl (Bystolic) 10 MG TABLET 1 TAB PO DAILY BP (Reported) Simvastatin (Simvastatin*) 40 MG TABLET 1 TAB PO QPM CHOLESTEROL (Reported) Valsartan 160 MG TABLET 1 TAB PO DAILY HTN (Reported) Zolpidem Tartrate 5 MG TABLET 1 TAB PO QPMP INSOMNIA (Reported) Triage Note: PT TO ED FOR C/C OF SOB, WEAKNESS AND CHEST PRESSURE. RECENTLY DISCHARGED FROM HERE LAST WEDNESDAY FOR CHF. DR. GARCIA DECREASED LASIX DOSE AND PT HAS BEEN HAVING INCREASED DIFFICULTY BREATHING. NO ACUTE DISTRESS NOTED. PER SISTER, PT ALSO GOT DEXAMETHASONE BEFORE HER CHEMO ON WEDNESDAY MORNING AND HER BLOOD SUGARS HAVE BEEN HIGH. DENIES NAUSEA OR VOMITING. +INCREASED THIRST. O2 99%, F/S 152 IN TRIAGE. Triage Nurses Notes Reviewed? yes HPI: 70F PMH HTN, HLD, fibromyalgia, diabetes mellitus, and stage IB breast cancer s/ p 4 cycles of AC, partial mastectomy, and currently on paclitaxel with trastuzumab with dexamethasone, recently diagnosed with bilateral pulmonary embolism now on Eliquis, recent admission for CHF, presenting with 2 days of fatigue, progressive dyspnea on exertion, and shortness of breath at rest. Discharged a week ago after being diuresed, saw her vehicle detailer's HAND BULLDOZER on Monday 09/18, where she was started on Metoprolol and had her Lasix decreased from 40mg to 20mg. SInce then, she has become more fatigued and difficulty breathing, becoming more somnolent. She also reports chest heaviness, but describes it as a difficulty taking a deep breath. Denies palpitations, chest pain, abdominal pain, lightheadedness, diaphoresis, diarrhea, dysuria, cough, fever, chills, n/v, lower extremity edema. (YESSICA MONTALVO MD) Past History Travel History Traveled to [place] past 21 day No Medical History Any Pertinent Medical History? see below for history Neurological: NONE EENT: NONE Cardiovascular: NONE Respiratory: NONE Gastrointestinal: NONE Hepatic: NONE Renal: NONE Musculoskeletal: FIBROMYALGIA Psychiatric: NONE Endocrine: diabetes Blood Disorders: NONE Cancer(s): breast cancer INFANT BABYSITTER/Reproductive: NONE History of MRSA: No History of VRE: No History of CDIFF: No Surgical History Surgical History: LUMPECTOMY LEFT BREAST Psychosocial History Who do you live with Patient/Self What is your primary language Maori Tobacco Use: Never used ETOH Use: denies use Illicit Drug Use: denies illicit drug use Family History Family History, If Any: Relation not specified for: FHx: uterine cancer (YESSICA MONTALVO MD) Family History Hx Contributory? No (YUN GO,SANTOS Laboy) Review of Systems Review of Systems Constitutional: Reports: no symptoms. EENTM: Reports: no symptoms. Respiratory: Reports: see HPI. Cardiovascular: Reports: see HPI. GI: Reports: no symptoms. Genitourinary: Reports: no symptoms. Musculoskeletal: Reports: no symptoms. Skin: Reports: no symptoms. Neurological/Psychological: Reports: no symptoms. Hematologic/Endocrine: Reports: no symptoms. Immunologic/Allergic: Reports: no symptoms. All Other Systems: Reviewed and Negative (YESSICA MONTALVO MD) Physical Exam Physical Exam General Appearance: well developed/nourished, alert, awake, sleepy Head: atraumatic, normal appearance Eyes: Bilateral: normal appearance. Ears, Nose, Throat: moist mucus membranes Neck: normal inspection, supple, full range of motion Respiratory: bibasilar crackles Cardiovascular: regular rate/rhythm Peripheral Pulses: 2+ tibialis posterior (R), 2+ tibialis posterior (L) Extremities: normal inspection, normal range of motion, no edema Neurologic/Psych: awake, alert, oriented x 3, normal mood/affect Skin: intact, normal color, warm/dry (KATIA GO,YESSICA) Core Measures ACS in differential dx? No Severe Sepsis Present: No Septic Shock Present: No (YUN GO,SANTOS Laboy) Progress Differential Diagnosis: AMI, aortic dissection, atrial fibrillation, cholecystitis, CHF/pulm edema, costochondritis, hyperkalemia, hypovolemia, hyperthyroid, hyperventilation, intracranial hemorrhage, musculoskeletal pain, myocarditis, pancreatitis, pericarditis, pneumonia, pneumothorax, PSVT, pulmonary embolism, PUD/GERD, PVCs/PACs, respiratory failure, rib fracture, sepsis, unstable angina, V-fib/V-Tach, WPW syndrome Plan of Care: Orders Procedure Date/time Status TROPONIN LEVEL 09/20 2199 Complete EKG 09/20 2199 Active Add-on Test (ER Only) 09/20 183 Active B-TYPE NATRIURETIC PEP (BNP) 09/21 1815 Complete TROPONIN LEVEL 09/20 175 Complete COMPREHENSIVE METABOLIC PANEL 09/20 175 Complete CBC WITHOUT DIFFERENTIAL 09/20 1752 Complete EKG 09/20 175 Active Laboratory Tests 09/20/162204: Troponin I < 0.01 09/20/16 181: Anion Gap 11, Estimated GFR > 60, BUN/Creatinine Ratio 27.1 H, Glucose 130 H, Calcium 9.1, Total Bilirubin 0.5, AST 23, ALT 42, Alkaline Phosphatase 108, Troponin I 0.01, Qdb-E-Ciohqfjhffa Pept 1280 H, Total Protein 5.7 L, Albumin 3.8, Globulin 1.9, Albumin/Globulin Ratio 2.0, CBC w Diff NO MAN DIFF REQ, RBC 3.40 L, MCV 87.1, MCH 28.9, RDW 17.0 H, MPV 8.9, Gran % 72.2, Lymphocytes % 24.2, Monocytes % 1.5 L, Eosinophils % 1.8, Basophils % 0.3, Absolute Granulocytes 4.9, Absolute Lymphocytes 1.6, Absolute Monocytes 0.1 L, Absolute Eosinophils 0.1, Absolute Basophils 0, PUBS MCHC 33.2 Diagnostic Imaging: Viewed by Me: Radiology Read. Discussed w/RAD: Radiology Read. Radiology Impression: PATIENT: NATALEE SWENSON PRESENT AGE: 70 PATIENT ACCOUNT NO: [id number] : 46 LOCATION: [facility] ORDERING PHYSICIAN: YESSICA MONTALVO MD SERVICE DATE: 09/20/16 EXAM TYPE : RAD - XRY-CHEST XRAY, PA AND LATERAL EXAMINATION: CHEST 2 VIEWS CLINICAL INFORMATION: BIBASILAR CRACKLES. COMPARISON: 09/01/2016. TECHNIQUE: PA and lateral views of the chest were obtained. FINDINGS: The lungs are well expanded. No focal infiltrate, effusion, edema, or pneumothorax. Cardiac and mediastinal silhouettes are within normal limits for technique. Right-sided chest port with tip near the cavoatrial junction. Surgical clips seen in the left breast tissue. No acute bony abnormality seen IMPRESSION: Chronic appearing changes as described. Overall the appearance is similar to the recent chest x-ray DICTATED BY: JOSE LUIS NORMAN MD DATE/TIME DICTATED:09/20/161848 SOIL SURVEYOR: NANETTE DATE/TIME TRANSCRIBED:09/20/161848 CONFIDENTIAL, DO NOT COPY WITHOUT APPROPRIATE AUTHORIZATION. <Electronically signed in Other Vendor System> SIGNED BY: JOSE LUIS NORMAN MD 09/20/16 185 Initial ED EKG: normal QRS complex, no ST T wave changes Prior EKG: unchanged (KATIA GO,YESSICA) CXR Impression: PATIENT: NATALEE SWENSON PRESENT AGE: 70 PATIENT ACCOUNT NO: [id number] : 46 LOCATION: ER ORDERING PHYSICIAN: YESSICA MONTALVO MD SERVICE DATE: 09/20/16 EXAM TYPE: RAD - XRY-CHEST XRAY, PA AND LATERAL EXAMINATION: CHEST 2 VIEWS CLINICAL INFORMATION: BIBASILAR CRACKLES. COMPARISON: 09/01/2016. TECHNIQUE: PA and lateral views of the chest were obtained. FINDINGS: The lungs are well expanded. No focal infiltrate, effusion, edema, or pneumothorax. Cardiac and mediastinal silhouettes are within normal limits for technique. Right-sided chest port with tip near the cavoatrial junction. Surgical clips seen in the left breast tissue. No acute bony abnormality seen IMPRESSION: Chronic appearing changes as described. Overall the appearance is similar to the recent chest x-ray DICTATED BY: JOSE LUIS NORMAN MD DATE/TIME DICTATED:09/20/161848 SOIL SURVEYOR:NANETTE DATE/TIME TRANSCRIBED:09/20/161848 CONFIDENTIAL, DO NOT COPY WITHOUT APPROPRIATE AUTHORIZATION. <Electronically signed in Other Vendor System> SIGNED BY: JOSE LUIS NORMAN MD 09/20/16 9512 Repeat EKG: unchanged Comments: Patient signed out to me by Dr. Montalvo. repeat ekg and trop pending. 09/20/2016 11:29:07 PM patient feels well at this point and wishes to go home. I have updated her on test results. I feel she is stable for follow-up with her primary care physician or vehicle detailer. (YUN GO,SANTOS Laboy) Departure Departure Condition: Stable Referrals: DENICE KRISHNA MD (PCP/Family) Departure Forms: Customer Survey General Discharge Information (KATIA GO,YESSICA) Departure Disposition: HOME OR SELF CARE Clinical Impression Primary Impression: Fluid overload Qualifiers: Hypervolemia type: unspecified Qualified Code: E87.70 - Fluid overload, unspecified Secondary Impressions: Dyspnea on exertion, Hypokalemia Additional Instructions: FOLLOW UP WITH YOUR ATHLETIC INSTRUCTOR OR PRIMARY CARE PHYSICIAN TOMORROW. CONTINUE CURRENT MEDICATIONS PRESCRIBED. Avoid exertion. Return if any concerns or sudden worsening. Please note that there might be incidental findings in your evaluation that are unrelated to the current emergency department visit. Please notify your primary care doctor about this emergency department visit in order to obtain and review all of the testing performed so that these incidental findings can be monitored as needed. If you had an x-ray performed, please understand that some fractures may not be seen on the initial set of x-rays. If your symptoms persist you might need a repeat set of x-rays to check for such a fracture. If you had a laceration evaluated, please understand that foreign bodies such as glass or wood may not be visible to the naked eye or on plain x-rays. If the wound becomes red, swollen, increasingly more painful or if there is any drainage from the wound, please have it reevaluated by a physician for the possibility of a retained foreign body. Thank you for choosing the [facility] Emergency Department for your care. It was a pleasure to serve you today. Santos Romero M.D. [facility] (YUN GO,SANTOS Laboy) Critical Care Note Critical Care Note Critical Care Time: non-applicable (YUN GO,SANTOS Laboy)
[2016-09-20] MEDS ORDERED: LASIX20 M1 PO (18:45)
[2016-09-20] MEDS ORDERED: METOPROLOL SUCC25 M1 PO (18:47)
--- NOTE | 2016-09-20 18:54 | RADIOLOGY REPORT ---
EXAMINATION: CHEST 2 VIEWS CLINICAL INFORMATION: BIBASILAR CRACKLES. COMPARISON: 09/01/2016. TECHNIQUE: PA and lateral views of the chest were obtained. FINDINGS: The lungs are well expanded. No focal infiltrate, effusion, edema, or pneumothorax. Cardiac and mediastinal silhouettes are within normal limits for technique. Right-sided chest port with tip near the cavoatrial junction. Surgical clips seen in the left breast tissue. No acute bony abnormality seen IMPRESSION: Chronic appearing changes as described. Overall the appearance is similar to the recent chest x-ray
[2016-09-20 22:56] VITALS: BP 106/53
== END 2016-09-20 23:35 ==
LOC: ERH 17:50
PROVIDERS: Emergency Medicine
DX: E87.70 Fluid overload, unspecified (principal); E87.6 Hypokalemia; R07.89 Other chest pain
CPT/HCPCS: 93005; 93010; 96374; J1940

== ENCOUNTER 2017-09-06 19:00 | Inpatient (IN) | payer OTHER ==
[~2017-09-06] VITALS: Ht 162.6 cm; Wt 85.3 kg
[~2017-09-06 19:00] MED LIST changes: +AMOXICILLIN875 M1 PO; +BIOTIN2500 MCG PO; +DIOVAN80 M1 PO; +JANUVIA50 M1 PO; +LASIX20 M1 PO; +METOPROLOL SUCC25 M1 PO
[2017-09-06 19:28] LABS: ABSOLUTE BASOPHIL COUNT 0 /CUMM (0.0-0.2); ABSOLUTE EOSINOPHIL COUNT 0.2 /CUMM (0.0-0.7); ABSOLUTE GRANULOCYTE CT 4.7 /CUMM (1.4-6.5); ABSOLUTE LYMPH COUNT 0.9 /CUMM (1.2-3.4); ABSOLUTE MONOCYTE COUNT 0.4 /CUMM (0.10-0.60); BASOPHIL % 0.1 % (0.0-2.0); EOSINOPHIL % 2.7 % (0-5); GRANULOCYTE % 76.4 % (42.2-75.2); HEMATOCRIT 24.9 % (37-47); MEAN CORPUSCULAR HGB 29.3 PG (27.0-31.0); MEAN CORPUSCULAR HGB CONC 33.7 G/DL (33.0-37.0); MEAN CORPUSCULAR VOLUME 86.9 FL (81.0-99.0); MEAN PLATELET VOLUME 8.6 FL (7.4-10.4); PLATELET COUNT 301 /CUMM (130-400); RBC DISTRIBUTION WIDTH 13.5 % (11.5-14.5); RED BLOOD CELL CT 2.87 /CUMM (4.20-5.40); WHITE BLOOD CELL COUNT 6.2 /CUMM (4.8-10.8)
--- NOTE | 2017-09-06 19:39 | ED GENERAL ADULT ---
History of Present Illness General Chief Complaint: Chest Pain Stated Complaint: SIB PCP, CP X3 DAYS Source: patient Exam Limitations: no limitations Vital Signs & Intake/Output Vital Signs & Intake/Output Vital Signs Date Time Temp Pulse Resp B/P B/P Pulse O2 O2 Flow FiO2 Mean Ox Delivery Rate 09/061 98.0 106 18 111/53 99 Room Air 09/06 1916 97.8 118 17 120/74 100 Room Air Allergies Coded Allergies: No Known Allergies (06/10/17) Reconcile Medications Amoxicillin 875 MG TABLET 1 TAB PO BID ABX (Reported) Apixaban (Eliquis) 5 MG TABLET 1 TAB PO BID PE .START THIS MEDICATION ON 09/10/16 Aspirin (Ecotrin*) 81 MG TABLET.DR 1 TAB PO DAILY heart health (Reported) Biotin (Unknown Strength) CAPSULE (Unknown Dose) PO DAILY SUPPLEMENT ( Reported) Escitalopram Oxalate 20 MG TABLET 1 TAB PO DAILY ANXIETY / DEPRESSION ( Reported) Furosemide (Lasix) 20 MG TABLET 1 TAB PO DAILY DIURETIC (Reported) Meloxicam 15 MG TABLET 1 TAB PO DAILY PAIN/INFLAMMATION (Reported) Metformin HCl 1,000 MG TABLET 1 TAB PO BID DM . Milnacipran HCl (Savella) 25 MG TABLET 1 TAB PO BID PAIN (Reported) Multivitamin (Daily Multiple Vitamin) 1 EACH TABLET 1 TAB PO DAILY supplement (Reported) Simvastatin (Simvastatin*) 40 MG TABLET 1 TAB PO QPM CHOLESTEROL (Reported) Sitagliptin Phosphate (Januvia) 50 MG TABLET 1 TAB PO DAILY DM (Reported) Valsartan (Diovan) 80 MG TABLET 1 TAB PO DAILY BP (Reported) Triage Note: PT TO ED WITH C/O ACUTE ON CHRONIC SOB X 1 YEAR. RECENTLY EXPERIENCING FEELING OF PALPITATIONS AND CHEST DISCOMFORT. Triage Nurses Notes Reviewed? yes Onset: Abrupt Duration: week(s): Timing: recent history HPI: 09/06/17 8:18 PM 71-year-old female presents to the emergency department with shortness of breath on exertion. She says she status post radiation and chemotherapy for left-sided breast cancer. She says she status post lumpectomy. This was several months ago. Since then she's had intermittent shortness of breath on exertion. Over the past 2 weeks it has gotten worse. Triage note appreciated but she denies having any chest pain on my exam and history. Past History Travel History Traveled to [place] past 21 day No Medical History Any Pertinent Medical History? 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 No Review of Systems Review of Systems Constitutional: Denies: fever. EENTM: Denies: visual changes. Respiratory: Reports: short of breath. Denies: cough. Cardiovascular: Denies: chest pain. GI: Denies: abdominal pain. Genitourinary: Reports: no symptoms. Musculoskeletal: Reports: no symptoms. Skin: Reports: no symptoms. Neurological/Psychological: Reports: no symptoms. Hematologic/Endocrine: Reports: no symptoms. Immunologic/Allergic: Reports: no symptoms. Physical Exam Physical Exam General Appearance: well developed/nourished, alert, awake, anxious, mild distress Head: atraumatic, normal appearance Eyes: Bilateral: normal appearance, PERRL, EOMI. Ears, Nose, Throat: normal pharynx, normal ENT inspection Neck: normal inspection, supple, full range of motion Respiratory: normal breath sounds, chest non-tender, no respiratory distress Cardiovascular: regular rate/rhythm Peripheral Pulses: 4+ radial (R), 4+ radial (L) Gastrointestinal: soft, non-tender Back: normal range of motion Extremities: normal inspection, no edema Neurologic/Psych: no motor/sensory deficits, awake, alert, oriented x 3 Skin: intact, normal color, warm/dry Core Measures ACS in differential dx? No CVA/TIA Diagnosis: No Sepsis Present: No Sepsis Focused Exam Completed? No Progress Differential Diagnoses I considered the following diagnoses in my evaluation of the patient: [ Idiopathic pulmonary fibrosis, acute coronary syndrome, pneumonia, pulmonary embolism, congestive heart failure] Plan of Care: Orders Procedure Date/time Status TROPONIN LEVEL 09/06 2224 Active EKG 09/06 2224 Active Add-on Test (ER Only) 09/06 2000 Active D-DIMER 09/06 1918 Complete TROPONIN LEVEL 09/07 1915 Complete CBC WITHOUT DIFFERENTIAL 09/07 1915 Complete BASIC METABOLIC PANEL 09/07 1915 Complete EKG 09/06 1900 Active Laboratory Tests 09/06/171918: Anion Gap 12, Estimated GFR 40 L, BUN/Creatinine Ratio 23.8, Glucose 148 H, Calcium 9.6, Troponin I < 0.01, D-Dimer High Sensitivty < 200, CBC w Diff NO MAN DIFF REQ, RBC 2.87 L, MCV 86.9, MCH 29.3, MCHC 33.7, RDW 13.5, MPV 8.6, Gran % 76.4 H, Lymphocytes % 15.1 L, Monocytes % 5.7, Eosinophils % 2.7, Basophils % 0.1, Absolute Granulocytes 4.7, Absolute Lymphocytes 0.9 L, Absolute Monocytes 0.4, Absolute Eosinophils 0.2, Absolute Basophils 0 Initial ED EKG: sinus tachycardia, age-indeterminate inferior wall GA, nonspecific ST-T wave abnormality Prior EKG: changed Departure Departure Disposition: STILL A PATIENT Condition: Stable Clinical Impression Primary Impression: Acute electrocardiogram changes Secondary Impressions: Dyspnea Referrals: Ana GO,Rizwan Mccollum (PCP/Family) Departure Forms: Customer Survey General Discharge Information Admission Note Spoke With: Tereza Lennon MD Documentation of Exam: Documentation of any treatments & extenuating circumstances including Concerns Regarding Discharge (functional status, medication knowledge or non-compliance, living conditions, etc.) that warrant an admission rather than observation: [ Patient with progressive dyspnea on exertion. Nonspecific but unchanged EKG, spoke with Dr. Travis who recommended serial troponins and echocardiogram., Telemetry monitoring, serial EKGs] Critical Care Note Critical Care Note Critical Care Time: non-applicable
--- NOTE | 2017-09-06 20:33 | RADIOLOGY REPORT ---
EXAMINATION: XR PORTABLE CHEST CLINICAL INFORMATION: SOB. COMPARISON: CTA chest 06/10/2017. TECHNIQUE: Portable frontal view of the chest was obtained. FINDINGS: No significant abnormality is noted involving the heart, lungs, mediastinum, bony thorax or soft tissues. IMPRESSION: Unremarkable chest examination.
[2017-09-06] MEDS ORDERED: DIOVAN160 MG PO (21:50)
[2017-09-06] MEDS ORDERED: ZOMIG5 M2 PO (21:51)
--- NOTE | 2017-09-06 22:49 | History & Physical ---
FaviolazackVirgiliojaswinder 09/06/17 5369: General Information and HPI MD Statement: I have seen and personally examined NATALEE SWENSON and documented this H&P. The patient is a 71 year old F who presented with a patient stated chief complaint of [CHEST PAIN]. Source of Information: patient Exam Limitations: no limitations History of Present Illness: This is a 71-year-old female with past medical history of stage Ia breast cancer status post lumpectomy, chemotherapy and radiation, currently in remission, fibromyalgia, gen-atowjpb-zxvjktofd diabetes mellitus, previous pulmonary emboli on Eliquis, depression on Lexapro, heart failure with reduced EF, hypertension, fibromyalgia,HL,depression on lexapro came in with chief complaint of worsening shortness of breath since 2 weeks prior to presentation. Apparently the patient was doing all right when she felt extremely tired and fatigued since last few weeks, followed up with her primary care doctor Dr. Perez, had a routine blood work,but she continued to feel worsening shortness of breath associated with some chest discomfort on exertion ans her heart racing while walking the stairs up and down. 2 days prior to today's presentation, on Wednesday the entire day she experienced diarrhea and vomiting. She had 5-6 episodes of loose watery bowel movement, no blood along with some dry heaving. She was not able to take anything by mouth due to inability to tolerate, however these episodes of diarrhea and vomiting were self-limiting and she was better the next day. The shortness of breath however continued to worsen and therefore she presented to [facility]. Of note she was diagnosed with stage Ia breast cancer, had radiation in October 2016 and was treated with chemotherapy with paclitaxel and trastuzumab, s/p lumpectomy follows with Dr. Tillman, now in remission. She was also found to have pulmonary emboli and was started on Eliquis. She had a recent nuclear stress test as outpatient with Dr. Oleg Liriano( approx 6 months back) which according to her was found to be within normal limits. As per her most of her issues like diabetes mellitus, shortness of breath, worsening kidney injury, generalized tiredness and fatigue mostly has been after the recent chemo and radiation and she thinks that these are all side effects from the chemotherapy. She has chronic anemia, however does not endorse any history of bloody bowel movement or hemoptysis or any acute blood loss. She denies any fever, congestion, recent infection, swelling of the feet, abdominal pain, no more diarrhea or constipation, denies any chest pain. Allergies/Medications Allergies: Coded Allergies: No Known Allergies (06/10/17) Home Med list Apixaban (Eliquis) 5 MG TABLET 1 TAB PO BID PE .START THIS MEDICATION ON 09/10/16 Aspirin (Ecotrin*) 81 MG TABLET.DR 1 TAB PO DAILY heart health (Reported) Biotin (Unknown Strength) CAPSULE (Unknown Dose) PO DAILY SUPPLEMENT ( Reported) Escitalopram Oxalate 20 MG TABLET 1 TAB PO DAILY ANXIETY / DEPRESSION ( Reported) Furosemide (Lasix) 20 MG TABLET 1 TAB PO DAILY DIURETIC (Reported) Meloxicam 15 MG TABLET 1 TAB PO DAILY PAIN/INFLAMMATION (Reported) Metformin HCl 1,000 MG TABLET 1 TAB PO BID DM . Milnacipran HCl (Savella) 25 MG TABLET 1 TAB PO BID PAIN (Reported) Multivitamin (Daily Multiple Vitamin) 1 EACH TABLET 1 TAB PO DAILY supplement (Reported) Simvastatin (Simvastatin*) 40 MG TABLET 1 TAB PO QPM CHOLESTEROL (Reported) Sitagliptin Phosphate (Januvia) 50 MG TABLET 1 TAB PO DAILY DM (Reported) Valsartan (Diovan) 160 MG TABLET 1 TAB PO DAILY HTN (Reported) Zolpidem Tartrate 5 MG TABLET 1 TAB PO QPMP insominia (Reported) Compliance With Home Meds: FAIR Past History Travel History Traveled to [place] past 21 day No Medical History Neurological: NONE EENT: NONE Cardiovascular: CHF Respiratory: pulmonary embolism Gastrointestinal: NONE Hepatic: NONE Renal: NONE Musculoskeletal: FIBROMYALGIA Psychiatric: NONE Endocrine: diabetes Blood Disorders: NONE 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 Home Who Do You Live With? spouse Primary Language: Faroese Smoking Status: Never Smoked ETOH Use: denies use Functional Ability ADLs Independent: dressing, eating, toileting, bathing. Ambulation: independent IADLs Independent: shopping, housework, finances, food prep, telephone, transportation , medication admin. Review of Systems Review of Systems Constitutional: Reports: malaise, weakness. Denies: chills, diaphoresis, fever. EENTM: Denies: blurred vision, double vision, visual changes, eye pain. Cardiovascular: Reports: orthopena, palpitations. Denies: chest pain, edema, peripheral edema, syncope. Respiratory: Reports: orthopnea, short of breath. Denies: cough, hemoptysis, sputum production, stridor, wheezing. GI: Reports: diarrhea, melena, vomiting. Denies: abdominal pain, bloating, constipation, distention, bowel incontinence, nausea, bloody stool, changes in stool. Genitourinary: Denies: discharge, dysuria, frequency, hematuria. Musculoskeletal: Denies: back pain, gout, joint pain, muscle pain. Skin: Reports: no symptoms. Neurological/Psychological: Reports: no symptoms. Hematologic/Endocrine: Reports: no symptoms. Immunologic/Allergic: Reports: no symptoms. All Other Systems: Reviewed and Negative Exam & Diagnostic Data Last 24 Hrs of Vital Signs/I&O Vital Signs Date Time Temp Pulse Resp B/P B/P Pulse O2 O2 Flow FiO2 Mean Ox Delivery Rate 09/07 0020 98.8 108 18 118/80 99 Room Air 09/06 2304 97.7 108 18 114/53 98 Room Air 09/06 2111 98.0 106 18 111/53 99 Room Air 09/06 1917 97.8 118 17 120/74 100 Room Air Intake & Output 09/07 0800 09/07 0000 09/06 1600 Intake Total 0 Output Total Balance 0 Intake, Oral 0 Patient 80.739 kg Weight Weight Reported by Patient Measurement Method Physical Exam General Appearance Alert, Oriented X3, Cooperative, No Acute Distress Skin No Rashes, No Breakdown, No Significant Lesion Skin Temp/Moisture Exam: Warm/Dry HEENT Atraumatic, PERRLA, EOMI Neck Supple, No JVD Cardiovascular Normal S1, Normal S2, No Murmurs Lungs Clear to Auscultation, Normal Air Movement Abdomen Normal Bowel Sounds, Soft, No Tenderness Neurological Strength at 5/5 X4 Ext, Normal Tone, Sensation Intact Extremities No Clubbing, No Cyanosis, No Edema, Normal Pulses Vascular Normal Pulses Last 24 Hrs of Labs/Tio: Laboratory Tests 09/06/177: Troponin I < 0.01 09/06/171918: Anion Gap 12, Estimated GFR 40 L, BUN/Creatinine Ratio 23.8, Glucose 148 H, Calcium 9.6, Magnesium 1.8, Iron 47, TIBC 360, Ferritin 24.4, Troponin I < 0.01, Tru-V-Cbncpypptrz Pept 44.5, Vitamin B12 Pending, Folate Pending, TSH 3.440, Free T4 1.13, D-Dimer High Sensitivty < 200, CBC w Diff NO MAN DIFF REQ, RBC 2.87 L, MCV 86.9, MCH 29.3, MCHC 33.7, RDW 13.5, MPV 8.6, Gran % 76.4 H, Lymphocytes % 15.1 L, Monocytes % 5.7, Eosinophils % 2.7, Basophils % 0.1, Absolute Granulocytes 4.7, Absolute Lymphocytes 0.9 L, Absolute Monocytes 0.4, Absolute Eosinophils 0.2, Absolute Basophils 0 Diagnostic Data EKG Results Sinus tachycardia, no ST-T wave changes, rate of 114, QTC of 441 CXR Results SERVICE DATE: 09/06/17 EXAM TYPE: RAD - XRY-PORTABLE CHEST XRAY EXAMINATION: XR PORTABLE CHEST CLINICAL INFORMATION: SOB. COMPARISON: CTA chest 06/10/2017. TECHNIQUE: Portable frontal view of the chest was obtained. FINDINGS: No significant abnormality is noted involving the heart, lungs, mediastinum, bony thorax or soft tissues. IMPRESSION: Unremarkable chest examination. Other Results SERVICE DATE: 09/06/17 EXAM TYPE: CAT - CT CHEST WO IV CONTRAST EXAMINATION: CT CHEST WITHOUT CONTRAST CLINICAL INFORMATION: Increasing dyspnea. Chest tightness. COMPARISON: CTA of chest 06/10/2017. 11/22/2014 TECHNIQUE: Multidetector volumetric CT imaging of the chest was done. Axial MIP volume rendering provided. Sagittal and coronal reformatted images were obtained. DLP: 228.42 mGy-cm FINDINGS: LUNGS: Pleural-parenchymal scarring at the left lung apex and involving the subpleural lung at the anterior left upper lobe. There is also linear scarring at the right lower lobe. These are stable since prior study. There is no acute abnormality. Central bronchial airways are open. No bronchiectasis. No infiltrate. MEDIASTINUM: 1.3 cm soft tissue nodule at the anterior mediastinum adjacent to the ascending aorta, axial image 140 (4). Density measurement of 34 Houn[address]field [address]. On the CT scan of 11/22/2014 this was also present measuring 2 cm previously. This has reduced in size therefore since prior study. No significant lymphadenopathy or suspicious mass. There is no pericardial effusion. PLEURA: There is no pleural effusion. No pleural mass or thickening. AXILLA: No lymphadenopathy. Surgical clips in the left breast. UPPER ABDOMEN: Unremarkable. OSSEOUS STRUCTURES: Degenerative spondylosis of spine with multilevel disc height narrowing and endplate spurring of the vertebrae. IMPRESSION: 1. No acute change of chest. 2. Diminishing size of anterior mediastinal lesion since CAT scan of 2014. No suspicious mediastinal mass or significant lymphadenopathy. Assessment/Plan Assessment: This is a 71-year-old female with past medical history of stage Ia breast cancer status post lumpectomy, chemotherapy and radiation, currently in remission, fibromyalgia, inj-rowadim-juydftfhn diabetes mellitus, previous pulmonary emboli on Eliquis, depression on Lexapro, heart failure with reduced EF, hypertension, fibromyalgia,HL,depression on lexapro came in with chief complaint of worsening shortness of breath since 2 weeks prior to presentation, exacerbated by exertion associated with some chest discomfort (now relieved), palpitations and self limiting episodes of vomiting and diarrhea along with poor p.o. intake. Vitals on presentation temperature of 98.0, pulse of 118, respiration of 18, blood pressure 120/74, she was saturating 99% on room air. Relevant labs white count of 6.2, H/H of 8.4/24.9 (baseline hemoglobin between 8.4-9.1), MCV of 86.9, sodium of 137, potassium of 4.4, BUN/creatinine 31/1.3. First set of troponin negative less than 0.01, glucose of 148, calcium of 9.6. EKG showed sinus tachycardia with no acute ST-T wave changes. Chest x-ray did not show any acute cardiopulmonary findings. D-dimer was negative however due to previous history of pulmonary emboli and sinus tachycardia CTA chest was done which did not show any evidence of pulmonary emboli, there was some evidence of 1.3 cm soft tissue nodule at the anterior mediastinum, however this was reduced in size compared to 2015. We will admit the patient to cardiac telemetry floor for continuous cardiac monitoring. #Chest pain with Shortness of breath possibly secondary to heart failure with reduced ejection fraction. * Her chest x-ray did not show any evidence of pulmonary congestion, no lower extremity edema, and her chest pain has resolved now. * temporal history of starting of intial shortness of breath after chemo and radiation. * Continue to monitor intakes and output, continue daily weight check, home dose of Lasix is 20 mg p.o, will continue * ct asprin * ct statin * Repeat echo per cardio * CTA r/o PE * serial ekg and troponin x3 * TRC nebs * ct oxygen to keep o2 sats > 92% * cardio consult with Dr Ho #Anemia, MCV 87.6 * Guaic all stools * type and cross match * follow cbc * if drops h/h, consult GI * check iron studies, b12 ,folate. # History of breast cancer s/p lumpectomy, radiation,and chemo * now in remission. # History of primary embolism * Continue home dose of eliquis 5 mg twice a day. # History of hypertension and hyperlipidemia * Continue home medications including simvastatin # history of diabetes mellitus * Hold metformin * We'll start the patient on NovoLog sliding scale * Accu-Cheks. # History of chronic back pain * Continue home dose of Savella # History of anxiety and depression * Continue home medications including Zoloft and Lexapro FC\dvp px\ Patient dropped h\h this morning, she is guaic positive - will hold aspirin and eliquis, will transfuse one unit and call GI, will change diet to clear liquid and start iv protonix As Ranked By This Provider Problem List: 1. Acute electrocardiogram changes 2. Dyspnea 3. CHF (congestive heart failure) Core Measures/Misc (12/06) Acute Coronary Syndrome ACS Diagnosis: No Congestive Heart Failure Congestive Heart Failure Diagnosis No Cerebrovascular Accident CVA/TIA Diagnosis: No VTE (View Protocol) VTE Risk Factors No risk factors No Mechanical VTE Prophylaxis d/t Early Ambulation No VTE Pharm Prophylaxis d/t Other Sepsis (View protocol) Sepsis Present: No If YES complete Sepsis Event Note If YES complete Sepsis Event Note Resident Review Statement Resident Statement: admitted by resident Saji GO, [facility] 09/07/17 0545: Core Measures/Misc (12/06) Sepsis (View protocol) If YES complete Sepsis Event Note If YES complete Sepsis Event Note Attending MD Review Statement Attending Statement Attending MD Statement: examined this patient, discuss w/resident/PA/SCRAP MATERIALS BUYER, agreed w/resident/PA/SCR[employer] MAT[employer]S BUYER, reviewed images, amended to note Attending Assessment/Plan: 71 yo F with h/o stage 1B breast cancer s/p partial mastectomy, chemo-radiation now in remission, HTN, fibromyalgia, DM, PE on Eliquis, HFrEF, with baseline exertional dyspnea, is brought in for evaluation of 2-week h/o worsening exertional dyspnea associated with chest heaviness and palpitations. Patient reports, she is winded from walking up the 5 stairs to her home or walking in between the rooms. She has felt tired and fatigued. She also reports multiple episodes of nausea, vomiting and diarrhea about 2 days prior to presentation. This resolved spontaneously. She denies hematemesis, BRBPR or melena. She has chronic anemia and her last colonoscopy was in 2015 showed polyps and diverticulosis. Patient follows with Dr. Scott, had a nulcear stress test that was normal per patient. Coreg was stopped as per Cardio recs 2 months ago. Vitals stable. Exam is benign. Labs: H/H 8.4/24.9 (baseline 8-10/ 25-29) --> 7.4 /22 this morning, D-dimer <200, BUN 31, Creat 1.3 (baseline 0.6-0.7), trop neg, proBNP normal. CXR: unremarkable. CT chest: pleural parenchymal scarring at left lung apex and involving subpleural lung at anterior left upper lobe. No infiltrate or bronchiectasis. 1.3 cm soft tissue nodule at anterior medistinum reduced in size. EKG: sinus tachycardia, subtle inferior Q waves, Qtc 455. Echo (2017): EF 45-50%, moderate inferolateral wall hypokenesis. Assessment and plan: 1. Exertional dyspnea with minimal exertion, associated with chest heaviness and palpitations 2. Rule out ACS, nonspecific EKG changes 3. Previous h/o HfrEF, not in an exacerbation, no e/o pleural effusions 4. Previous h/o PE on eliquis, D-dimer is negative 5. Acute on chronic anemia symptomatic anemia 6. History of breast cancer s/p chemoradiation 7. SHADE vs CKD - Admit to Telemetry - Watch for arrhythmias - Serial EKG and troponin - Obtain echocardiogram - Cardio consult - Get records of most recent stress test - CT suggestes pleural scarring and small anterior mediastinum mass - ?related to radiation therapy - TRC nebs - Resume home dose of lasix - Continue aspirin, statin - Consider CTA to rule out PE - Gentle hydration - Type and crossmatch - Goal Hb > 8.0 - Guaiac all stools, work up anemia with iron studies, TSH, B12, folic acid, hemolysis work up - Consult Oncology Dr. Tillman - Diabetes management - Resume all home meds DVT ppx Eliquis. Full code. Guaiac positive, hold apsirin and eliquis, start PPI and consult GI.
--- NOTE | 2017-09-06 23:55 | CT SCAN REPORT ---
EXAMINATION: CT CHEST WITHOUT CONTRAST CLINICAL INFORMATION: Increasing dyspnea. Chest tightness. COMPARISON: CTA of chest 06/10/2017. 11/22/2014 TECHNIQUE: Multidetector volumetric CT imaging of the chest was done. Axial MIP volume rendering provided. Sagittal and coronal reformatted images were obtained. DLP: 228.42 mGy-cm FINDINGS: LUNGS: Pleural-parenchymal scarring at the left lung apex and involving the subpleural lung at the anterior left upper lobe. There is also linear scarring at the right lower lobe. These are stable since prior study. There is no acute abnormality. Central bronchial airways are open. No bronchiectasis. No infiltrate. MEDIASTINUM: 1.3 cm soft tissue nodule at the anterior mediastinum adjacent to the ascending aorta, axial image 140 (4). Density measurement of 34 Houn[address]field [address]. On the CT scan of 11/22/2014 this was also present measuring 2 cm previously. This has reduced in size therefore since prior study. No significant lymphadenopathy or suspicious mass. There is no pericardial effusion. PLEURA: There is no pleural effusion. No pleural mass or thickening. AXILLA: No lymphadenopathy. Surgical clips in the left breast. UPPER ABDOMEN: Unremarkable. OSSEOUS STRUCTURES: Degenerative spondylosis of spine with multilevel disc height narrowing and endplate spurring of the vertebrae. IMPRESSION: 1. No acute change of chest. 2. Diminishing size of anterior mediastinal lesion since CAT scan of 2014. No suspicious mediastinal mass or significant lymphadenopathy.
[2017-09-07] VITALS (7 sets, daily range): BP systolic 84–122; BP diastolic 54–80
[2017-09-07] MEDS ORDERED: ZOLPIDEM TARTRAT5 M1 PO (01:04)
--- NOTE | 2017-09-07 04:58 | Admission Certification ---
Admission Certification Certification Statement - As attending physician, I certify that at the time of - admission, based on clinical presentation, severity of - symptoms, need for further diagnostic testing and - therapeutic interventions, and risk of adverse outcomes - without in-hospital treatment, in my clinical assessment, - this patient requires an acute hospital stay for a minimum - of two nights or longer. I have also considered psychsocial - factors such as support system, advanced age, financial - issues, cognitive issues, and failed out-patient treatments, - past re-admission history, safety of patient, and lack of - compliance as applicable. Specific rationale supporting this admission is: Exertional dyspnea and chest heaviness, needs admission for inpatient tele monitoring and further evaluation. Rule out ACS, work up anemia.
[2017-09-07 05:23] LABS: ABSOLUTE BASOPHIL COUNT 0 /CUMM (0.0-0.2); ABSOLUTE EOSINOPHIL COUNT 0.2 /CUMM (0.0-0.7); ABSOLUTE LYMPH COUNT 0.8 /CUMM (1.2-3.4); ABSOLUTE MONOCYTE COUNT 0.4 /CUMM (0.10-0.60); BASOPHIL % 0.5 % (0.0-2.0); EOSINOPHIL % 4.5 % (0-5); GRANULOCYTE % 67.8 % (42.2-75.2); MEAN CORPUSCULAR HGB 29.5 PG (27.0-31.0); MEAN CORPUSCULAR HGB CONC 33.6 G/DL (33.0-37.0); MEAN CORPUSCULAR VOLUME 87.6 FL (81.0-99.0); MEAN PLATELET VOLUME 8.3 FL (7.4-10.4); PLATELET COUNT 256 /CUMM (130-400); RBC DISTRIBUTION WIDTH 13.5 % (11.5-14.5); RED BLOOD CELL CT 2.51 /CUMM (4.20-5.40); WHITE BLOOD CELL COUNT 4.4 /CUMM (4.8-10.8)
--- NOTE | 2017-09-07 07:18 | PN- Housestaff ---
Sandra GO,Tish 09/07/1718: Subjective Follow-up For: 1. Exertional dyspnea with minimal exertion, associated with chest heaviness and palpitations 2. Rule out ACS, nonspecific EKG changes 3. Severe anemai 4. Guiac positive stool Tele-Events Since Last Visit: No overnight events Subjective: Patient was seen and examined at bedside, she continues to complain of exertional shortness of breath, her H&H dropped this morning will receive 1 unit of PRBCs Review of Systems Constitutional: Reports: see HPI. Objective Last 24 Hrs of Vital Signs/I&O Vital Signs Date Time Temp Pulse Resp B/P B/P Pulse O2 O2 Flow FiO2 Mean Ox Delivery Rate 09/07 0811 104 110/64 09/07 0800 96 Room Air 09/07 0711 98.1 108 18 112/74 96 09/07 0020 98.8 108 18 118/80 99 Room Air 09/07 0015 Room Air 09/06 2304 97.7 108 18 114/53 98 Room Air 09/06 2111 98.0 106 18 111/53 99 Room Air 09/06 1917 97.8 118 17 120/74 100 Room Air Intake & Output 09/07 1600 09/07 0800 09/07 0000 Intake Total 0 Output Total Balance 0 Intake, Oral 0 Patient 179 lb 178 lb Weight Weight Reported by Patient Reported by Patient Measurement Method Physical Exam General Appearance: Alert, Oriented X3, Cooperative, No Acute Distress HEENT: Atraumatic, PERRLA, EOMI, Mucous Membr. moist/pink Neck: Supple, No JVD Cardiovascular: Normal S1, Normal S2, No Murmurs Lungs: Clear to Auscultation Abdomen: Normal Bowel Sounds, Soft, No Tenderness Neurological: Normal Speech, Strength at 5/5 X4 Ext, Normal Tone, Sensation Intact, Cranial Nerves 3-12 NL, Reflexes 2+ Extremities: No Clubbing, No Cyanosis, No Edema Assessment/Plan Assessment: #Chest pain with Shortness of breath possibly secondary to heart failure with reduced ejection fraction. * Tropes and EKG ruled out ACS * Continue to monitor intakes and output, continue daily weight check, home dose of Lasix is 20 mg p.o, will continue * ct asprin-discussed with Dr. Mancera * ct statin * Repeat echo per cardio * CTA r/o PE * TRC nebs * ct oxygen to keep o2 sats > 92% * Cardiology input appreciated * Continue low-dose carvedilol 6.25 twice daily to prevent rebound tachycardia #Anemia, hemoglobin dropped to 7.4, guaiac positive stool * Guaic all stools * type and cross match * follow cbc * check iron studies, b12 ,folate, reticulocyte count, LFT, Espinoza' test * Patient will be scheduled for upper endoscopy in the a.m. to rule out upper GI bleed # History of breast cancer s/p lumpectomy, radiation,and chemo * now in remission, will need outpatient mammogram and MRI for follow-up # History of primary embolism * Continue home dose of eliquis 5 mg twice a day. # History of hypertension and hyperlipidemia * Continue home medications including simvastatin # history of diabetes mellitus * Hold metformin * We'll start the patient on NovoLog sliding scale * Accu-Cheks. # History of chronic back pain * Continue home dose of Savella # History of anxiety and depression * Continue home medications including Zoloft and Lexapro FC\dvp px\heart healthy diet N.p.o. at midnight for upper GI endoscopy Problem List: 1. Mediastinal mass 2. Symptomatic anemia 3. Dyspnea Pain Ratin Pain Location: N/A Pain Goal: Remain pain free Pain Plan: Pathway Tomorrow's Labs & Rationales: CBC BEP Lencho Bhatia 09/07/17 1124: Attending MD Review Statement Attending Statement Attending MD Statement: examined this patient, discuss w/resident/PA/AIR DRIER, agreed w/resident/PA/AIR DRIER, discussed with family, reviewed EMR data (avail), discussed with nursing, discussed with case mgmt, reviewed images, amended to note Attending Assessment/Plan: Patient with pmh as above comes with progressive shortness of breath for 2 weeks found to have severe anemia on admission with dark stools. Patient anemia likely multifactorial likely acute blood loss. Hematology consulted and obtain labs before transfusion of 1 unit of prbc. GI consulted for possible GI bleed and dark stools. EGD/Colonoscopy as per GI. Serial monitoring of cbc, transfuse to keep hb aorund 8, iv PPI. Cardiology recommend to obtain ECHO with negative serial cardiac enzymes OR ruled out. GI/dvt prophyalxis full code.
--- NOTE | 2017-09-07 08:00 | Cons- Gastroenterology ---
General Information and HPI Consulting Request Date of Consult: 09/07/17 Requested By: Lencho Bhatia MD Reason for Consult: Anemia, guaiac positive stool. Source of Information: patient, old records Exam Limitations: no limitations History of Present Illness: Ms. Rubin is a 71 year old female with a history of breast cancer, PE on Eliquis, DM and fibromyalgia who was admitted to yesterday after she presented with worsening shortness of breath. She has had progressive shortness of breath over the past 2 weeks without any associated sputum production or fevers. She has had some chest discomfort with exertion and palpitations as well. She notes that a few days before presentation she had some non-bloody diarrhea associated with some GI discomfort that has since resolved. She has been without any rectal bleeding or melena. She also has been without any vomiting, hematemesis, heartburn or dysphagia. On admission she was afebrile and hemodynamically stable. She had a ct scan that was negative for any new pulmonary emboli. She was admitted to telemetry and overnight she had a one gram drop from her hgb and she was noted to have occult blood in her stool for which a GI consultation was called. She has not had any melena, brbpr or hematemesis and she has remained hemodynamically stable since admission. Allergies/Medications Allergies: Coded Allergies: No Known Allergies (06/10/17) Home Med List: Apixaban (Eliquis) 5 MG TABLET 1 TAB PO BID PE .START THIS MEDICATION ON 09/10/16 Aspirin (Ecotrin*) 81 MG TABLET.DR 1 TAB PO DAILY heart health (Reported) Biotin (Unknown Strength) CAPSULE (Unknown Dose) PO DAILY SUPPLEMENT ( Reported) Escitalopram Oxalate 20 MG TABLET 1 TAB PO DAILY ANXIETY / DEPRESSION ( Reported) Furosemide (Lasix) 20 MG TABLET 1 TAB PO DAILY DIURETIC (Reported) Meloxicam 15 MG TABLET 1 TAB PO DAILY PAIN/INFLAMMATION (Reported) Metformin HCl 1,000 MG TABLET 1 TAB PO BID DM . Milnacipran HCl (Savella) 25 MG TABLET 1 TAB PO BID PAIN (Reported) Multivitamin (Daily Multiple Vitamin) 1 EACH TABLET 1 TAB PO DAILY supplement (Reported) Simvastatin (Simvastatin*) 40 MG TABLET 1 TAB PO QPM CHOLESTEROL (Reported) Sitagliptin Phosphate (Januvia) 50 MG TABLET 1 TAB PO DAILY DM (Reported) Valsartan (Diovan) 160 MG TABLET 1 TAB PO DAILY HTN (Reported) Zolpidem Tartrate 5 MG TABLET 1 TAB PO QPMP insominia (Reported) Current Medications: Current Medications Sig/Estephania Start time Last Medication Dose Route Stop Time Status Admin Acetaminophen 650 MG Q6P PRN 09/065 AC PO Apixaban 5 MG BID 09/07 899 DC PO Apixaban 5 MG BID 09/07 899 CAN PO Aspirin Buffered 81 MG DAILY 09/07 899 DC PO Aspirin Buffered 81 MG DAILY 09/07 899 CAN PO Atorvastatin Calcium 40 MG DAILY 09/07 899 AC PO Escitalopram Oxalate 20 MG DAILY 09/07 899 DC PO Escitalopram Oxalate 20 MG DAILY 09/07 899 AC PO Insulin Aspart 0 TIDAC 09/08 799 AC 09/07 SC 0756 Losartan Potassium 160 MG DAILY 09/07 899 CAN PO Losartan Potassium 50 MG DAILY 09/07 899 DC PO Losartan Potassium 50 MG DAILY 09/07 899 AC PO Multivitamins 1 TAB DAILY 09/07 899 AC PO Pantoprazole Sodium 40 MG DAILY 09/07 899 AC IV Sodium Chloride 1,000 ML CONTINOUS INFUSION 09/06 2314 DC 09/07 IV 0051 Sumatriptan Succinate 5 MG .[BEDTIME] 09/07 010 CAN PO Zolpidem Tartrate 5 MG .[QPMP] 09/07 0115 CAN PO Zolpidem Tartrate 5 MG AT BEDTIME 09/07 0100 AC 09/07 PO 0110 Past History Travel History Traveled to [place] past 21 day No Medical History Blood Transfusion Hx: No Neurological: NONE EENT: NONE Cardiovascular: CHF Respiratory: pulmonary embolism Gastrointestinal: NONE Hepatic: NONE Renal: NONE Musculoskeletal: FIBROMYALGIA Psychiatric: NONE Endocrine: diabetes Blood Disorders: NONE Cancer(s): breast cancer MICA SPREADER/Reproductive: NONE Surgical History Surgical History: LUMPECTOMY LEFT BREAST Family History Relations & Conditions If Any: Relation not specified for: FHx: uterine cancer Psychosocial History Where Do You Live? Home Who Do You Live With? spouse Services at Home: None Primary Language: Serbian Smoking Status: Never Smoked ETOH Use: denies use Functional Ability ADLs Independent: dressing, eating, toileting, bathing. Ambulation: independent IADLs Independent: shopping, housework, finances, food prep, telephone, transportation , medication admin. ECHO Results (as available) Date of last Echo 09/10/16 EF% 45 Review of Systems Review of Systems Constitutional: Reports: malaise, weakness. Denies: chills, diaphoresis, fever. EENTM: Denies: no symptoms. Cardiovascular: Reports: palpitations. Denies: chest pain, edema, syncope. Respiratory: Reports: see HPI, short of breath. GI: Reports: see HPI. Genitourinary: Denies: no symptoms. Musculoskeletal: Denies: no symptoms. Skin: Denies: no symptoms. Neurological/Psychological: Denies: no symptoms. Hematologic/Endocrine: Denies: no symptoms. Immunologic/Allergic: Denies: no symptoms. All Other Systems: Reviewed and Negative Exam & Diagnostic Data Vital Signs and I&O Vital Signs Date Time Temp Pulse Resp B/P B/P Pulse O2 O2 Flow FiO2 Mean Ox Delivery Rate 09/07 0711 98.1 108 18 112/74 96 09/07 0020 98.8 108 18 118/80 99 Room Air 09/07 0015 Room Air 09/06 2304 97.7 108 18 114/53 98 Room Air 09/06 2111 98.0 106 18 111/53 99 Room Air 09/06 1917 97.8 118 17 120/74 100 Room Air Intake & Output 09/07 1600 09/07 0400 09/06 1600 09/06 0400 09/05 1600 09/05 0400 Intake Total 0 Output Total Balance 0 Intake, Oral 0 Patient 179 lb Weight Weight Reported by Patient Measurement Method Physical Exam General Appearance: well developed/nourished, no apparent distress, alert, awake , comfortable Head: atraumatic, normal appearance Eyes: Bilateral: normal appearance. Ears, Nose, Throat: normal pharynx, normal ENT inspection, hearing grossly normal Neck: normal inspection, supple, full range of motion Respiratory: normal breath sounds, chest non-tender, no respiratory distress Cardiovascular: regular rate/rhythm Gastrointestinal: normal bowel sounds, soft, non-tender, no organomegaly Rectal: deferred Extremities: normal inspection, no edema Neurologic/Psych: no motor/sensory deficits, awake, alert, oriented x 3 Skin: intact, normal color, warm/dry Results Pertinent Lab Results: Laboratory Tests 09/07 09/06 0500 2227 Chemistry Sodium (137 - 145 mmol/L) 140 Potassium (3.5 - 5.1 mmol/L) 4.0 Chloride (98 - 107 mmol/L) 104 Carbon Dioxide (22 - 30 mmol/L) 25 Anion Gap (5 - 16) 10 BUN (7 - 17 mg/dL) 30 H Creatinine (0.5 - 1.0 mg/dL) 1.3 H Estimated GFR (>60 ml/min) 40 L BUN/Creatinine Ratio (7 - 25 %) 23.1 Total Bilirubin (0.2 - 1.3 mg/dL) Pending Direct Bilirubin (< 0.4 mg/dL) Pending AST (14 - 36 U/L) Pending ALT (9 - 52 U/L) Pending Alkaline Phosphatase (<127 U/L) Pending Troponin I (< 0.11 ng/ml) < 0.01 < 0.01 Total Protein (6.3 - 8.2 g/dL) Pending Albumin (3.5 - 5.0 g/dL) Pending Hematology CBC w Diff NO MAN DIFF REQ WBC (4.8 - 10.8 /CUMM) 4.4 L RBC (4.20 - 5.40 /CUMM) 2.51 L Hgb (12.0 - 16.0 G/DL) 7.4 *L Hct (37 - 47 %) 22.0 L MCV (81.0 - 99.0 FL) 87.6 MCH (27.0 - 31.0 PG) 29.5 MCHC (33.0 - 37.0 G/DL) 33.6 RDW (11.5 - 14.5 %) 13.5 Plt Count (130 - 400 /CUMM) 256 MPV (7.4 - 10.4 FL) 8.3 Gran % (42.2 - 75.2 %) 67.8 Lymphocytes % (20.5 - 51.1 %) 18.5 L Monocytes % (1.7 - 9.3 %) 8.7 Eosinophils % (0 - 5 %) 4.5 Basophils % (0.0 - 2.0 %) 0.5 Absolute Granulocytes (1.4 - 6.5 /CUMM) 3.0 Absolute Lymphocytes (1.2 - 3.4 /CUMM) 0.8 L Absolute Monocytes (0.10 - 0.60 /CUMM) 0.4 Absolute Eosinophils (0.0 - 0.7 /CUMM) 0.2 Absolute Basophils (0.0 - 0.2 /CUMM) 0 09/06 1918 Chemistry Sodium (137 - 145 mmol/L) 137 Potassium (3.5 - 5.1 mmol/L) 4.4 Chloride (98 - 107 mmol/L) 99 Carbon Dioxide (22 - 30 mmol/L) 26 Anion Gap (5 - 16) 12 BUN (7 - 17 mg/dL) 31 H Creatinine (0.5 - 1.0 mg/dL) 1.3 H Estimated GFR (>60 ml/min) 40 L BUN/Creatinine Ratio (7 - 25 %) 23.8 Glucose (65 - 99 mg/dL) 148 H Calcium (8.4 - 10.2 mg/dL) 9.6 Magnesium (1.6 - 2.3 mg/dL) 1.8 Iron (37 - 170 ug/dL) 47 TIBC (265 - 497 ug/dL) 360 Ferritin (11.1 - 264 ng/mL) 24.4 Troponin I (< 0.11 ng/ml) < 0.01 Cri-N-Bvuonorjzxq Pept (<125 pg/mL) 44.5 Vitamin B12 (239 - 931 pg/mL) 461 Folate (2.76 - 20.0 ng/mL) > 20.0 H TSH (0.270 - 4.200 uIU/mL) 3.440 Free T4 (0.78 - 2.44 ng/dL) 1.13 Coagulation D-Dimer High Sensitivty (0 - 243 ng/ml) < 200 Hematology CBC w Diff NO MAN DIFF REQ WBC (4.8 - 10.8 /CUMM) 6.2 RBC (4.20 - 5.40 /CUMM) 2.87 L Hgb (12.0 - 16.0 G/DL) 8.4 L Hct (37 - 47 %) 24.9 L MCV (81.0 - 99.0 FL) 86.9 MCH (27.0 - 31.0 PG) 29.3 MCHC (33.0 - 37.0 G/DL) 33.7 RDW (11.5 - 14.5 %) 13.5 Plt Count (130 - 400 /CUMM) 301 MPV (7.4 - 10.4 FL) 8.6 Gran % (42.2 - 75.2 %) 76.4 H Lymphocytes % (20.5 - 51.1 %) 15.1 L Monocytes % (1.7 - 9.3 %) 5.7 Eosinophils % (0 - 5 %) 2.7 Basophils % (0.0 - 2.0 %) 0.1 Absolute Granulocytes (1.4 - 6.5 /CUMM) 4.7 Absolute Lymphocytes (1.2 - 3.4 /CUMM) 0.9 L Absolute Monocytes (0.10 - 0.60 /CUMM) 0.4 Absolute Eosinophils (0.0 - 0.7 /CUMM) 0.2 Absolute Basophils (0.0 - 0.2 /CUMM) 0 Imaging/Other Studies: Colonoscopy Procedure Date of Last Colonoscopy: Baseline Procedure Date: 02/17/16 Procedure Type: colonoscopy w/biopsy Ball Warper Tender: LENY BECKETT MD ASA Classification: III Indications: Colon cancer screening Instrument (Colonoscope): single channel Meds Received: MAC Patient's Tolerance: good Complications: none Extent Reached: cecum Prep: good Procedure: The patient signed informed consent, was placed in the Bowen position, and medicated. Examination of rectum was normal. The Olympus high-definition variable stiffness colonoscope was inserted through the anus and advanced to the cecum, identified by the appendiceal orifice and ileocecal valve. Retroflexion was performed in order to examine the rectum. Careful examination was performed. There was adequate withdrawal time. Findings: The rectum was normal. Diverticula extending from the sigmoid to the hepatic flexure. 2 diminutive polyps, at the hepatic flexure and in the cecum, were resected with cold biopsy forceps. The colon was otherwise normal to the base of the cecum. Impression: * Diminutive polyps * Diverticulosis SERVICE DATE: 09/06/17 EXAM TYPE: CAT - CT CHEST WO IV CONTRAST EXAMINATION: CT CHEST WITHOUT CONTRAST CLINICAL INFORMATION: Increasing dyspnea. Chest tightness. COMPARISON: CTA of chest 06/10/2017. 11/22/2014 TECHNIQUE: Multidetector volumetric CT imaging of the chest was done. Axial MIP volume rendering provided. Sagittal and coronal reformatted images were obtained. DLP: 228.42 mGy-cm FINDINGS: LUNGS: Pleural-parenchymal scarring at the left lung apex and involving the subpleural lung at the anterior left upper lobe. There is also linear scarring at the right lower lobe. These are stable since prior study. There is no acute abnormality. Central bronchial airways are open. No bronchiectasis. No infiltrate. MEDIASTINUM: 1.3 cm soft tissue nodule at the anterior mediastinum adjacent to the ascending aorta, axial image 140 (4). Density measurement of [address] H[address] On the CT scan of 11/22/2014 this was also present measuring 2 cm previously. This has reduced in size therefore since prior study. No significant lymphadenopathy or suspicious mass. There is no pericardial effusion. PLEURA: There is no pleural effusion. No pleural mass or thickening. AXILLA: No lymphadenopathy. Surgical clips in the left breast. UPPER ABDOMEN: Unremarkable. OSSEOUS STRUCTURES: Degenerative spondylosis of spine with multilevel disc height narrowing and endplate spurring of the vertebrae. IMPRESSION: 1. No acute change of chest. 2. Diminishing size of anterior mediastinal lesion since CAT scan of 2014. No suspicious mediastinal mass or significant lymphadenopathy. Assessment/Plan Assessment/Recommendations: Assessment: Ms. Rubin is a 71 year old female with a history of a PE on anticoagulation who presents with progressive shortness of breath over the past few weeks of uncertain etiology, but her ct scan was negative for a PE or infiltrates so I suspect the shortness of breath is secondary to worsening anemia. She has a chronic anemia that is likely multifactorial in etiology, but at this point as her hgb has been trending down and she does have occult blood in her stool a GI source of her anemia should be sought. She had a colonoscopy just a few years ago so I don't feel that needs to be repeated now, but as her upper GI tract has not been previously evaluated I feel this would be reasonable to pursue now. As she is without overt GI bleeding I don't necessarily feel her anticoagulation needs to be held, but as it already has been and as I plan to pursue a diagnostic endoscopy tomorrow would recommend continuing to hold it for now. Her ASA can be restarted though. If an EGD is negative it may then be reasonable to puruse an outpatient small bowel pill cam. Recommendations: 1. Diet as tolerated, but would keep NPO after midnight in anticipation of a diagnostic EGD in the am 2. Follow daily CBC and trasfuse as needed to keep hgb > 7 or as per cardiology recommendations. 3. Ok to restart asa if indicated for cardiac prophylaxis, but would avoid other otc nsaids 4. Hold eliquis until EGD tomorrow 5. Notify GI for signs of overt GI bleeding I will continue to follow this patient and make further recommendations based on her clinical course and results of her EGD tomorrow. Problem List: 1. Symptomatic anemia Copies To: Ana GO,Rizwan Teague. Consult Acknowledgment - Thank you for your consult request.
--- NOTE | 2017-09-07 08:10 | Cons- Oncology ---
General Information and HPI Consulting Request Date of Consult: 09/07/17 Requested By: Saji GO,Tereza Reason for Consult: breast cancer, anemia, mediastinal mass Source of Information: patient, old records Exam Limitations: no limitations History of Present Illness: Ms. Rubin is a 71-year-old female with stage IB invasive ductal carcinoma of the left breast (ER/GA-, HER2+) s/p neoadjuvant AC, lumpectomy, adjuvant paclitaxel/trastuzumab complicated by CHF, radiation, CHF, DM, PE on apixaban, depression, fibromyaliga, and HTN who presented to the [facility] after 1- 2 weeks of weakness and dyspnea with exertion. She has been progressive getting worse with fatigue and catching her breathe with walking. She denies any chest pain or palpitation. She has no dizziness or light headedness. She denies any numbness or tingling. She denies any nausea or vomiting. She did have some diarrhea. She denies any blood in the stool or urine. She denies any vaginal bleeding. She has not had any hematemesis, hemoptysis, or epistaxis. She does bruise easily with the apixaban. She denies any spontaneous bruising or bleeding. On admission, she was noted to have a hemoglobinof 8.4 with hematocrit of 24.9. WBC and platelet are normal. MCV is normal at 86.9. Stool guaic was positive. Creatinine is slightly elevated at 1.3 along with BUN of 31. CT of the chest without contrast demonstrated a stable soft tissue nodule in the anterior meadistinum adjacent to the ascending aorta. This was measured as 1.3 cm and improved compaired to previous. Repeated blood work this morning demonstrated hemoglobin of 7.4 with a hematocrit of 22.0. Her vital signs are stable. She is more tachycardic. She denies any new symptoms this morning. She just feels tired and short of breath. She does note some tenderness still on her left breast. She thinks there may be a nodule in the left breast. Her last mammogram was on 03/01/2017. Allergies/Medications Allergies: Coded Allergies: No Known Allergies (06/10/17) Home Med List: Apixaban (Eliquis) 5 MG TABLET 1 TAB PO BID PE .START THIS MEDICATION ON 09/10/16 Aspirin (Ecotrin*) 81 MG TABLET.DR 1 TAB PO DAILY heart health (Reported) Biotin (Unknown Strength) CAPSULE (Unknown Dose) PO DAILY SUPPLEMENT ( Reported) Escitalopram Oxalate 20 MG TABLET 1 TAB PO DAILY ANXIETY / DEPRESSION ( Reported) Furosemide (Lasix) 20 MG TABLET 1 TAB PO DAILY DIURETIC (Reported) Meloxicam 15 MG TABLET 1 TAB PO DAILY PAIN/INFLAMMATION (Reported) Metformin HCl 1,000 MG TABLET 1 TAB PO BID DM . Milnacipran HCl (Savella) 25 MG TABLET 1 TAB PO BID PAIN (Reported) Multivitamin (Daily Multiple Vitamin) 1 EACH TABLET 1 TAB PO DAILY supplement (Reported) Simvastatin (Simvastatin*) 40 MG TABLET 1 TAB PO QPM CHOLESTEROL (Reported) Sitagliptin Phosphate (Januvia) 50 MG TABLET 1 TAB PO DAILY DM (Reported) Valsartan (Diovan) 160 MG TABLET 1 TAB PO DAILY HTN (Reported) Zolpidem Tartrate 5 MG TABLET 1 TAB PO QPMP insominia (Reported) Current Medications: Current Medications Sig/Estephania Start time Last Medication Dose Route Stop Time Status Admin Acetaminophen 650 MG Q6P PRN 09/06 2314 AC PO Apixaban 5 MG BID 09/07 899 DC PO Apixaban 5 MG BID 09/07 899 CAN PO Aspirin Buffered 81 MG DAILY 09/07 899 DC PO Aspirin Buffered 81 MG DAILY 09/07 899 CAN PO Atorvastatin Calcium 40 MG DAILY 09/07 899 AC PO Escitalopram Oxalate 20 MG DAILY 09/07 899 DC PO Escitalopram Oxalate 20 MG DAILY 09/07 899 AC PO Insulin Aspart 0 TIDAC 09/08 799 AC SC Losartan Potassium 160 MG DAILY 09/07 899 CAN PO Losartan Potassium 50 MG DAILY 09/07 899 DC PO Losartan Potassium 50 MG DAILY 09/07 899 AC PO Multivitamins 1 TAB DAILY 09/07 899 AC PO Pantoprazole Sodium 40 MG DAILY 09/07 899 AC IV Sodium Chloride 1,000 ML CONTINOUS INFUSION 09/06 2315 DC 09/07 IV 0051 Sumatriptan Succinate 5 MG .[BEDTIME] 09/07 010 CAN PO Zolpidem Tartrate 5 MG .[QPMP] 09/07 0115 CAN PO Zolpidem Tartrate 5 MG AT BEDTIME 09/07 0100 AC 09/07 PO 0110 Review of Systems Review of Systems Constitutional: Reports: weakness. Denies: chills, fever, unexplained weight loss. EENTM: Denies: blurred vision, double vision. Cardiovascular: Denies: chest pain, palpitations, peripheral edema, syncope. Respiratory: Reports: short of breath. Denies: cough, hemoptysis, sputum production, wheezing. GI: Reports: diarrhea. Denies: abdominal pain, bloating, constipation, melena, nausea, bloody stool, changes in stool, vomiting. Genitourinary: Denies: dysuria, hematuria. Musculoskeletal: Denies: back pain. Neurological/Psychological: Reports: anxiety. Denies: ataxia, cognitive dysfunction, confusion, headache, numbness, paresthesia. Hematologic/Endocrine: Reports: bruising. Denies: bleeding. Immunologic/Allergic: Denies: lymphadenopathy. All Other Systems: Reviewed and Negative Past History Travel History Traveled to [place] past 21 day No Medical History Blood Transfusion Hx: No Neurological: NONE EENT: NONE Cardiovascular: CHF Respiratory: pulmonary embolism Gastrointestinal: NONE Hepatic: NONE Renal: NONE Musculoskeletal: FIBROMYALGIA Psychiatric: NONE Endocrine: diabetes Blood Disorders: NONE Cancer(s): breast cancer OIL SEPARATOR/Reproductive: NONE Surgical History Surgical History: LUMPECTOMY LEFT BREAST Family History Relations & Conditions If Any: Relation not specified for: FHx: uterine cancer Psychosocial History Where Do You Live? Home Who Do You Live With? spouse Services at Home: None Primary Language: Malian Smoking Status: Never Smoked ETOH Use: denies use Functional Ability ADLs Independent: dressing, eating, toileting, bathing. Ambulation: independent IADLs Independent: shopping, housework, finances, food prep, telephone, transportation , medication admin. ECHO Results (as available) Date of last Echo 09/10/16 EF% 45 Exam & Diagnostic Data Vital Signs and I&O Vital Signs Date Time Temp Pulse Resp B/P B/P Pulse O2 O2 Flow FiO2 Mean Ox Delivery Rate 09/07 0711 98.1 108 18 112/74 96 09/07 0020 98.8 108 18 118/80 99 Room Air 09/07 0015 Room Air 09/06 2304 97.7 108 18 114/53 98 Room Air 09/06 2111 98.0 106 18 111/53 99 Room Air 09/06 1917 97.8 118 17 120/74 100 Room Air Intake & Output 09/07 0800 09/07 0000 06/18 1600 Intake Total 0 Output Total Balance 0 Intake, Oral 0 Patient 81.363 kg 80.739 kg Weight Weight Reported by Patient Reported by Patient Measurement Method Physical Exam General Appearance: well developed/nourished, no apparent distress, alert, awake , comfortable Head: atraumatic, normal appearance Eyes: Bilateral: PERRL, EOMI. Ears, Nose, Throat: normal pharynx Neck: supple Cardiovascular: murmur, tachycardia Breasts left breast mass in the upper outer quadrant, tender to palpation Gastrointestinal: normal bowel sounds, soft, non-tender Extremities: normal inspection, no edema Neurologic/Psych: awake, alert, oriented x 3 Cranial Nerves: normal hearing, normal speech, PERRL Skin: warm/dry, ecchymosis (in the LUE) Lymphatic: no anterior cervical kori Last 48 Hours of Lab Results: Laboratory Tests 09/07 09/06 0500 2227 Chemistry Sodium (137 - 145 mmol/L) 140 Potassium (3.5 - 5.1 mmol/L) 4.0 Chloride (98 - 107 mmol/L) 104 Carbon Dioxide (22 - 30 mmol/L) 25 Anion Gap (5 - 16) 10 BUN (7 - 17 mg/dL) 30 H Creatinine (0.5 - 1.0 mg/dL) 1.3 H Estimated GFR (>60 ml/min) 40 L BUN/Creatinine Ratio (7 - 25 %) 23.1 Total Bilirubin (0.2 - 1.3 mg/dL) Pending Direct Bilirubin (< 0.4 mg/dL) Pending AST (14 - 36 U/L) Pending ALT (9 - 52 U/L) Pending Alkaline Phosphatase (<127 U/L) Pending Troponin I (< 0.11 ng/ml) < 0.01 < 0.01 Total Protein (6.3 - 8.2 g/dL) Pending Albumin (3.5 - 5.0 g/dL) Pending Hematology CBC w Diff NO MAN DIFF REQ WBC (4.8 - 10.8 /CUMM) 4.4 L RBC (4.20 - 5.40 /CUMM) 2.51 L Hgb (12.0 - 16.0 G/DL) 7.4 *L Hct (37 - 47 %) 22.0 L MCV (81.0 - 99.0 FL) 87.6 MCH (27.0 - 31.0 PG) 29.5 MCHC (33.0 - 37.0 G/DL) 33.6 RDW (11.5 - 14.5 %) 13.5 Plt Count (130 - 400 /CUMM) 256 MPV (7.4 - 10.4 FL) 8.3 Gran % (42.2 - 75.2 %) 67.8 Lymphocytes % (20.5 - 51.1 %) 18.5 L Monocytes % (1.7 - 9.3 %) 8.7 Eosinophils % (0 - 5 %) 4.5 Basophils % (0.0 - 2.0 %) 0.5 Absolute Granulocytes (1.4 - 6.5 /CUMM) 3.0 Absolute Lymphocytes (1.2 - 3.4 /CUMM) 0.8 L Absolute Monocytes (0.10 - 0.60 /CUMM) 0.4 Absolute Eosinophils (0.0 - 0.7 /CUMM) 0.2 Absolute Basophils (0.0 - 0.2 /CUMM) 0 09/06 1918 Chemistry Sodium (137 - 145 mmol/L) 137 Potassium (3.5 - 5.1 mmol/L) 4.4 Chloride (98 - 107 mmol/L) 99 Carbon Dioxide (22 - 30 mmol/L) 26 Anion Gap (5 - 16) 12 BUN (7 - 17 mg/dL) 31 H Creatinine (0.5 - 1.0 mg/dL) 1.3 H Estimated GFR (>60 ml/min) 40 L BUN/Creatinine Ratio (7 - 25 %) 23.8 Glucose (65 - 99 mg/dL) 148 H Calcium (8.4 - 10.2 mg/dL) 9.6 Magnesium (1.6 - 2.3 mg/dL) 1.8 Iron (37 - 170 ug/dL) 47 TIBC (265 - 497 ug/dL) 360 Ferritin (11.1 - 264 ng/mL) 24.4 Troponin I (< 0.11 ng/ml) < 0.01 [id number]-D-[id number] Pept (<125 pg/mL) 44.5 Vitamin B12 (239 - 931 pg/mL) 461 Folate (2.76 - 20.0 ng/mL) > 20.0 H TSH (0.270 - 4.200 uIU/mL) 3.440 Free T4 (0.78 - 2.44 ng/dL) 1.13 Coagulation D-Dimer High Sensitivty (0 - 243 ng/ml) < 200 Hematology CBC w Diff NO MAN DIFF REQ WBC (4.8 - 10.8 /CUMM) 6.2 RBC (4.20 - 5.40 /CUMM) 2.87 L Hgb (12.0 - 16.0 G/DL) 8.4 L Hct (37 - 47 %) 24.9 L MCV (81.0 - 99.0 FL) 86.9 MCH (27.0 - 31.0 PG) 29.3 MCHC (33.0 - 37.0 G/DL) 33.7 RDW (11.5 - 14.5 %) 13.5 Plt Count (130 - 400 /CUMM) 301 MPV (7.4 - 10.4 FL) 8.6 Gran % (42.2 - 75.2 %) 76.4 H Lymphocytes % (20.5 - 51.1 %) 15.1 L Monocytes % (1.7 - 9.3 %) 5.7 Eosinophils % (0 - 5 %) 2.7 Basophils % (0.0 - 2.0 %) 0.1 Absolute Granulocytes (1.4 - 6.5 /CUMM) 4.7 Absolute Lymphocytes (1.2 - 3.4 /CUMM) 0.9 L Absolute Monocytes (0.10 - 0.60 /CUMM) 0.4 Absolute Eosinophils (0.0 - 0.7 /CUMM) 0.2 Absolute Basophils (0.0 - 0.2 /CUMM) 0 Imaging/Other Studies: CT chest without contrast 09/06/2017: 1. No acute change of chest. 2. Diminishing size of anterior mediastinal lesion since CAT scan of 2014. No suspicious mediastinal mass or significant lymphadenopathy. Assessment/Plan Assessment: Ms. Rubin is a 71-year-old female with stage IB invasive ductal carcinoma of the left breast (ER/GA-, HER2+) s/p neoadjuvant AC, lumpectomy, adjuvant paclitaxel/trastuzumab complicated by CHF, radiation, CHF, DM, PE on apixaban, depression, fibromyaliga, and HTN who presented to the [facility] after 1- 2 weeks of weakness and dyspnea with exertion. She has been progressive getting worse with fatigue and catching her breathe with walking. On admission, she was noted to have hemoglobin of 8.4 and hematocrit of 24.9. Repeated blood work today demonstrated hemoglobin of 7.4 and hematocrit of 22.0. Her WBC and platelets are normal on admission. WBC is slight decreased today. Chemistry demonstrated stable but elevate creatinine. Stool guaic was positive. She has no obvious evidence of bleeding. Type and screen was negative for antibodies. Iron study demonstrated normal ferritin, serum iron, and TIBC. Vitamin B12 and folate were normal. TSH was normal. GI was consulted for possible GI bleeding. Her last colonoscopy was in 2015. This demonstrated diverticulosis. She should have work up for worsening anemia. Chemotherapy may cause worsening anemia but she has not received chemotherapy in over 6 months. Reticulocyte count should be checked. Hepatic panel should be checked. Espinoza may be evaluated. CT chest without contrast was relatively unremarkable except for slightly improved soft tissue nodule in the mediastinum. Last CTA on 06/10/2017 demonstrated a size of 1.5 cm. Etiology is unclear but less likely to be malignancy given stability to slight improvement since 2014. This may be worked up in the future if needed with MRI. Recommendations: Normocytic anemia: -check reticulocyte count -check Espinoza -check hepatic panel -follow up GI evaluation Mediastinal mass: -monitor for now -consider MRI as outpatient Left breast cancer: -consider diagnostic mammogram/US of left breast given new symptoms PE: -continue apixaban Problem List: 1. Breast cancer 2. Pulmonary embolism 3. Symptomatic anemia 4. Mediastinal mass Other Findings/Comments: Please call [phone] with any questions or concerns. Consult Acknowledgment - Thank you for your consult request.
--- NOTE | 2017-09-07 09:50 | Cons- Cardiology ---
General Information and HPI Consulting Request Date of Consult: 09/07/17 Requested By: Lencho Bhatia MD Reason for Consult: Shortness of breath Source of Information: patient, old records Exam Limitations: no limitations History of Present Illness: The patient is a 71-year-old femaleThe patient is a 71-year-old female with a history of carcinoma of the breast status post lumpectomy, radiation, and chemotherapy last dose was approximately 1 year ago, hypertension, hyperlipidemia, bilateral pulmonary embolism on Eliquis, history of combined systolic and diastolic heart failure, mild cardiomyopathy now with normalized ejection fraction of 50% by echocardiogram March 2017, diabetes, and fibromyalgia who now presents with shortness of breath. Patient states that over the past few weeks she's noted increasing dyspnea on exertion. She states that if she gets up from the chair to walk to the bathroom she has to stop to catch her breath. She denies chest discomfort but does feel palpitations. She denies PND orthopnea nor ankle edema. She denies cough or sputum production. She does have recurrent sinusitis. She underwent a nuclear stress test 10/19/2016 demonstrated no evidence of ischemia ejection fraction at that time was 43% She states that initially when she started Eliquis she noted black stools which then resolved but she now notes that they have been darker recently. She is noted to have heme positive stools on admission. Most recent CBC and Epic was from 07/08/2017 H&H was 9.6 and 29.7. The only recent medication change was a decrease in her valsartan from 160 mg one tablet daily to one half tablet daily by Dr. Perez due to borderline blood pressure. Allergies/Medications Allergies: Coded Allergies: No Known Allergies (06/10/17) Home Med List: Apixaban (Eliquis) 5 MG TABLET 1 TAB PO BID PE .START THIS MEDICATION ON 09/10/16 Aspirin (Ecotrin*) 81 MG TABLET. 1 TAB PO DAILY heart health (Reported) Biotin (Unknown Strength) CAPSULE (Unknown Dose) PO DAILY SUPPLEMENT ( Reported) Escitalopram Oxalate 20 MG TABLET 1 TAB PO DAILY ANXIETY / DEPRESSION ( Reported) Furosemide (Lasix) 20 MG TABLET 1 TAB PO DAILY DIURETIC (Reported) Meloxicam 15 MG TABLET 1 TAB PO DAILY PAIN/INFLAMMATION (Reported) Metformin HCl 1,000 MG TABLET 1 TAB PO BID DM . Milnacipran HCl (Savella) 25 MG TABLET 1 TAB PO BID PAIN (Reported) Multivitamin (Daily Multiple Vitamin) 1 EACH TABLET 1 TAB PO DAILY supplement (Reported) Simvastatin (Simvastatin*) 40 MG TABLET 1 TAB PO QPM CHOLESTEROL (Reported) Sitagliptin Phosphate (Januvia) 50 MG TABLET 1 TAB PO DAILY DM (Reported) Valsartan (Diovan) 160 MG TABLET 1 TAB PO DAILY HTN (Reported) Zolpidem Tartrate 5 MG TABLET 1 TAB PO QPMP insominia (Reported) Current Medications: Current Medications Sig/Estephania Start time Last Medication Dose Route Stop Time Status Admin Acetaminophen 650 MG Q6P PRN 09/06 2315 AC PO Apixaban 5 MG BID 09/07 09 DC PO Apixaban 5 MG BID 09/07 0900 CAN PO Aspirin Buffered 81 MG DAILY 09/07 0900 DC PO Aspirin Buffered 81 MG DAILY 09/07 0900 CAN PO Atorvastatin Calcium 40 MG DAILY 09/07 0900 DC PO Atorvastatin Calcium 40 MG DAILY 09/07 0900 AC 09/07 PO 0817 Escitalopram Oxalate 20 MG DAILY 09/07 0900 DC PO Escitalopram Oxalate 20 MG DAILY 09/07 0900 AC 09/07 PO 0810 Insulin Aspart 0 TIDAC 09/07 0800 AC 09/07 SC 0756 Losartan Potassium 160 MG DAILY 09/07 0900 CAN PO Losartan Potassium 50 MG DAILY 09/07 0900 DC PO Losartan Potassium 50 MG DAILY 09/07 0900 AC 09/07 PO 0811 Multivitamins 1 TAB DAILY 09/07 0900 AC 09/07 PO 0810 Pantoprazole Sodium 40 MG DAILY 09/07 0900 AC 09/07 IV 0812 Sodium Chloride 1,000 ML CONTINOUS INFUSION 09/06 2315 DC 09/07 IV 0051 Sumatriptan Succinate 5 MG .[BEDTIME] 09/07 0100 CAN PO Zolpidem Tartrate 5 MG .[QPMP] 09/07 0115 CAN PO Zolpidem Tartrate 5 MG AT BEDTIME 09/07 0100 AC 09/07 PO 0110 Review of Systems Review of Systems: Eyes no blurred or double vision Ears no deafness or ringing Nose and throat no recurrent sinusitis Lungs per history of present illness Heart per history of present illness Abdomen no nausea vomiting dark stools Musculoskeletal occasional muscle and joint pains Psych no anxiety or depression Neuro without recurrent headache or seizures Endocrine no heat or cold intolerance Past History Travel History Traveled to [place] past 21 day No Medical History Blood Transfusion Hx: No Neurological: NONE EENT: NONE Cardiovascular: CHF Respiratory: pulmonary embolism Gastrointestinal: NONE Hepatic: NONE Renal: NONE Musculoskeletal: FIBROMYALGIA Psychiatric: NONE Endocrine: diabetes Blood Disorders: NONE Cancer(s): breast cancer PREVENTIVE MEDICINE SPECIALIST/Reproductive: NONE Surgical History Surgical History: LUMPECTOMY LEFT BREAST Family History Relations & Conditions If Any: Relation not specified for: FHx: uterine cancer Psychosocial History Where Do You Live? Home Who Do You Live With? spouse Services at Home: None Primary Language: Libyan Smoking Status: Never Smoked ETOH Use: denies use Functional Ability ADLs Independent: dressing, eating, toileting, bathing. Ambulation: independent IADLs Independent: shopping, housework, finances, food prep, telephone, transportation , medication admin. ECHO Results (as available) Date of last Echo 09/10/16 EF% 45 Exam & Diagnostic Data Vital Signs and I&O Vital Signs Date Time Temp Pulse Resp B/P B/P Pulse O2 O2 Flow FiO2 Mean Ox Delivery Rate 09/07 0811 104 110/64 09/07 0711 98.1 108 18 112/74 96 09/07 0020 98.8 108 18 118/80 99 Room Air 09/07 0015 Room Air 09/06 2304 97.7 108 18 114/53 98 Room Air 09/06 2111 98.0 106 18 111/53 99 Room Air 09/06 1917 97.8 118 17 120/74 100 Room Air Intake & Output 09/07 1600 09/07 0800 09/07 0000 09/06 1600 09/06 0800 09/06 0000 Intake Total 0 Output Total Balance 0 Intake, Oral 0 Patient 179 lb 178 lb Weight Weight Reported by Patient Reported by Patient Measurement Method Physical Exam: Patient is a well-developed well-nourished female appearing in no acute distress HEENT is unremarkable Neck is supple there is no JVD Lungs are clear Heart regular rhythm S1 and S2 are normal no murmurs gallops or rubs Abdomen bowel sounds positive Extremities without edema Skin warm and dry Neuro without focal deficits Psych awake alert and cooperative Lymphatic no adenopathy Labs/Tio Results: Laboratory Tests 09/07 09/07 09/06 0830 0500 2227 Chemistry Sodium (137 - 145 mmol/L) 140 Potassium (3.5 - 5.1 mmol/L) 4.0 Chloride (98 - 107 mmol/L) 104 Carbon Dioxide (22 - 30 mmol/L) 25 Anion Gap (5 - 16) 10 BUN (7 - 17 mg/dL) 30 H Creatinine (0.5 - 1.0 mg/dL) 1.3 H Estimated GFR (>60 ml/min) 40 L BUN/Creatinine Ratio (7 - 25 %) 23.1 Total Bilirubin (0.2 - 1.3 mg/dL) 0.2 Direct Bilirubin (< 0.4 mg/dL) 0.2 AST (14 - 36 U/L) 20 ALT (9 - 52 U/L) 27 Alkaline Phosphatase (<127 U/L) 80 Troponin I (< 0.11 ng/ml) < 0.01 < 0.01 Total Protein (6.3 - 8.2 g/dL) 5.6 L Albumin (3.5 - 5.0 g/dL) 3.4 L Hematology CBC w Diff NO MAN DIFF REQ WBC (4.8 - 10.8 /CUMM) 4.4 L RBC (4.20 - 5.40 /CUMM) 2.51 L Hgb (12.0 - 16.0 G/DL) 7.4 *L Hct (37 - 47 %) 22.0 L MCV (81.0 - 99.0 FL) 87.6 MCH (27.0 - 31.0 PG) 29.5 MCHC (33.0 - 37.0 G/DL) 33.6 RDW (11.5 - 14.5 %) 13.5 Plt Count (130 - 400 /CUMM) 256 MPV (7.4 - 10.4 FL) 8.3 Gran % (42.2 - 75.2 %) 67.8 Lymphocytes % (20.5 - 51.1 %) 18.5 L Monocytes % (1.7 - 9.3 %) 8.7 Eosinophils % (0 - 5 %) 4.5 Basophils % (0.0 - 2.0 %) 0.5 Absolute Granulocytes (1.4 - 6.5 /CUMM) 3.0 Absolute Lymphocytes (1.2 - 3.4 /CUMM) 0.8 L Absolute Monocytes (0.10 - 0.60 /CUMM) 0.4 Absolute Eosinophils (0.0 - 0.7 /CUMM) 0.2 Absolute Basophils (0.0 - 0.2 /CUMM) 0 Retic Count Pending 09/06 1918 Chemistry Sodium (137 - 145 mmol/L) 137 Potassium (3.5 - 5.1 mmol/L) 4.4 Chloride (98 - 107 mmol/L) 99 Carbon Dioxide (22 - 30 mmol/L) 26 Anion Gap (5 - 16) 12 BUN (7 - 17 mg/dL) 31 H Creatinine (0.5 - 1.0 mg/dL) 1.3 H Estimated GFR (>60 ml/min) 40 L BUN/Creatinine Ratio (7 - 25 %) 23.8 Glucose (65 - 99 mg/dL) 148 H Calcium (8.4 - 10.2 mg/dL) 9.6 Magnesium (1.6 - 2.3 mg/dL) 1.8 Iron (37 - 170 ug/dL) 47 TIBC (265 - 497 ug/dL) 360 Ferritin (11.1 - 264 ng/mL) 24.4 Troponin I (< 0.11 ng/ml) < 0.01 [id number] Pept (<125 pg/mL) 44.5 Vitamin B12 (239 - 931 pg/mL) 461 Folate (2.76 - 20.0 ng/mL) > 20.0 H TSH (0.270 - 4.200 uIU/mL) 3.440 Free T4 (0.78 - 2.44 ng/dL) 1.13 Coagulation D-Dimer High Sensitivty (0 - 243 ng/ml) < 200 Hematology CBC w Diff NO MAN DIFF REQ WBC (4.8 - 10.8 /CUMM) 6.2 RBC (4.20 - 5.40 /CUMM) 2.87 L Hgb (12.0 - 16.0 G/DL) 8.4 L Hct (37 - 47 %) 24.9 L MCV (81.0 - 99.0 FL) 86.9 MCH (27.0 - 31.0 PG) 29.3 MCHC (33.0 - 37.0 G/DL) 33.7 RDW (11.5 - 14.5 %) 13.5 Plt Count (130 - 400 /CUMM) 301 MPV (7.4 - 10.4 FL) 8.6 Gran % (42.2 - 75.2 %) 76.4 H Lymphocytes % (20.5 - 51.1 %) 15.1 L Monocytes % (1.7 - 9.3 %) 5.7 Eosinophils % (0 - 5 %) 2.7 Basophils % (0.0 - 2.0 %) 0.1 Absolute Granulocytes (1.4 - 6.5 /CUMM) 4.7 Absolute Lymphocytes (1.2 - 3.4 /CUMM) 0.9 L Absolute Monocytes (0.10 - 0.60 /CUMM) 0.4 Absolute Eosinophils (0.0 - 0.7 /CUMM) 0.2 Absolute Basophils (0.0 - 0.2 /CUMM) 0 Diagnostic Data EKG Results Sinus tachycardia Assessment/Plan Assessment/Plan 1. Shortness of breath most likely secondary to her anemia. There is no evidence of congestive heart failure on chest x-ray and her BNP was normal. Of concern is also the possibility of a cardiomyopathy although her ejection fraction was 50% in March of this year and she has not received any further chemotherapy since that time. 2. Bilateral pulmonary embolism by history on Eliquis diagnosed 08/2016 3. Hypertension 4. Hyperlipidemia 5. Carcinoma the breast status post lumpectomy with radiation and chemotherapy 6. Hyperlipidemia 7. Heme positive stools Recommendations 1. I would continue her valsartan (losartan) and resume low-dose carvedilol to prevent rebound tachycardia. She was taking 6.25 mg twice a day as an outpatient 2. Echocardiogram is pending to assess LV function and rule out the remote possibility of cardiomyopathy 3. GI consult is pending 4. Monitor on telemetry to rule out arrhythmias given her palpitations 5. Would hold off on diureses since she does not appear to be fluid overloaded 6. Eliquis is on hold due to heme positive stools 7. Transfuse if needed Thank you for allowing [facility] to participate in the care of your patient. Consult Acknowledgment - Thank you for your consult request.
[2017-09-07 18:41] LABS: ABSOLUTE BASOPHIL COUNT 0 /CUMM (0.0-0.2); ABSOLUTE EOSINOPHIL COUNT 0.2 /CUMM (0.0-0.7); ABSOLUTE GRANULOCYTE CT 4.5 /CUMM (1.4-6.5); ABSOLUTE LYMPH COUNT 0.8 /CUMM (1.2-3.4); ABSOLUTE MONOCYTE COUNT 0.4 /CUMM (0.10-0.60); BASOPHIL % 0.5 % (0.0-2.0); EOSINOPHIL % 3.5 % (0-5); GRANULOCYTE % 76.2 % (42.2-75.2); HEMATOCRIT 26.4 % (37-47); MEAN CORPUSCULAR HGB 29.7 PG (27.0-31.0); MEAN CORPUSCULAR HGB CONC 33.6 G/DL (33.0-37.0); MEAN CORPUSCULAR VOLUME 88.5 FL (81.0-99.0); MEAN PLATELET VOLUME 8.7 FL (7.4-10.4); PLATELET COUNT 292 /CUMM (130-400); RBC DISTRIBUTION WIDTH 13.8 % (11.5-14.5); RED BLOOD CELL CT 2.98 /CUMM (4.20-5.40); WHITE BLOOD CELL COUNT 5.8 /CUMM (4.8-10.8)
[2017-09-08] VITALS (7 sets, daily range): BP systolic 95–120; BP diastolic 50–80
--- NOTE | 2017-09-08 07:27 | PN- Housestaff ---
Sandra GO,Tish 09/08/17 0727: Subjective Follow-up For: 1. Exertional dyspnea with minimal exertion, associated with chest heaviness and palpitations 2. Rule out ACS, nonspecific EKG changes 3. Severe anemai 4. Guiac positive stool 5. Gastric ulcer Tele-Events Since Last Visit: Sinus tachycardia, heart rate 1001 06, no overnight events Subjective: Patient was seen and examined, no overnight events, stable vital signs, went today for upper endoscopy, denies any complete Review of Systems Constitutional: Reports: see HPI. Objective Last 24 Hrs of Vital Signs/I&O Vital Signs Date Time Temp Pulse Resp B/P B/P Pulse O2 O2 Flow FiO2 Mean Ox Delivery Rate 09/08 1445 97.9 90 17 95/54 97 Room Air 09/08 0948 120/80 09/08 0947 94 120/80 09/08 0618 97.7 94 18 120/80 97 09/07 2204 98.4 94 18 98/64 97 09/07 2136 90 86/60 09/07 1919 96 16 94/60 09/07 1820 99 84/60 09/07 1712 97 88/54 09/07 1600 Room Air Intake & Output 09/08 1600 09/08 0800 09/08 0000 Intake Total 450 Output Total 200 Balance 250 Intake, Oral 450 Number 0 Bowel Movements Output, Urine 200 Patient 182 lb Weight Physical Exam General Appearance: Alert, Oriented X3, Cooperative, No Acute Distress Cardiovascular: Normal S1, Normal S2 Lungs: Clear to Auscultation Abdomen: Normal Bowel Sounds, Soft, No Tenderness Extremities: No Clubbing, No Cyanosis, No Edema Assessment/Plan Assessment: #Chest pain with Shortness of breath possibly secondary to heart failure with reduced ejection fraction. * Tropes and EKG ruled out ACS * Continue to monitor intakes and output, continue daily weight check, home dose of Lasix is 20 mg p.o, will continue * DC aspirin, the patient does not needed while on Eliquis * Continue Eliquis tomorrow a.m. * ct statin * Repeat echo per cardio * CTA r/o PE * TRC nebs * ct oxygen to keep o2 sats > 92% * Cardiology input appreciated * Continue low-dose carvedilol 6.25 twice daily to prevent rebound tachycardia #Anemia, hemoglobin dropped to 7.4, guaiac positive stool Most likely due to peptic ulcer, was seen on endoscopy, he was taken, will need follow-up outpatient * Start pantoprazole 40 mg twice daily * Guaic all stools * check iron studies, b12 ,folate, reticulocyte count, LFT, Espinoza' test # History of breast cancer s/p lumpectomy, radiation,and chemo * now in remission, will need outpatient mammogram and MRI for follow-up # History of primary embolism * Continue home dose of eliquis 5 mg tomorrow morning # History of hypertension and hyperlipidemia * Continue home medications including simvastatin # history of diabetes mellitus * Hold metformin * We'll start the patient on NovoLog sliding scale * Accu-Cheks. # History of chronic back pain * Continue home dose of Savella # History of anxiety and depression * Continue home medications including Zoloft and Lexapro FC\dvp px\heart healthy diet N.p.o. at midnight for upper GI endoscopy Problem List: 1. Gastric ulcer Pain Ratin Pain Location: n/a Pain Goal: Remain pain free Pain Plan: Serina Tomorrow's Labs & Rationales: CBC Lencho Bhatia 09/08/17 1114: Attending MD Review Statement Attending Statement Attending MD Statement: examined this patient, discuss w/resident/PA/[employer], agreed w/resident/PA/[employer], discussed with family, reviewed EMR data (avail), discussed with nursing, discussed with case mgmt, reviewed images, amended to note Attending Assessment/Plan: Pateint shortness of breath multifactorial likely from anemia of acute blood loss with gastric ulcers and peptic ulcer disease. GI performed EGD today which is suggestive of gastric ulcers without active bleeding. Advacne diet as tolerated. Continue with PO PPI bid x 2 weeks and follow GI as outpatient in 2 weeks. Dyspnea: negative cardiac enzymes. Cardiology f/u ECHO. Stress test as outpatient. Lymphadenopathy observation for now, follow outpatient PET scan with Dr Nieto hematolgoy H/o breast cancer: Mammogram as outpatient with hemaotlogy/oncology Dr Nieto. PE on eliquis, resume tomorrow. anticipate dc in next 24 hrs
[2017-09-08 07:50] LABS: ABSOLUTE BASOPHIL COUNT 0 /CUMM (0.0-0.2); ABSOLUTE EOSINOPHIL COUNT 0.2 /CUMM (0.0-0.7); ABSOLUTE GRANULOCYTE CT 2.7 /CUMM (1.4-6.5); ABSOLUTE LYMPH COUNT 0.7 /CUMM (1.2-3.4); ABSOLUTE MONOCYTE COUNT 0.2 /CUMM (0.10-0.60); BASOPHIL % 0.5 % (0.0-2.0); EOSINOPHIL % 5.6 % (0-5); GRANULOCYTE % 70.6 % (42.2-75.2); HEMATOCRIT 25.9 % (37-47); MEAN CORPUSCULAR HGB 29.6 PG (27.0-31.0); MEAN CORPUSCULAR HGB CONC 33.9 G/DL (33.0-37.0); MEAN CORPUSCULAR VOLUME 87.3 FL (81.0-99.0); PLATELET COUNT 243 /CUMM (130-400); RBC DISTRIBUTION WIDTH 13.8 % (11.5-14.5); RED BLOOD CELL CT 2.96 /CUMM (4.20-5.40); WHITE BLOOD CELL COUNT 3.8 /CUMM (4.8-10.8)
--- NOTE | 2017-09-08 08:00 | PN- Oncology ---
Subjective Subjective: She feels better after the transfusion. Shortness of breath has improving. She denies any new fever or chills. She has no new swelling. She has been seen by Dr. Mancera. Review of Systems Constitutional: Denies: chills, diaphoresis, fever, malaise. EENTM: Denies: blurred vision, double vision. Cardiovascular: Denies: chest pain. Respiratory: Denies: hemoptysis, orthopnea, short of breath. Gastrointestinal: Denies: abdominal pain, diarrhea, melena, bloody stool, vomiting. Musculoskeletal: Denies: back pain. Neurological/Psychological: Denies: anxiety, confusion. Hematologic/Endocrine: Denies: bruising, bleeding. All Other Systems: Reviewed and Negative Objective Vital Signs and I&Os Vital Signs Date Time Temp Pulse Resp B/P B/P Pulse O2 O2 Flow FiO2 Mean Ox Delivery Rate 09/08 617 97.7 94 18 120/80 97 09/07 2204 98.4 94 18 98/64 97 09/07 2136 90 86/60 09/07 1919 96 16 94/60 09/07 1820 99 84/60 09/07 1712 97 88/54 09/07 1600 Room Air 09/07 1424 98.1 114 18 122/70 98 Room Air 09/07 1310 108 112/80 09/07 0811 104 110/64 09/07 0800 96 Room Air Intake & Output 09/08 0800 09/08 0000 09/07 1600 09/07 0800 09/07 0000 09/06 1600 Intake Total 450 850 0 Output Total 200 Balance 250 850 0 Intake, Blood 350 Product Intake, Oral 450 500 0 Number 0 Bowel Movements Output, Urine 200 Patient 82.355 kg 81.363 kg 80.739 kg Weight Weight Reported by Patient Reported by Patient Measurement Method Physical Exam: General Appearance: well developed/nourished, no apparent distress, alert, awake , comfortable Head: atraumatic, normal appearance Cardiovascular: murmur, tachycardia Breasts left breast mass in the upper outer quadrant, tender to palpation Gastrointestinal: normal bowel sounds, soft, non-tender Extremities: normal inspection, no edema Neurologic/Psych: awake, alert, oriented x 3 Cranial Nerves: normal hearing, normal speech Skin: warm/dry, ecchymosis (in the LUE) Lymphatic: no anterior cervical kori Current Medications: Current Medications Sig/Estephania Start time Last Medication Dose Route Stop Time Status Admin Acetaminophen 650 MG .STK-MED ONE 09/07 1708 DC PO 09/07 1709 Acetaminophen 650 MG Q6P PRN 09/06 2315 AC 09/07 PO 1718 Apixaban 5 MG BID 09/07 0900 DC PO Aspirin 81 MG DAILY 09/07 1151 AC 09/07 PO 1310 Aspirin Buffered 81 MG DAILY 09/07 0900 DC PO Atorvastatin Calcium 40 MG DAILY 09/07 0900 DC PO Atorvastatin Calcium 40 MG DAILY 09/07 0900 AC 09/07 PO 0817 Carvedilol 6.25 MG BID 09/07 1151 AC 09/07 PO 1310 Escitalopram Oxalate 20 MG DAILY 09/07 0900 DC PO Escitalopram Oxalate 20 MG DAILY 09/07 0900 AC 09/07 PO 0810 Insulin Aspart 0 TIDAC 09/07 0800 AC 09/07 SC 1711 Losartan Potassium 50 MG DAILY 09/07 0900 DC PO Losartan Potassium 50 MG DAILY 09/07 0900 AC 09/07 PO 0811 Multivitamins 1 TAB DAILY 09/07 0900 AC 09/07 PO 0810 Pantoprazole Sodium 40 MG DAILY 09/07 0900 AC 09/07 IV 0812 Patient Medication 1 ED ONE ONE 09/07 1630 DC Teaching ED 09/07 1631 Zolpidem Tartrate 5 MG AT BEDTIME 09/07 0100 AC 09/07 PO 2315 Results Last 24 Hours of Lab Results: Laboratory Tests 09/08 09/07 09/07 0610 1808 0830 Chemistry Sodium (137 - 145 mmol/L) 142 Potassium (3.5 - 5.1 mmol/L) 4.3 Chloride (98 - 107 mmol/L) 107 Carbon Dioxide (22 - 30 mmol/L) 24 Anion Gap (5 - 16) 10 BUN (7 - 17 mg/dL) 23 H Creatinine (0.5 - 1.0 mg/dL) 1.1 H Estimated GFR (>60 ml/min) 49 L BUN/Creatinine Ratio (7 - 25 %) 20.9 Hematology CBC w Diff Pending NO MAN DIFF REQ WBC (4.8 - 10.8 /CUMM) Pending 5.8 RBC (4.20 - 5.40 /CUMM) Pending 2.98 L Hgb (12.0 - 16.0 G/DL) Pending 8.9 L Hct (37 - 47 %) Pending 26.4 L MCV (81.0 - 99.0 FL) Pending 88.5 MCH (27.0 - 31.0 PG) Pending 29.7 MCHC (33.0 - 37.0 G/DL) Pending 33.6 RDW (11.5 - 14.5 %) Pending 13.8 Plt Count (130 - 400 /CUMM) Pending 292 MPV (7.4 - 10.4 FL) Pending 8.7 Gran % (42.2 - 75.2 %) 76.2 H Lymphocytes % (20.5 - 51.1 %) 13.4 L Monocytes % (1.7 - 9.3 %) 6.4 Eosinophils % (0 - 5 %) 3.5 Basophils % (0.0 - 2.0 %) 0.5 Absolute Granulocytes (1.4 - 6.5 /CUMM) 4.5 Absolute Lymphocytes (1.2 - 3.4 /CUMM) 0.8 L Absolute Monocytes (0.10 - 0.60 /CUMM) 0.4 Absolute Eosinophils (0.0 - 0.7 /CUMM) 0.2 Absolute Basophils (0.0 - 0.2 /CUMM) 0 Retic Count (0.5 - 2.0 %) 2.93 H Assessment/Plan Assessment/Recommendations: Ms. Rubin is a 71-year-old female with stage IB invasive ductal carcinoma of the left breast (ER/UT-, HER2+) s/p neoadjuvant AC, lumpectomy, adjuvant paclitaxel/trastuzumab complicated by CHF, radiation, CHF, DM, PE on apixaban, depression, fibromyaliga, and HTN who presented to the [facility] after 1- 2 weeks of weakness and dyspnea with exertion. She has been progressive getting worse with fatigue and catching her breathe with walking. On admission, she was noted to have hemoglobin of 8.4 and hematocrit of 24.9. Repeated blood work today demonstrated hemoglobin of 7.4 and hematocrit of 22.0. Her WBC and platelets are normal on admission. WBC is slight decreased today. Chemistry demonstrated stable but elevate creatinine. Stool guaic was positive. She has no obvious evidence of bleeding. Type and screen was negative for antibodies. Iron study demonstrated normal ferritin, serum iron, and TIBC. Vitamin B12 and folate were normal. TSH was normal. GI was consulted for possible GI bleeding. Her last colonoscopy was in 2016. This demonstrated diverticulosis. Reticulocyte count is elevated but slight low when adjusted for level of anemia. Espinoza negative. She has no evidence of hemolysis. She may have anemia of chronic disease on top of GI bleeding. EGD is being planned for today. If evaluation is negative, she will need further work up with SPEP and UPEP. She has new breast tenderness. This may be normal pain after surgery which may last for years. Last mammogram is in 02/2017. She will get outpatient mammogram/US of the left breast to further evaluate these new symptoms. This is unlikely to be related to current admission. Mediastina mass has been stable to slightly improved. This may be monitored for now. Normocytic anemia: -follow up GI evaluation Mediastinal mass: -monitor for now -consider MRI as outpatient Left breast cancer: -Diagnostic mammogram/US of left breast given new breast symptoms, may be done as outpatient PE: -continue apixaban Please call [phone] with any questions or concerns Problem List: 1. Mediastinal mass 2. Symptomatic anemia 3. Breast cancer
--- NOTE | 2017-09-08 08:23 | Proc Note Endoscopy ---
Endoscopy Procedure Medical History: unchanged (see meditech consult) Mental Status: alert/oriented Heart/Lung Eval Prior to Sedation: within normal limits Candidate for Sedation? Yes Procedure Date: 09/08/17 Procedure Type: EGD w/biopsy Installment Agent: Kiko Mancera MD ASA Classification: III Indications: Anemia. Guaiac positive stool. Instrument: diagnostic gastroscope Meds Received: MAC Patient's Tolerance: good Complications: none Extent Reached: second part of duodenum Procedure: After getting written informed consent the patient was placed in the left lateral decubitus position with pulse oximetry, cardiac monitoring, and supplemental oxygen given. A bite block was inserted and IV sedation was given until the desired effect was achieved. A high definition upper Olympus endoscope was then inserted into the mouth and advanced to the second portion of the duodenum with little difficulty. Retroflexed views and photodocumentation was obtained. Findings: Esophagus: The esophageal mucosa was grossly normal appearance and there was a normal-appearing Z line at 35 cm from the incisors. Stomach: The antral mucosa was moderately erythematous and there was a 1 cm cratered benign-appearing ulcer with a red spot, but no active bleeding or visible vessel was appreciated. Biopsies were obtained from around the edge of the ulcer with cold biopsy forceps and were sent to pathology for further evaluation and random biopsies were also obtained from the antrum with cold biopsy forceps and were sent to pathology for further evaluation. The remainder of the gastric mucosa was grossly normal in appearance. There were no erosions or masses appreciated. Distention and peristalsis of the stomach appeared normal. Retroflexed views were normal did not reveal a significant hiatal hernia. Duodenum: The duodenal bulb, sweep, and folds were grossly normal in appearance. Impression: 1. 1 cm benign-appearing gastric ulcer status post biopsies. 2. Nonerosive gastritis status post random biopsies. 3. No active bleeding appreciated. Recommendations: 1. Would start omeprazole 40 mg twice a day for 2 weeks and then daily dosing. 2. There are no absolute GI contraindications to resuming anticoagulation if medically indicated, but would hold off on restarting it until tomorrow in light of the biopsies done on this procedure. 3. She should be placed on oral iron supplementation. 4. She should avoid [id number] NSAIDs. 5. She should follow the pathology results me as an outpatient. 6. Consideration should be given to repeat the upper endoscopy in 2-3 months to confirm healing of the ulcer based on the results of the pathology. CC: Ana GO,Rizwan Mccollum
--- NOTE | 2017-09-08 10:30 | PN- Cardiology ---
Subjective Subjective: She reports feeling much better today. Objective Vital Signs and I&Os Vital Signs Date Time Temp Pulse Resp B/P B/P Pulse O2 O2 Flow FiO2 Mean Ox Delivery Rate 09/08 0948 120/80 09/08 0947 94 120/80 09/08 0618 97.7 94 18 120/80 97 09/07 2204 98.4 94 18 98/64 97 09/07 2136 90 86/60 09/07 1919 96 16 94/60 09/07 1820 99 84/60 09/07 1712 97 88/54 09/07 1600 Room Air 09/07 1424 98.1 114 18 122/70 98 Room Air 09/07 1310 108 112/80 Intake & Output 09/08 1600 09/08 0800 09/08 0000 09/07 1600 09/07 0800 09/07 0000 Intake Total 450 850 0 Output Total 200 Balance 250 850 0 Intake, Blood 350 Product Intake, Oral 450 500 0 Number 0 Bowel Movements Output, Urine 200 Patient 182 lb 179 lb 178 lb Weight Weight Reported by Patient Reported by Patient Measurement Method Physical Exam: General: no apparent distress. Alert. Eyes: No obvious scleral icterus. HEENT: No jugular venous distention or abnormal jugular venous pulsations. Cardiovascular: Normal intensity S1/S2. Regular Respiratory: Lungs clear to auscultation bilaterally. Abdomen: no guarding or rebound tenderness. Musculoskeletal: No clubbing or cyanosis noted Skin: warm Neurologic: No gross focal deficits noted. Current Medications: Current Medications Sig/Estephania Start time Last Medication Dose Route Stop Time Status Admin Acetaminophen 650 MG .STK-MED ONE 09/07 1708 DC PO 09/07 1709 Acetaminophen 650 MG Q6P PRN 09/06 2315 AC 09/07 PO 1718 Apixaban 5 MG BID 09/08 0900 AC PO Aspirin 81 MG DAILY 09/07 1151 AC 09/08 PO 0950 Atorvastatin Calcium 40 MG DAILY 09/07 0900 AC 09/08 PO 0948 Carvedilol 6.25 MG BID 09/07 1151 AC 09/08 PO 0948 Chlorhexidine 1 GM .STK-MED ONE 09/08 0853 DC Gluconate TOP 09/08 0854 Escitalopram Oxalate 20 MG DAILY 09/07 0900 AC 09/08 PO 0947 Insulin Aspart 0 TIDAC 09/07 0800 AC 09/08 SC 0944 Losartan Potassium 50 MG DAILY 09/07 899 AC 09/08 PO 0947 Multivitamins 1 TAB DAILY 09/07 899 AC 09/08 PO 0948 Pantoprazole Sodium 40 MG BID 09/08 900 AC 09/08 IV 0947 Pantoprazole Sodium 40 MG DAILY 09/07 899 AR 09/07 IV 0812 Patient Medication 1 ED ONE ONE 09/07 1630 AR Teaching ED 09/07 1631 Zolpidem Tartrate 5 MG AT BEDTIME 09/07 0100 09/07 PO 2315 Results Last 48 Hrs of Labs/Mics: Laboratory Tests 09/08/17 0610: Anion Gap 10, Estimated GFR 49 L, BUN/Creatinine Ratio 20.9, CBC w Diff NO MAN DIFF REQ, RBC 2.96 L, MCV 87.3, MCH 29.6, MCHC 33.9, RDW 13.8, MPV 9.0, Gran % 70.6, Lymphocytes % 17.1 L, Monocytes % 6.2, Eosinophils % 5.6 H, Basophils % 0.5, Absolute Granulocytes 2.7, Absolute Lymphocytes 0.7 L, Absolute Monocytes 0.2, Absolute Eosinophils 0.2, Absolute Basophils 0 09/07/17 1808: CBC w Diff NO MAN DIFF REQ, RBC 2.98 L, MCV 88.5, MCH 29.7, MCHC 33.6, RDW 13.8 , MPV 8.7, Gran % 76.2 H, Lymphocytes % 13.4 L, Monocytes % 6.4, Eosinophils % 3.5, Basophils % 0.5, Absolute Granulocytes 4.5, Absolute Lymphocytes 0.8 L, Absolute Monocytes 0.4, Absolute Eosinophils 0.2, Absolute Basophils 0 09/07/17 0830: Retic Count 2.93 H 09/07/17 0500: Anion Gap 10, Estimated GFR 40 L, BUN/Creatinine Ratio 23.1, Total Bilirubin 0.2, Direct Bilirubin 0.2, AST 20, ALT 27, Alkaline Phosphatase 80, Troponin I < 0.01, Total Protein 5.6 L, Albumin 3.4 L, CBC w Diff NO MAN DIFF REQ, RBC 2.51 L, MCV 87.6, MCH 29.5, MCHC 33.6, RDW 13.5, MPV 8.3, Gran % 67.8, Lymphocytes % 18.5 L, Monocytes % 8.7, Eosinophils % 4.5, Basophils % 0.5, Absolute Granulocytes 3.0, Absolute Lymphocytes 0.8 L, Absolute Monocytes 0.4, Absolute Eosinophils 0.2, Absolute Basophils 0 09/06/172226: Troponin I < 0.01 09/06/171918: Anion Gap 12, Estimated GFR 40 L, BUN/Creatinine Ratio 23.8, Glucose 148 H, Calcium 9.6, Magnesium 1.8, Iron 47, TIBC 360, Ferritin 24.4, Troponin I < 0.01, Ffy-F-Ahqohueazqz Pept 44.5, Vitamin B12 461, Folate > 20.0 H, TSH 3.440, Free T4 1.13, D-Dimer High Sensitivty < 200, CBC w Diff NO MAN DIFF REQ, RBC 2.87 L, MCV 86.9, MCH 29.3, MCHC 33.7, RDW 13.5, MPV 8.6, Gran % 76.4 H, Lymphocytes % 15.1 L, Monocytes % 5.7, Eosinophils % 2.7, Basophils % 0.1, Absolute Granulocytes 4.7, Absolute Lymphocytes 0.9 L, Absolute Monocytes 0.4, Absolute Eosinophils 0.2, Absolute Basophils 0 Recent Imaging Studies: Telemetry tracings are personally reviewed and shows sinus rhythm and sinus tachycardia Endoscopy 1. 1 cm benign-appearing gastric ulcer status post biopsies. 2. Nonerosive gastritis status post random biopsies. 3. No active bleeding appreciated. Assessment/Plan Assessment/Plan 1. Shortness of breath most likely secondary to her anemia. There is no evidence of congestive heart failure on chest x-ray and her BNP was normal. Of concern is also the possibility of a cardiomyopathy although her ejection fraction was 50% in March of this year and she has not received any further chemotherapy since that time. 2. Bilateral pulmonary embolism by history on Eliquis diagnosed 08/2016 3. Hypertension 4. Hyperlipidemia 5. Carcinoma the breast status post lumpectomy with radiation and chemotherapy 6. Hyperlipidemia 7. Heme positive stools Remains hemodynamically stable. Continue Coreg and losartan. Resume Eliquis when cleared; she likely does not need aspirin while on Eliquis. Endoscopy results as above. Remains euvolemic on exam. Echocardiogram is pending. Quincy Barnes MD [facility] Continue telemetry? No
[2017-09-08] MEDS ORDERED: TYLENOL325 M1 PO (10:54)
[2017-09-08] MEDS ORDERED: OMEPRAZOLE40 M1 PO (10:54)
[2017-09-08] MEDS ORDERED: CARVEDILOL6.25 M1 PO (10:54)
[2017-09-08] MEDS ORDERED: BIOTIN2500 MCG PO (10:57)
--- NOTE | 2017-09-08 11:00 | Patient Discharge Instructions ---
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 reamer in 1 week of discharge 3please follow-up with your career transition specialist in 1 week of discharge 4please follow-up with his oncologist in 1 week of discharge 5please obtain mammogram and MRI of the breast as outpatient 6please start taking your Eliquis on 09/09/17 7please stop taking NSAIDs and aspirin 8please come to the ED if you notice blood or black stools 9please follow-up with your PCP for the results of the biopsy of GI endoscopy 10- please get CBC checked in 3 days of discharge Diet Continue normal diet: No Recommended Diet: Diabetic Acute Coronary Syndrome Inclusion Criteria At DC or during hospital stay patient has or had the following: ACS DIAGNOSIS No Discharge Core Measures Meds if any: Prescribed or Continued at Discharge Meds if any: NOT Prescribed or Continued at Discharge Congestive Heart Failure Inclusion Criteria At DC or during hospital stay patient has or had the following: CHF DIAGNOSIS No Discharge Core Measures Meds if any: Prescribed or Continued at Discharge Meds if any: NOT Prescribed or Continued at Discharge Cerebrovascular accident Inclusion Criteria At DC or during hospital stay patient has or had the following: CVA/TIA Diagnosis No Discharge Core Measures Meds if any: Prescribed or Continued at Discharge Meds if any: NOT Prescribed or Continued at Discharge Venous thromboembolism Inclusion Criteria VTE Diagnosis No VTE Type NONE VTE Confirmed by (Test) NONE Discharge Core Measures - Per Current guidelines, there needs to be overlap - treatment for the first 5 days of Warfarin therapy. - If discharged on Warfarin prior to 5 days of - overlap therapy, the patient will need to be - assessed for post discharge needs including - *Post discharge parental anticoagulation - *Warfarin and/or parental anticoagulation education - *Follow up date to check INR post discharge At least 5 days overlap therapy as Inpatient No Meds if any: Prescribed or Continued at Discharge Note: Overlap Therapy is Warfarin and Anticoagulant Meds if any: NOT Prescribed or Continued at Discharge
--- NOTE | 2017-09-08 11:07 | Discharge Summary ---
Visit Information Visit Dates Admission Date: 09/06/17 Discharge Date: 09/09/17 Hospital Course Course Attending Physician: Lencho Bhatia MD Primary Care Physician: Rizwan Perez MD Hospital Course: 71-year-old female with past medical history of stage Ia breast cancer status post lumpectomy, chemotherapy and radiation, currently in remission, fibromyalgia, [id number] diabetes mellitus, previous pulmonary emboli on Eliquis, depression on Lexapro, heart failure with reduced EF, hypertension, fibromyalgia,HL,depression on lexapro came in with chief complaint of worsening shortness of breath since 2 weeks prior to presentation. Of note she was diagnosed with stage Ia breast cancer, had radiation in October 2016 and was treated with chemotherapy with paclitaxel and trastuzumab, s/p lumpectomy follows with Dr. Tillman, now in remission. She was also found to have pulmonary emboli and was started on Eliquis. She had a recent nuclear stress test as outpatient with Dr. Oleg Liriano( approx 6 months back) which according to her was found to be within normal limits. Patient was admitted to telemetry for treatment of the following conditions: #Chest pain with Shortness of breath possibly secondary to heart failure with reduced ejection fraction. * Tropes and EKG were negative which ruled out * Continue to monitor intakes and output, continue daily weight check, she was kept on her home dose of Lasix * aspirin, and Eliquis were initially discontinued because the patient was guaiac test positive and then were restarted after the patient had upper endoscopy * Echocardiogram showed only mild LVH she was a started on low-dose carvedilol 6.25 twice daily to prevent rebound tachycardia #Anemia, hemoglobin dropped to 7.4, guaiac positive stool Most likely due to peptic ulcer, was seen on endoscopy, he was taken, will need follow-up outpatient. It was a stable after 1 unit of PRBCs, patient was started on pantoprazole 40 mg twice daily for 1 months to be decreased to 40 mg daily afterwards. She was given GI referral to follow-up outpatient * check iron studies, b12 ,folate, reticulocyte count, LFT, Espinoza' test did not show any evidence of hemolytic anemia # History of breast cancer s/p lumpectomy, radiation,and chemo * now in remission, will need outpatient mammogram and MRI for follow-up # History of pulmonary embolism * Continued home dose of eliquis 5 mg tomorrow morning # History of hypertension and hyperlipidemia * Continued home medications including simvastatin # history of diabetes mellitus * Held metformin * We'll start the patient on NovoLog sliding scale * Accu-Cheks. # History of chronic back pain * Continue home dose of Savella # History of anxiety and depression * Continue home medications including Zoloft and Lexapro FC\dvp px\heart healthy diet Allergies: Coded Allergies: No Known Allergies (06/10/17) Significant Procedures: upper GI endoscopy Disposition Summary Disposition Principal Diagnosis: Severe anemia likely secondary to gastric ulcer Additional Diagnosis: History of breast cancer status post lumpectomy Discharge Disposition: home or self care Discharge Instructions General Discharge Information Code Status: Full Code Patient's Diet: Heart healthy Patient's Activity: As tolerated Follow-Up Instructions/Appts: 1please follow-up with your PCP in 1 week of discharge 2please follow-up with your outplacement consultant in 1 week of discharge 3please follow-up with your asic design engineer in 1 week of discharge 4please follow-up with his oncologist in 1 week of discharge 5please obtain mammogram and MRI of the breast as outpatient 6please start taking your Eliquis on 09/09/17 7please stop taking NSAIDs and aspirin 8please come to the ED if you notice blood or black stools 9please follow-up with your PCP for the results of the biopsy of GI endoscopy 10- please get CBC checked in 3 days of discharge Medications at Discharge Discharge Medications: Stop taking the following medications: Aspirin (Ecotrin*) 81 MG TABLET.DR ORAL DAILY Meloxicam (Meloxicam) 15 MG TABLET ORAL DAILY Qty = 90 Continue taking these medications: Simvastatin (Simvastatin*) 40 MG TABLET 1 Tablet ORAL Every night Multivitamin (Daily Multiple Vitamin) 1 EACH TABLET 1 Tablet ORAL DAILY Comments: Last Taken: SEPTEMBER 09 Time: 0900 Escitalopram Oxalate (Escitalopram Oxalate) 20 MG TABLET 1 Tablet ORAL DAILY Comments: Last Taken: 09/10/17 Time: 0900 Milnacipran HCl (Savella) 25 MG TABLET 1 Tablet ORAL TWICE DAILY Qty = 180 Comments: NOT GIVEN AT HOSPITAL Metformin HCl (Metformin HCl) 1,000 MG TABLET 1 Tablet ORAL TWICE DAILY Qty = 60 Instructions: . Comments: NOT GIVEN THIS ADMISSION Apixaban (Eliquis) 5 MG TABLET 1 Tablet ORAL TWICE DAILY Qty = 60 Instructions: .START THIS MEDICATION ON 09/10/16 Furosemide (Lasix) 20 MG TABLET 1 Tablet ORAL DAILY Sitagliptin Phosphate (Januvia) 50 MG TABLET 1 Tablet ORAL DAILY Qty = 90 Valsartan (Diovan) 160 MG TABLET 1 Tablet ORAL DAILY Zolpidem Tartrate (Zolpidem Tartrate) 5 MG TABLET 1 Tablet ORAL Every night as needed Qty = 30 Biotin (Biotin) 2,500 MCG CAPSULE 1 Capsule ORAL DAILY Qty = 30 This prescription has been renewed Start taking the following new medications: Carvedilol (Carvedilol) 6.25 MG TABLET 6.25 Milligram ORAL TWICE DAILY Qty = 60 No Refills Comments: Last Taken: SEPTEMBER 09 Time: 0900 Acetaminophen (Tylenol) 325 MG TABLET 650 Milligram ORAL EVERY 8 HOURS NEEDED as needed for moderate pain Qty = 30 No Refills Omeprazole (Omeprazole) 40 MG CAPSULE.DR 1 Capsule ORAL TWICE DAILY Qty = 60 No Refills Comments: Last Taken: SEPTEMBER 09 Time: 0900 Copies To: Ana GO,Rizwan Mccollum
--- NOTE | 2017-09-08 18:38 | ECHOCARDIOGRAM REPORT ---
NATALEE SWENSON Age: 71 : 1945 Gender: F Exam Date: 09/08/2017 16:56 Exam Location: 1 [address] Ht (in): 64 Wt (lb): 179 BSA: 1.94 BP: 110 / 64 Ordering Physician: Susan Lopez MD Referring Physician: Dave Barnes M.D. Technologist: Saritha Morton [facility] Room Number: [id number] Indications: CARDIOMYOPATHY Rhythm: Sinus Technical Quality: fair FINDINGS Left Ventricle Normal size left ventricle. Left ventricular wall thickness mildly increased. Normal left ventricular ejection fraction estimated at 60-65%. Abnormal relaxation filling pattern of the left ventricle for age (stage 1 diastolic dysfunction). Right Ventricle Normal right ventricular size and function. Right Atrium Normal right atrial size. Left Atrium Left atrial size at the upper limits of normal. Mitral Valve Structurally normal mitral valve. Trace to mild mitral regurgitation. Aortic Valve Aortic valve not well visualized, grossly normal. Tricuspid Valve Tricuspid valve is normal in structure and function. Trace to mild tricuspid regurgitation. Right ventricular systolic pressure estimated to be within the normal range at 20 mmHg. Pulmonic Valve Pulmonic valve not well visualized, grossly normal. Pericardium No pericardial effusion. Great Vessels Normal size aortic root. CONCLUSIONS Normal left and right ventricular systolic function. Mild left ventricular hypertrophy. No significant valvular abnormalities noted. Oleg Griffin M.D. (Electronically Signed) Final Date: 08 September 2017 18:37 MEASUREMENTS (Male / Female) Normal Values 2D ECHO LV Diastolic Diameter PLAX 3.9 cm 4.2 - 5.9 / 3.9 - 5.3 cm LV Systolic Diameter PLAX 2.7 cm 2.1 - 4.0 cm LV Fractional Shortening PLAX 30.8 % 25 - 46 % LV Ejection Fraction 2D Teich 59.0 % IVS Diastolic Thickness 1.2 cm LVPW Diastolic Thickness 1.1 cm LV Relative Wall Thickness 0.6 RV Internal Dim ED PLAX 2.4 cm 1.9 - 3.8 cm LVOT Diameter 1.9 cm Aortic Root Diameter 2.6 cm LA Systolic Diameter LX 3.1 cm 3.0 - 4.0 / 2.7 - 3.8 cm LA Volume 25.0 cm 18 - 58 / 22 - 52 cm Ascending Aorta Diameter 3.1 cm DOPPLER AV Peak Velocity 148.0 cm/s AV Peak Gradient 8.8 mmHg AV Mean Velocity 107.0 cm/s AV Mean Gradient 5.0 mmHg AV Velocity Time Integral 27.8 cm LVOT Peak Velocity 99.3 cm/s LVOT Peak Gradient 3.9 mmHg LVOT Mean Velocity 74.8 cm/s LVOT Mean Gradient 2.0 mmHg LVOT Velocity Time Integral 20.6 cm LVOT Stroke Volume 58.4 cm AV Area Cont Eq vti 2.1 cm AV Area Cont Eq pk 1.9 cm MV Peak Velocity 120.0 cm/s MV Peak Gradient 5.8 mmHg MV Mean Velocity 71.8 cm/s MV Mean Gradient 2.0 mmHg Mitral E Point Velocity 79.5 cm/s Mitral A Point Velocity 111.0 cm/s Mitral E to A Ratio 0.7 MV PHT Velocity 95.0 cm/s MV Deceleration [place] 348.0 cm/s MV Pressure Half Time 81.9 ms MV Area PHT 2.7 cm MV Deceleration Time 180.0 ms TR Peak Velocity 190.0 cm/s TR Peak Gradient 14.4 mmHg Right Atrial Pressure 5.0 mmHg Pulmonary Artery Systolic Pressu 19.4 mmHg Right Ventricular Systolic Press 19.4 mmHg PV Peak Velocity 119.0 cm/s PV Peak Gradient 5.7 mmHg PV Mean Velocity 81.9 cm/s PV Mean Gradient 3.0 mmHg PV Velocity Time Integral 23.9 cm LV E' Lateral Velocity 9.6 cm/s Mitral E to LV E' Lateral Ratio 8.3 LV E' Septal Velocity 6.7 cm/s Mitral E to LV E' Septal Ratio 11.9
[2017-09-09] VITALS: BP 102/80
[2017-09-09 04:00] VITALS: BP 120/74
--- NOTE | 2017-09-09 07:07 | PN- Housestaff ---
Sandra GO,Tish 09/09/17 0707: Subjective Follow-up For: 1. Exertional dyspnea with minimal exertion, associated with chest heaviness and palpitations 2. Rule out ACS, nonspecific EKG changes 3. Severe anemai 4. Guiac positive stool 5. Gastric ulcer Tele-Events Since Last Visit: Sinus tachycardia, heart rate 1001 06, no overnight events Subjective: Patient was seen and examined, no overnight events, stable vital signs, denies any complaints Review of Systems Constitutional: Reports: see HPI. Objective Last 24 Hrs of Vital Signs/I&O Vital Signs Date Time Temp Pulse Resp B/P B/P Pulse O2 O2 Flow FiO2 Mean Ox Delivery Rate 09/09 0901 120/74 09/09 0901 120/74 09/09 0400 98.7 88 18 120/74 99 Room Air 09/09 0000 102/80 09/08 2027 100 110/50 09/08 2000 98.1 100 20 110/50 100 Room Air 09/08 1727 116/72 09/08 1600 82 09/08 1600 100/68 09/08 1445 97.9 90 17 95/54 97 Room Air Intake & Output 09/09 1600 09/09 0800 09/09 0000 Intake Total 240 480 Output Total Balance 240 480 Intake, Oral 240 480 Patient 188 lb Weight Weight Bed scale Measurement Method Physical Exam General Appearance: Alert, Oriented X3, Cooperative, No Acute Distress Cardiovascular: Normal S1, Normal S2 Lungs: Clear to Auscultation Abdomen: Normal Bowel Sounds, Soft, No Tenderness Extremities: No Clubbing, No Cyanosis, No Edema Assessment/Plan Assessment: #Chest pain with Shortness of breath possibly secondary to heart failure with reduced ejection fraction. * Tropes and EKG ruled out ACS * Continue to monitor intakes and output, continue daily weight check, home dose of Lasix is 20 mg p.o, will continue * DC aspirin, the patient does not needed while on Eliquis * Continue Eliquis tomorrow a.m. * ct statin * Repeat echo per cardio * CTA r/o PE * TRC nebs * ct oxygen to keep o2 sats > 92% * Cardiology input appreciated * Continue low-dose carvedilol 6.25 twice daily to prevent rebound tachycardia #Anemia, hemoglobin dropped to 7.4, guaiac positive stool Most likely due to peptic ulcer, was seen on endoscopy, he was taken, will need follow-up outpatient * Start pantoprazole 40 mg twice daily * Guaic all stools * check iron studies, b12 ,folate, reticulocyte count, LFT, Espinoza' test # History of breast cancer s/p lumpectomy, radiation,and chemo * now in remission, will need outpatient mammogram and MRI for follow-up # History of primary embolism * Continue home dose of eliquis 5 mg tomorrow morning # History of hypertension and hyperlipidemia * Continue home medications including simvastatin # history of diabetes mellitus * Hold metformin * We'll start the patient on NovoLog sliding scale * Accu-Cheks. # History of chronic back pain * Continue home dose of Savella # History of anxiety and depression * Continue home medications including Zoloft and Lexapro Patient is stable for discharge today FC\dvp px\heart healthy diet Problem List: 1. Gastric ulcer 2. Anemia Pain Ratin Pain Location: N/A Pain Goal: Remain pain free Pain Plan: Pathway Tomorrow's Labs & Rationales: N/A Lencho Bhatia 09/09/17 1131: Attending MD Review Statement Attending Statement Attending MD Statement: examined this patient, discuss w/resident/PA/FIXER BOARDING ROOM, agreed w/resident/PA/[facility] ROOM, discussed with family, reviewed EMR data (avail), discussed with nursing, discussed with case mgmt, reviewed images, amended to note Attending Assessment/Plan: [place] medically stable for discharge FOLLOW UP Dr Nieto Oncology in 2-[address] Mancera [facility] in 2 weeks for biopsy results from EGD. PCP Dr Perez in 3-5 days of discharge.
--- NOTE | 2017-09-09 07:34 | PN- Oncology ---
Subjective Subjective: She feels well without any new symptoms. Dyspnea is better. She underwent EGD yesterday by Dr. Mancera. She tolerated the procedure well. Review of Systems Constitutional: Denies: chills, fever, weakness. Cardiovascular: Denies: chest pain. Gastrointestinal: Denies: abdominal pain. Musculoskeletal: Denies: back pain. Neurological/Psychological: Denies: anxiety, ataxia. All Other Systems: Reviewed and Negative Objective Vital Signs and I&Os Vital Signs Date Time Temp Pulse Resp B/P B/P Pulse O2 O2 Flow FiO2 Mean Ox Delivery Rate 09/09 0400 98.7 88 18 120/74 99 Room Air 09/09 0000 102/80 09/08 2027 100 110/50 09/08 2000 98.1 100 20 110/50 100 Room Air 09/08 1727 116/72 09/08 1600 82 09/08 1600 100/68 09/08 1445 97.9 90 17 95/54 97 Room Air 09/08 0948 120/80 09/08 0947 94 120/80 Intake & Output 09/09 0800 09/09 0000 09/08 1600 09/08 0800 09/08 0000 09/07 1600 Intake Total 240 480 450 850 Output Total 200 Balance 240 480 250 850 Intake, Blood 350 Product Intake, Oral 240 480 450 500 Number 0 Bowel Movements Output, Urine 200 Patient 85.304 kg 82.355 kg Weight Weight Bed scale Measurement Method Physical Exam General Appearance: no apparent distress, alert, awake, comfortable Head: normal appearance Respiratory: normal breath sounds, chest non-tender, no respiratory distress, quiet respiration Cardiovascular: regular rate/rhythm, murmur Abdomen: normal bowel sounds, soft, non-tender Extremities: no edema Neurologic/Psychiatric: awake, alert, oriented x 3 Skin: normal color Lymphatic: no anterior cervical kori Current Medications: Current Medications Sig/Estephania Start time Last Medication Dose Route Stop Time Status Admin Acetaminophen 650 MG Q6P PRN 09/06 2315 AC 09/07 PO 1718 Apixaban 5 MG BID 09/09 899 AC PO Apixaban 5 MG BID 09/08 0900 DC PO Aspirin 81 MG DAILY 09/07 1151 DC 09/08 PO 0950 Atorvastatin Calcium 40 MG DAILY 09/07 09 AC 09/08 PO 0948 Carvedilol 6.25 MG BID 09/07 1151 AC 09/08 PO 2026 Chlorhexidine 1 GM .STK-MED ONE 09/08 0853 DC Gluconate TOP 09/08 0854 Escitalopram Oxalate 20 MG DAILY 09/07 09 AC 09/08 PO 0947 Insulin Aspart 0 TIDAC 09/07 08 AC 09/08 SC 1248 Losartan Potassium 50 MG DAILY 09/07 0900 AC 09/08 PO 0947 Multivitamins 1 TAB DAILY 09/07 0900 AC 09/08 PO 0948 Omeprazole 40 MG BID 09/08 2100 AC 09/08 PO 202 Pantoprazole Sodium 40 MG BID 09/08 0901 DC 09/08 IV 0947 Pantoprazole Sodium 40 MG DAILY 09/07 0900 DC 09/07 IV 0812 Zolpidem Tartrate 5 MG AT BEDTIME 09/07 0100 AC 09/08 PO 2319 Results Last 24 Hours of Lab Results: Laboratory Tests 09/10 611 Hematology CBC w Diff Pending WBC Pending RBC Pending Hgb Pending Hct Pending MCV Pending MCH Pending MCHC Pending RDW Pending Plt Count Pending MPV Pending Assessment/Plan Assessment/Recommendations: Ms. 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 She has been progressive getting worse with fatigue and dyspnea with exertion. On admission, she was noted to have hemoglobin of 8.4 and hematocrit of 24.9. Repeated blood work today demonstrated hemoglobin of 7.4 and hematocrit of 22.0. Her WBC and platelets are normal on admission. Chemistry demonstrated stable but elevate creatinine. Stool guaic was positive. She has no obvious evidence of bleeding. Iron study demonstrated normal ferritin, serum iron, and TIBC. Vitamin B12 and folate were normal. TSH was normal. Espinoza was negative. Her last colonoscopy was in 2015 and demonstrated diverticulosis. EGD yesterday demonstrated a 1 cm gastric ulcer and nonerosive gastritis. Reticulocyte count is elevated but slight low when adjusted for level of anemia. She has no evidence of hemolysis. She may have anemia of chronic disease on top of GI bleeding. Blood work seems stable. In addition, she has new breast tenderness. This may be normal pain after surgery which may last for years. Last mammogram is in 02/2017. She will get outpatient mammogram/US of the left breast to further evaluate these new symptoms. This is unlikely to be related to current admission. Mediastinal mass has been stable to slightly improved. This may be evaluated with MRI in the future if needed. Normocytic anemia: -follow up pathology -further work up as outpatient Mediastinal mass: -monitor for now -consider MRI as outpatient if needed Left breast cancer: -Diagnostic mammogram/US of left breast as outpatient PE: -continue apixaban Please call [phone] with any questions or concerns Problem List: 1. Gastric ulcer 2. Mediastinal mass 3. Symptomatic anemia 4. Breast cancer
[2017-09-09 08:27] LABS: ABSOLUTE BASOPHIL COUNT 0 /CUMM (0.0-0.2); ABSOLUTE EOSINOPHIL COUNT 0.2 /CUMM (0.0-0.7); ABSOLUTE GRANULOCYTE CT 3.3 /CUMM (1.4-6.5); ABSOLUTE LYMPH COUNT 0.7 /CUMM (1.2-3.4); ABSOLUTE MONOCYTE COUNT 0.3 /CUMM (0.10-0.60); BASOPHIL % 0.5 % (0.0-2.0); EOSINOPHIL % 4.8 % (0-5); GRANULOCYTE % 72.9 % (42.2-75.2); HEMATOCRIT 25.7 % (37-47); MEAN CORPUSCULAR HGB 29.8 PG (27.0-31.0); MEAN CORPUSCULAR HGB CONC 33.8 G/DL (33.0-37.0); MEAN CORPUSCULAR VOLUME 88.1 FL (81.0-99.0); MEAN PLATELET VOLUME 8.7 FL (7.4-10.4); PLATELET COUNT 276 /CUMM (130-400); RBC DISTRIBUTION WIDTH 13.7 % (11.5-14.5); RED BLOOD CELL CT 2.92 /CUMM (4.20-5.40); WHITE BLOOD CELL COUNT 4.5 /CUMM (4.8-10.8)
[2017-09-09 09:01] VITALS: BP 120/74
== END 2017-09-09 12:30 | DRG 378 ==
LOC: ERH 19:00 → ERHI 21:23 → 1NO 21:23 → ENRESERV 22:37 → 1NO 23:55 → ENPENDDIS 09-09 09:55 → 1NO 09-09 12:30
PROVIDERS: Emergency Medicine; Internal Medicine; Student in an Organized Health Care Education/Training Program
PROC: 30233N1 Transfusion of Nonautologous Red Blood Cells into Peripheral Vein, Percutaneous Approach (ICD-10-PCS; 2017-09-07)
PROC: 0DB68ZX Excision of Stomach, Via Natural or Artificial Opening Endoscopic, Diagnostic (ICD-10-PCS; principal; 2017-09-08)
DX: K25.4 Chronic or unspecified gastric ulcer with hemorrhage (principal); I11.0 Hypertensive heart disease with heart failure; I50.22 Chronic systolic (congestive) heart failure; D50.0 Iron deficiency anemia secondary to blood loss (chronic); E11.9 Type 2 diabetes mellitus without complications; F32.9 Major depressive disorder, single episode, unspecified; M79.7 Fibromyalgia; E78.5 Hyperlipidemia, unspecified; G89.29 Other chronic pain; M54.9 Dorsalgia, unspecified; F41.9 Anxiety disorder, unspecified; Z85.3 Personal history of malignant neoplasm of breast; Z79.01 Long term (current) use of anticoagulants; Z79.84 Long term (current) use of oral hypoglycemic drugs; Z92.21 Personal history of antineoplastic chemotherapy; Z86.711 Personal history of pulmonary embolism
CPT/HCPCS: 1NSP; ERO; 36415; 36592; 71045; 82436; 86920; 93005; 93010; 93306; J3490; P9016